=== PATIENT | female | born 1960 | race Caucasian/White ===

== ENCOUNTER → 2021-11-11 10:27 | Outpatient (CLI) | payer BC, SELFPAY ==
[2021-11-11 19:45] LABS: Hemoglobin A1C% w Est Avg Glu 5.5 % (4.0-6.0)
[2021-11-11 19:46] LABS: Add Manual Diff / Slide Review NO; Basophils Absolute Auto 0 /uL (0-100); Basophils Percent Auto 1.2 % (0-2); Eosinophils Absolute Auto 200 /uL (0-450); Hematocrit 39.5 % (36-46); Hemoglobin 13.2 g/dL (12.0-16.0); Lymphocytes Absolute Auto 1200 /uL (1100-4500); Lymphocytes Percent Auto 28.9 % (25-40); Mean Corpuscular HGB Conc 33.4 % (30-36); Mean Corpuscular Hemoglobin 28.6 PG (26-34); Mean Corpuscular Volume 85.5 fL (80-100); Monocytes Absolute Auto 400 /uL (0-900); Monocytes Percent Auto 8.9 % (3-14); Neutrophils Absolute Auto 2400 /uL (1500-7000); Platelet Count 175 X10^3/uL (150-400); Red Blood Cell Count 4.61 X10^6/uL (4.0-5.2); Red Cell Distribution Width 14.3 % (11.6-14.8); White Blood Cell Count 4.3 X10^3/uL (4.5-11.0)
[2021-11-11 19:51] LABS: Alanine Aminotransferase 13 IU/L (<35); Albumin 3.6 g/dL (3.5-5.0); Albumin Globulin Ratio 1.3 (1.0-2.8); Alkaline Phosphatase 84 U/L (38-126); Aspartate Aminotransferase 23 IU/L (14-36); BUN Creatinine Ratio 13.3 (6-22); Bilirubin Total 0.5 mg/dL (0.2-1.3); Blood Urea Nitrogen 10 mg/dL (7-17); Calcium 8.5 mg/dL (8.4-10.2); Carbon Dioxide 25 mmol/L (22-32); Chloride 107 mmol/L (98-107); Cholesterol 198 mg/dL (140-199); Estimated Glomerular Filt Rate > 60 mL/min (>60); Globulin 2.7 g/dL (1.7-4.1); Glucose 98 mg/dL (80-110); HDL Cholesterol 32 mg/dL (40-60); HEMOLYSIS < 15 (0-50); LDL Cholesterol Calculated 133 mg/dL (<100); Sodium 140 mmol/L (137-145); Total Protein 6.3 g/dL (6.3-8.2); Triglycerides 167 mg/dL (35-150)
[2021-11-11 20:02] LABS: Vitamin D 25 Hydroxy (D3) 45.7 ng/mL (30.0-100.0)
[2021-11-11 20:15] LABS: TSH w/ Reflex to FT4 2.43 uIU/mL (0.47-4.68)
[2021-11-11 20:36] LABS: Vitamin B12 955 pg/mL (239-931)
[2021-11-13 17:09] LABS: Hep C Virus Ab w/Reflex Quant NEGATIVE s/c (NEGATIVE)
== END ==
PROVIDERS: PCP Physician Assistant; Visit Provider Physician Assistant
DX: E55.9 Vitamin D deficiency, unspecified (principal); Z98.84 Bariatric surgery status
CPT/HCPCS: 80053; 80061; 82306; 82607; 83036; 84443; 85025; 86803

== ENCOUNTER → 2022-05-16 10:47 | Outpatient (CLI) | payer BC, SELFPAY ==
--- NOTE | 2022-05-16 10:50 | DI.RAD.S_ITS ---
PROCEDURE: XR FOOT RT MIN 3V INDICATIONS: Pain TECHNIQUE: 3 views of the foot were acquired. COMPARISON: None. FINDINGS: Bones: No fractures or dislocations. No suspicious bony lesions. Moderate calcaneal spur present. There is flattening the longitudinal arch Soft tissues: No tibiotalar joint effusion. Achilles tendon appears normal. IMPRESSION: Moderate calcaneal spur Pes planus Approved by: Ru Alvarenga M.D. on 05/16/2022 at 11:31
== END ==
PROVIDERS: PCP Physician Assistant; Referring Provider Podiatrist Foot & Ankle Surgery; Visit Provider Podiatrist Foot & Ankle Surgery
DX: M21.41 Flat foot [pes planus] (acquired), right foot (principal); M77.31 Calcaneal spur, right foot; M79.671 Pain in right foot
CPT/HCPCS: 73630

== ENCOUNTER → 2022-08-18 10:38 | Outpatient (CLI) | payer BC, SELFPAY ==
--- NOTE | 2022-08-18 10:40 | DI.RAD.S_ITS ---
Bone Density Report Name: JOSE ALEJANDRO TORREZ Age: 61 Sex: Female Ethnicity: White Date of : 1960 Indication: postmenopausal; screening for osteoporosis; Referring Provider: JANICE MARTINEZ Study: Bone densitometry was performed. Exam Date: August 18, 2022 Accession number: [id number] Bone Density: Region BMD T-score Z-score Classification AP Spine(L1, L2, L4) 1.118 0.8 2.2 Normal Femoral Neck (Left) 0.975 1.1 2.4 Normal Total Hip (Left) 0.999 0.5 1.5 Normal Femoral Neck (Right) 0.847 0.0 1.3 Normal Total Hip (Right) 0.980 0.3 1.3 Normal Total Hip Mean 0.989 0.4 1.4 Normal World Health Organization criteria for BMD impression classify patients as: Normal (T-score at or above -1.0), Osteopenia (T-score between -1.0 and -2.5), or Osteoporosis (T-score at or below -2.5). 10-year Fracture Risk: FRAX not reported because: All T-scores for Spine Total, Hip Total, Femoral Neck at or above -1.0 Impression: The patient has normal bone mass. Discussion: BONE DENSITY IS ABOVE THE MINIMUM DESIRABLE LEVEL AT ALL SKELETAL SITES TESTED. This patient's bone mineral density is above the minimum desirable level (T-score -1.0 or better) at all sites measured. The patient should follow a healthful lifestyle (good nutrition with adequate calcium and vitamin D, and appropriate weight-bearing exercise). Follow-Up: Consider repeating this study in 5 years or sooner if there is some new clinical indication. Reported by: NEHEMIAS WEINBERG M.D. on 08/18/2022 12:12:00 PM.
--- NOTE | 2022-08-18 10:40 | DI.MG.S_ITS ---
BILATERAL DIGITAL SCREENING MAMMOGRAM 3D/2D WITH CAD: 08/18/2022 CLINICAL: Routine screening. Baseline exam by default. No prior exams were available for comparison. There are scattered areas of fibroglandular density in both breasts (category b / 25%-50% glandular tissue). Current study was also evaluated with a Computer Aided Detection (CAD) system. No significant masses, calcifications, or other findings are seen in either breast. IMPRESSION: NEGATIVE There is no mammographic evidence of malignancy. A 1 year screening mammogram is recommended. Based on the Tyrer Cuzick model (a risk assessment model) the patient's lifetime risk is 7.0% and her 10 year risk is 2.8%. According to the ACR, ACS, and NCCN guidelines, an annual breast MRI exam along with mammogram is recommended if the patient's lifetime risk is 20% or greater. This exam was interpreted at Station ID: [id number]. NOTE: For mammograms, a report in lay terms will be sent to the patient. Approximately 15% of breast malignancies will not be visualized mammographically. In the management of a palpable breast mass, a negative mammogram must not discourage biopsy of a clinically suspicious lesion. Electronically Signed By: Matt lua/[email or web address]:08/18/2022 12:58:25 letter sent: Normal Exam ACR BI-RADS Category 1: Negative [id number]
== END ==
PROVIDERS: PCP Physician Assistant; Referring Provider Physician Assistant; Visit Provider Physician Assistant
DX: Z12.31 Encounter for screening mammogram for malignant neoplasm of breast (principal); Z13.820 Encounter for screening for osteoporosis; Z78.0 Asymptomatic menopausal state
CPT/HCPCS: 77063; 77067; 77080

== ENCOUNTER → 2023-01-13 09:02 | Outpatient (CLI) | payer OTHER, SELFPAY ==
[2023-01-13 19:56] LABS: Add Manual Diff / Slide Review NO; Basophils Absolute Auto 0 /uL (0-100); Eosinophils Absolute Auto 100 /uL (0-450); Eosinophils Percent Auto 2.6 % (2-4); Hematocrit 39.6 % (36-46); Hemoglobin 13.2 g/dL (12.0-16.0); Lymphocytes Absolute Auto 1800 /uL (1100-4500); Mean Corpuscular HGB Conc 33.3 % (30-36); Mean Corpuscular Hemoglobin 27.8 PG (26-34); Mean Corpuscular Volume 83.6 fL (80-100); Monocytes Absolute Auto 400 /uL (0-900); Neutrophils Absolute Auto 2800 /uL (1500-7000); Neutrophils Percent Auto 54.4 % (50-75); Platelet Count 222 X10^3/uL (150-400); Red Blood Cell Count 4.74 X10^6/uL (4.0-5.2); Red Cell Distribution Width 14.1 % (11.6-14.8); White Blood Cell Count 5.2 X10^3/uL (4.5-11.0)
[2023-01-13 20:10] LABS: Alanine Aminotransferase 19 IU/L (<35); Albumin 3.7 g/dL (3.5-5.0); Albumin Globulin Ratio 1.3 (1.0-2.8); Alkaline Phosphatase 107 U/L (38-126); Aspartate Aminotransferase 23 IU/L (14-36); BUN Creatinine Ratio 18.2 (6-22); Bilirubin Total 0.4 mg/dL (0.2-1.3); Blood Urea Nitrogen 14 mg/dL (7-17); Calcium 9.5 mg/dL (8.4-10.2); Carbon Dioxide 28 mmol/L (22-32); Chloride 104 mmol/L (98-107); Cholesterol 212 mg/dL (140-199); Estimated Glomerular Filt Rate > 60 mL/min (>60); Globulin 2.8 g/dL (1.7-4.1); Glucose 99 mg/dL (80-110); HDL Cholesterol 35 mg/dL (40-60); HEMOLYSIS 19 (0-50); LDL Cholesterol Calculated 123 mg/dL (<100); Sodium 138 mmol/L (137-145); Total Protein 6.5 g/dL (6.3-8.2); Triglycerides 272 mg/dL (35-150)
[2023-01-13 20:11] LABS: Potassium 4.1 mmol/L (3.4-5.1)
[2023-01-13 20:20] LABS: Vitamin D 25 Hydroxy (D3) 91.9 ng/mL (30.0-100.0)
[2023-01-13 21:21] LABS: Folate > 20.0 ng/mL (2.76-20.0); Vitamin B12 Reflex MMA if <400 826 pg/mL (239-931)
== END ==
PROVIDERS: PCP Family Medicine; Visit Provider Family Medicine
DX: R03.0 Elevated blood-pressure reading, without diagnosis of hypertension (principal); Z98.84 Bariatric surgery status; Z13.1 Encounter for screening for diabetes mellitus; Z13.6 Encounter for screening for cardiovascular disorders
CPT/HCPCS: 80053; 80061; 82306; 82607; 82746; 85025

== ENCOUNTER → 2023-04-28 10:34 | Outpatient (CLI) | payer OTHER, SELFPAY ==
--- NOTE | 2023-04-28 10:36 | DI.RAD.S_ITS ---
PROCEDURE: XR KNEE RT 3V INDICATIONS: BILTAERAL PAIN TECHNIQUE: 3 views of the knee were acquired. COMPARISON: None. FINDINGS: Bones: No fractures or dislocations. No suspicious bony lesions. Stippled calcification in the proximal fibular head Soft tissues: No joint effusion. No suspicious soft tissue calcifications. 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 Approved by: Ru Alvarenga M.D. on 04/28/2023 at 19:38
--- NOTE | 2023-04-28 10:36 | DI.RAD.S_ITS ---
PROCEDURE: XR KNEE LT 3V INDICATIONS: BILATERAL PAIN TECHNIQUE: 3 views of the knee were acquired. COMPARISON: None. FINDINGS: Bones: No fractures or dislocations. No suspicious bony lesions. Mild medial compartment joint space narrowing with small marginal osteophyte Soft tissues: No joint effusion. No suspicious soft tissue calcifications. IMPRESSION: Mild medial compartment osteoarthritis Approved by: Ru Alvarenga M.D. on 04/28/2023 at 19:40
--- NOTE | 2023-04-28 10:37 | DI.RAD.S_ITS ---
PROCEDURE: XR HIP W PEL IF DONE BILAT 2V INDICATIONS: BILATERAL PAIN TECHNIQUE: AP pelvis with lateral view(s) of the bilateral hip(s). COMPARISON: None. FINDINGS: Bones: Nonuniform joint space narrowing of the right hip, with osteophytic lipping of the right acetabulum. Nonuniform joint space narrowing of the left hip, with bulky osteophytes of the left femoral neck. Soft tissues: The visualized bowel gas pattern is normal. No suspicious soft tissue calcifications. IMPRESSION: Mild right and moderate left hip osteoarthritis. Dictated by: Aron Sutherland M.D. on 04/28/2023 at 15:07 Approved by: Aron Sutherland M.D. on 04/28/2023 at 15:10
== END ==
PROVIDERS: Family Provider Family Medicine; PCP Family Medicine; Referring Provider Family Medicine; Visit Provider Family Medicine
DX: M25.551 Pain in right hip (principal); M25.552 Pain in left hip; G89.29 Other chronic pain; M25.561 Pain in right knee; M25.562 Pain in left knee; M16.0 Bilateral primary osteoarthritis of hip; M17.12 Unilateral primary osteoarthritis, left knee
CPT/HCPCS: 73521; 73562

== ENCOUNTER 2023-08-03 09:51 | Day surgery (SDC) | payer OTHER, SELFPAY ==
[2023-08-03] MEDS: FLEETS ENEMA 1 EACH PR (10:19)
[2023-08-03 10:32] VITALS: BP 143/88; PULSE 70; RESP 16; TEMP 36.8; O2SAT 97
[2023-08-03] MEDS: LACTATED RINGERS 1,000 ML 42 ML IV (10:38)
--- NOTE | 2023-08-03 10:54 | PM.HP.1 ---
History of Present Illness History of Present Illness Date Patient Seen: 08/03/23 Time Patient Seen: 10:54 Chief complaint: Screening Colonoscopy Narrative: 62-year-old woman here for screening colonoscopy. Last colonoscopy 10 years ago normal. No history of colon cancer in first-degree relatives. Recent heartburn symptoms otherwise no abdominal concerns. FORMERLY [facility], [facility] Medical History Menopausal symptoms Recurrent HSV (herpes simplex virus) Pneumonia Asthma exacerbation Morbid (severe) obesity due to excess calories Surgical History History of bariatric surgery Social History Smoking Status: Never smoker alcohol intake: never additional social history: She climbed half dome at [place] 8 years ago 01/2023 mammogram a couple months ago colon cancer screening: colonoscopy at 51 yo x 10 yrs COLON CANCER in family. 12/2022 Meds Home Medications and Allergies Home Medications Medication Instructions Recorded Confirmed Type cetirizine 10 mg capsule (Zyrtec) 10 mg PO DAILY 10/21/21 08/03/23 History fluticasone furoate 27.5 2 spray intranasal DAILY 10/23/21 08/03/23 History mcg/actuation nasal spray,suspension (Flonase Sensimist) cholecalciferol (vitamin D3) 25 25 mcg PO DAILY #90 caps 02/10/22 08/03/23 Rx mcg (1,000 unit) capsule albuterol sulfate 2.5 mg/3 mL See Rx Instructions .Route 05/11/22 08/03/23 Rx (0.083 %) solution for nebulization .COMPLEX #180 mL albuterol sulfate 90 mcg/actuation 1 inh inhalation Q4-6H PRN asthma 09/24/22 08/03/23 Rx breath activated powder inhaler #1 ea estradiol 0.0375 mg/24 hr 1 patch transdermal 2XW #24 ea 01/29/23 08/03/23 Rx semiweekly transdermal patch (Vivelle-Dot) progesterone micronized 100 mg 100 mg PO BEDTIME 30 days #90 caps 01/29/23 08/03/23 Rx capsule (Prometrium) montelukast 10 mg tablet 10 mg PO DAILY #90 tabs 03/01/23 08/03/23 Rx Custom Pantyhose Style Compression #3 ea 05/03/23 Rx Garments acyclovir 400 mg tablet 400 mg PO BID #60 tabs 07/12/23 08/03/23 Rx esomeprazole magnesium 40 mg 40 mg PO BID 08/03/23 08/03/23 History capsule,delayed release (Nexium) Allergies Allergy/AdvReac Type Severity Reaction Status Date / Time No Known Drug Allergies Allergy Verified 08/03/23 10:25 Exam Vital Signs (past 8 hours): - 08/03/23 10:32 Temperature 98.2 F Pulse Rate 70 Respiratory Rate 16 Blood Pressure 143/88 H Pulse Oximetry 97 Oxygen Delivery Method Room Air Oxygen Delivery Method Room Air Narrative Exam Narrative: General adult woman oriented no acute distress Chest nonlabored respiration Extremities warm well perfused Assessment & Plan Assessment & Plan narrative: The patient requires colorectal screening and colonoscopy is recommended. Technical details were discussed. Risks, benefits, alternatives explained. Risks including but not limited to myocardial infarction, aspiration, bleeding, pain, missed lesion, incomplete examination, need for further radiographic studies, intestinal injury, and need for major abdominal surgery were discussed. All questions were answered to their satisfaction, and they are in agreement with this plan.
[2023-08-03 11:26] VITALS: BP 119/65; PULSE 62; RESP 15; TEMP 36; O2SAT 95
--- NOTE | 2023-08-03 11:27 | P.OP.COLON_ITS ---
Operative Date/Time/Diagnoses Date of procedure: 08/03/23 Time of procedure: 11:27 Pre-op diagnosis: Colorectal screening Procedure & Clinicians Study performed: Screening colonoscopy Same procedure as scheduled: Yes Indications: Colorectal screening Surgeon: Johnny Kim Procedure Notes Procedure in detail: The history and physical was performed/updated and the patient is ASA class is 2. The procedure was discussed in detail with the patient. Potential risks co mplications including infection, bleeding, missed diagnosis, perforation, need for surgery, and were explained. Their questions were answered and informed consent was obtained. Patient was brought to the procedure room and placed standard monitoring equipment. The patient's vital signs were monitored continuously throughout the entire procedure. Prior to starting time-out was performed. The patient was placed in the left lateral recumbent position. Procedural sedation was administered by anesthesia. Examination began with a thorough inspection of the perianal area there was no evidence of fissures, fistulae, external hemorrhoids or cutaneous malignancy. The colonoscopy scope was then placed into the anal canal and was advanced to the cecum, which was identified by the ileocecal valve, the appendiceal orifice and the confluence of the taenia. The scope was then slowly withdrawn examining colon thoroughly in all directions, irrigating it of any residual stool. The scope was retroflexed within the rectum The patient tolerated the procedure well. They will be discharged once criteria are met. The prep was of poor quality. The withdrawl time was 7 minutes. FINDINGS * Tortuous colon * No masses or polyps. The quality of the prep was such that lesions less than 1 cm would not be readily identifiable. * Internal hemorrhoids Specimen(s): none sent Impression: Normal colonoscopy Post-procedure Recommendations: Colonoscopy in 5 years (Five years given the quality of today's prep) Disposition: same day surgery
[2023-08-03 11:31] VITALS: BP 117/67; PULSE 70; RESP 17; O2SAT 96
[2023-08-03 11:36] VITALS: BP 122/62; PULSE 65; RESP 17; O2SAT 97
[2023-08-03 11:46] VITALS: BP 118/65; PULSE 68; RESP 14; TEMP 36.7; O2SAT 98
== END 2023-08-03 12:12 | disposition home or self-care (01) ==
PROVIDERS: Family Provider Family Medicine; PCP Family Medicine; Referring Provider Surgery; Visit Provider Surgery
PROC: 0DJD8ZZ Inspection of Lower Intestinal Tract, Via Natural or Artificial Opening Endoscopic (ICD-10-PCS; CPT 45378; principal; 2023-08-03 11:15)
DX: Z12.11 Encounter for screening for malignant neoplasm of colon (principal); K64.8 Other hemorrhoids
CPT/HCPCS: 45378; J2704

== ENCOUNTER → 2024-01-25 14:56 | Outpatient (CLI) | payer OTHER, SELFPAY ==
--- NOTE | 2024-01-25 14:57 | DI.MG.S_ITS ---
BILATERAL DIGITAL SCREENING MAMMOGRAM 3D/2D WITH CAD: 01/25/2024 CLINICAL: Routine screening. Family history of breast cancer. Comparison is made to exam dated: 08/18/2022 mammogram - [facility]. There are scattered areas of fibroglandular density (category b / 25%-50% glandular tissue). Current study was also evaluated with a Computer Aided Detection (CAD) system. No significant masses, calcifications, or other findings are seen in either breast. There has been no significant interval change. IMPRESSION: NEGATIVE There is no mammographic evidence of malignancy. A 1 year screening mammogram is recommended. Based on the Tyrer Cuzick model (a risk assessment model) the patient's lifetime risk is 6.6% and her 10 year risk is 2.8%. According to the ACR, ACS, and NCCN guidelines, an annual breast MRI exam along with mammogram is recommended if the patient's lifetime risk is 20% or greater. This exam was interpreted at Station ID: [id number]. NOTE: For mammograms, a report in lay terms will be sent to the patient. Approximately 15% of breast malignancies will not be visualized mammographically. In the management of a palpable breast mass, a negative mammogram must not discourage biopsy of a clinically suspicious lesion. Electronically Signed By: Matt lua/lucero:01/25/2024 17:09:37 letter sent: Normal Exam ACR BI-RADS Category 1: Negative
== END ==
LOC: MAMMO 14:56
PROVIDERS: Family Provider Family Medicine; PCP Family Medicine; Referring Provider Family Medicine; Visit Provider Family Medicine
DX: Z12.31 Encounter for screening mammogram for malignant neoplasm of breast (principal); Z80.3 Family history of malignant neoplasm of breast
CPT/HCPCS: 77063; 77067

== ENCOUNTER 2024-03-07 10:45 | Outpatient (RCR) | payer OTHER, SELFPAY ==
--- NOTE | 2023-03-24 16:55 | PT.OIE ---
Current Diagnoses Lymphedema, not elsewhere classified (03/24/23) Past Medical History (Last Updated 02/18/23 @ 16:00 by Elina Johnson MD) Asthma exacerbation Menopausal symptoms Morbid (severe) obesity due to excess calories Pneumonia Recurrent HSV (herpes simplex virus) Past Surgical History (Last Updated 01/03/23 @ 11:17 by Elina Johnson MD) History of bariatric surgery Visit Care Team Role Provider Type Elina Johnson MD Attending Provider Physician Family Provider Primary Care Provider Referring Provider Specialty: Family Practice Address: [address] [place] [address], [facility] Fax: Email: [email or web address] Physical Therapy Initial Evaluation PT-OP-A Visit Information Start: 03/23/23 14:26 Freq: Status: Active Protocol: Document 03/24/23 10:34 [facility] (Rec: 03/24/23 12:19 [facility]AK [id number]) Out-Patient Physical Therapy Visit Information Visit Information Visit Type Initial Evaluation Visit Start Time 10:34 Visit Stop Time 11:58 Total Visit Minutes 84 Visit Number 1 Evaluation Information Evaluation Date 03/24/23 Precautions Precautions neva knee pain, right hip pain PT-OP-B Current Condition Start: 03/23/23 14:26 Freq: Status: Active Protocol: Document 03/24/23 10:34 [facility] (Rec: 03/24/23 12:19 [facility]AK [id number]) Current Condition History of Current Condition Onset Date 19 y/o Current Complaints LE swelling, newly diagnosed lipedema History of Current Condition Reports her physician diagnosed lipedema 3 months ago. States she thinks she has had since 19 y/o, got worse with and with time. Reports pain and easy bruising palpable nodular areas neva LE's. Put on hormone replacement therapy 1 year ago which was wrong hormone combination and has contributed to fatigue and decreased activity level, and some weight gain which has made lipedema worse. Recently stumbled and injured knees resulting in even more swelling, can't bend knees very well. Massage therapist helped her decrease the knee swelling some, but returns after massage session. Patient also reports having some right hip pain with no known cause. Has done some online research about lipidema . Has started walking in the local pool and experiences some pain relief. Hasn't tried any compression garments as not sure what to try. No other treatment for her lipedema. Patient is 4'10, 293 lbs. Prior Treatments and Tests Gastric sleeve surgery 13 years ago, having horrible acid reflux, may be having another procedure. Treatment Goals Patient/Caregiver Goals Decrease and be able to self- manage her lipedema including use of compression garments. 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, no longer working Functional Limitations- Recreation/ unable to hike due to pain and Hobbies heaviness of legs PT-OP-C Subjective Start: 03/23/23 14:26 Freq: Status: Active Protocol: Document 03/24/23 10:34 [facility] (Rec: 03/24/23 12:19 [facility] [id number]) OP-PT Pain Assessment Pain Assessment Grid Paper Pain Assessment Grid Completed Yes Location neva LE's Pain Location Details neva knees and right hip Intensity 8 Scale Used Numeric (0 - 10) Description Aching,Pressure,Tightness Frequency Frequent Pain Aggravating Factors ADL's,Activity,Standing, Walking,Stair Climbing Pain Alleviating Factors Inactivity,Aqua Therapy PT-OP-F Manual Assessment Start: 03/23/23 14:26 Freq: Status: Active Protocol: Document 03/24/23 10:34 [facility] (Rec: 03/24/23 16:55 [facility] [id number]) Manual Assessments Soft Tissue Assessment Soft Tissue Mobility Assessment Palpation of neva LE's reveals tenderness, multiple nodules throughout LE's. No warmth or redness, no pitting PT-OP-G Mobility & Gait Start: 03/23/23 14:26 Freq: Status: Active Protocol: Document 03/24/23 10:34 [facility] (Rec: 03/24/23 16:55 [facility] [id number]) OP Gait Assessment Gait Gait Assistance Required: Independent Assistive Devices Assistive Device None Gait Deviations General Gait Pattern Decreased Stride Length, Decreased Feet Clearance Factors Limiting Gait Function Factors Limiting Gait Function Pain PT-OP-H Neuro Start: 03/23/23 14:26 Freq: Status: Active Protocol: Document 03/24/23 10:34 [facility] (Rec: 03/24/23 16:55 [facility] [id number]) Sensation Evaluation Gross Sensation Gross Sensation WNL PT-OP-K Range of Motion Start: 03/23/23 14:26 Freq: Status: Active Protocol: Document 03/24/23 10:34 [facility] (Rec: 03/24/23 16:55 [facility] [id number]) Hip Goniometric Range of Motion Hip neva Hip ROM WFL Yes Comments pain on right all motions Hip ROM Limitations Hip ROM Limitations Pain Knee Goniometric Range of Motion Knee Left Knee ROM WFL No Flexion Active (degrees) 100 Extension Active (degrees) 0 Right Knee ROM WFL No Flexion Active (degrees) 95 Extension Active (degrees) 0 Knee ROM Limitations Knee ROM Limitations Pain,Swelling Ankle and Foot Goniometric Range of Motion Ankle and Foot neva Ankle/Foot ROM WFL Yes PT-OP-M Strength Start: 03/23/23 14:26 Freq: Status: Active Protocol: Document 03/24/23 10:34 [facility] (Rec: 03/24/23 16:55 [facility] [id number]) Hip Strength Hip Manual Muscle Testing Right Flexion (L2) 4- Good- Extension (S1) 3+ Fair+ Abduction 3+ Fair+ Adduction 4- Good- External Rotation 3+ Fair+ Internal Rotation 4- Good- Comments pain all resisted motions Left Flexion (L2) 4+ Good+ Extension (S1) 4- Good- Abduction 4- Good- Adduction 4 Good External Rotation 4- Good- Internal Rotation 4 Good Knee Strength Knee Manual Muscle Testing Right Flexion (S2) 4- Good- Extension (L3) 4- Good- Comments pain right Left Flexion (S2) 4 Good Extension (L3) 4 Good PT-OP-N Lymphedema Start: 03/23/23 14:26 Freq: Status: Active Protocol: Document 03/24/23 10:34 [facility] (Rec: 03/24/23 12:19 [facility] [id number]) Lymphedema Measurements Lower Extremity Circumference Measurements Right Affected MT Heads 23.5 cm Mid-foot 24 cm Medial Malleolus 30.5 cm 10 cm From Medial Malleolus 36.8 cm 20 cm From Medial Malleolus 49.2 cm 30 cm From Medial Malleolus 56.5 cm 40 cm From Medial Malleolus 52.9 cm 50 cm From Medial Malleolus 64.3 cm 60 cm From Medial Malleolus 71 cm 70 cm From Medial Malleolus 81.9 cm 80 cm From Medial Malleolus 93.5 cm Knee Joint 56.9 cm Left Affected MT Heads 25 cm Mid-foot 26.2 cm Medial Malleolus 31.5 cm 10 cm From Medial Malleolus 38.2 cm 20 cm From Medial Malleolus 56.2 cm 30 cm From Medial Malleolus 53.6 cm 40 cm From Medial Malleolus 52.5 cm 50 cm From Medial Malleolus 65 cm 60 cm From Medial Malleolus 73.9 cm 70 cm From Medial Malleolus 84.4 cm 80 cm From Medial Malleolus 97 cm Knee Joint 56 cm - fom ant ankle crease widest hip 166.5 widest .5 waist 117.8 PT-OP-Q Treatments Start: 03/23/23 14:26 Freq: Status: Active Protocol: Document 03/24/23 10:34 [facility] (Rec: 03/24/23 12:19 [facility] [id number]) Lymphedema Treatment Manual Lymphatic Drainage Comments initial instruction, issued HO and given information regarding YouTube video Lymphedema Wrapping Other educated in what is involved in bandaging, come prepared for bandaging next session with clothing and footwear issued HO and given information regarding YouTube video Sequential Lymphedema Exercises Comments initial instruction, issued HO and given information regarding YouTube video Compression Garment Assessment Compression Garment Assessment Details initial discussion and shown some options online. Encouraged contact insurance co regarding coverage and Jacqueline'johnathan to schedule consult in about 1 month regardintg compression garments. Patient Education Lymphedema Pathology educated using posters Lymphedema Prevention educated Lymphedema Precautions educated Compression Garments educated as above Self Manual Lymphatic Drainage educated as above Sequential Lymphedema Exercises educated as above PT-OP-T Assessment and Plan Start: 03/23/23 14:26 Freq: Status: Active Protocol: Document 03/24/23 10:34 [facility] (Rec: 03/24/23 12:19 [facility] [id number]) Physical Therapy Assessment Rehab Potential Rehabilitation Potential Good Evaluation Complexity Number of Personal Factors/Comorbidities 1-2 Number of Body Systems Impaired 3 Clinical Presentation at Evaluation Evolving Impairments Impairments Activity Tolerance,Edema, Functional Activities,ROM Goals Three Impairment pain and limited ROM and strength neva knees Impairment limits ability to stand and walk in home and community Short Term Goal (STG) Patient to be instructed in lipedema management as well as land and aquatic-based ther ex for improvement of neva knee ROM and strength for improved function in the home and community. STG Duration 2 Skilled Nursing Goal (LTG) Patient to demonstrate neva knee ROM WFL and strength at least 4+/5 and be able to stand and walk at least 30 min . LTG Duration 06/23/23 Two Impairment activity tolerance Impairment Lymphedema Life Impact Scale 56% Short Term Goal (STG) Decrease Lymphedema Life Impact Scale to no greater than 40% as measure of improved activity tolerance and quality of life. STG Duration 2 Skilled Nursing Goal (LTG) Decrease Lymphedema Life Impact Scale to no greater than 20% as measure of improved activity tolerance and quality of life. LTG Duration 06/23/23 One Impairment lipedema bilateral LE's Short Term Goal (STG) Patient will be instructed in all aspects of lipedema self- care to include skin care, self-massage, self-bandaging/ compression options, and lymphedema exercises. STG Duration 04/24/23 Skilled Nursing Goal (LTG) Decrease patient?s lipedema to a stable level (no increase or decrease greater than 1 cm over the course of 1 week), patient to be independent with all aspects of self care as above for lipedema, and will obtain appropriate compression garment for lipedema management in the home. Consider home pneumatic compression pump for management of lipedema LTG Duration 06/23/23 Assessment Summary Assessment Patient presents to PT with recent diagnosis of lipedema though verbalizes having since she can remember. Has had gradual worsening of her edema and fatty deposits with typical foot sparing, symmetrical involvement neva LE 's, and tenderness and bruising neva LE's. She hasn't had significant treatment for her lipedema but after some online research has gone to a massage therapist and experienced temporary reduction of edema in knees. She also has started doing water walking. Patient lipedema affecting all aspects of patient's life and she has high potential for further progression without treatment. Feel patient would benefit highly from complete decongestive therapy to reduce her edema, educate her in all aspects of lipedema management, and help her obtain appropriate compression garments. Feel she may also benefit from use of a sequential pneumatic pump in the home. She may be a good candidate for lipedema surgery in the future as well. Physical Therapy Plan Frequency and Duration Frequency of Treatment 20 visits Duration of treatment (weeks) 12 Plan of Care Start Date 03/24/23 Plan of Care End Date 06/23/23 Therapeutic Interventions Therapeutic Interventions Home Exercise Program, Lymphedema Management,Manual Therapy,Patient/Caregiver Education,Self-Care/Home Management,Therapeutic Activities,Therapeutic Exercises Modalities Vasopneumatic Devices Next Visit Focus/Plan Next Note Type Treatment Note Next Visit Plan Perform MLD, provide skin care with low pH lotion application, apply compression bandaging, review lymphedema exercises, further discuss compression options.
--- NOTE | 2023-03-24 16:56 | PT.OPPOC ---
Physical, Occupational & Speech Therapy At [facility] Current Diagnoses Lymphedema, not elsewhere classified (03/24/23) Visit Care Team Role Provider Type Elina Johnson MD Attending Provider Physician Family Provider Primary Care Provider Referring Provider Specialty: Family Practice Address: [address] [place] [address], [id number] Fax: Email: [email or web address] Plan Of Care PT-OP-T Assessment and Plan Start: 03/23/23 14:26 Freq: Status: Active Protocol: Document 03/24/23 10:34 [facility] (Rec: 03/24/23 12:19 [facility] [id number]) Physical Therapy Assessment Rehab Potential Rehabilitation Potential Good Evaluation Complexity Number of Personal Factors/Comorbidities 1-2 Number of Body Systems Impaired 3 Clinical Presentation at Evaluation Evolving Impairments Impairments Activity Tolerance,Edema, Functional Activities,ROM Goals Three Impairment pain and limited ROM and strength neva knees Impairment limits ability to stand and walk in home and community Short Term Goal (STG) Patient to be instructed in lipedema management as well as land and aquatic-based ther ex for improvement of neva knee ROM and strength for improved function in the home and community. STG Duration 04/24/23 Fpc Goal (LTG) Patient to demonstrate neva knee ROM WFL and strength at least 4+/5 and be able to stand and walk at least 30 min . LTG Duration 06/23/23 Two Impairment activity tolerance Impairment Lymphedema Life Impact Scale 56% Short Term Goal (STG) Decrease Lymphedema Life Impact Scale to no greater than 40% as measure of improved activity tolerance and quality of life. STG Duration 04/24/23 Tentering Machine Feeder Goal (LTG) Decrease Lymphedema Life Impact Scale to no greater than 20% as measure of improved activity tolerance and quality of life. LTG Duration 06/23/23 One Impairment lipedema bilateral LE's Short Term Goal (STG) Patient will be instructed in all aspects of lipedema self- care to include skin care, self-massage, self-bandaging/ compression options, and lymphedema exercises. STG Duration 04/24/23 Fpc Goal (LTG) Decrease patient?s lipedema to a stable level (no increase or decrease greater than 1 cm over the course of 1 week), patient to be independent with all aspects of self care as above for lipedema, and will obtain appropriate compression garment for lipedema management in the home. Consider home pneumatic compression pump for management of lipedema LTG Duration 06/23/23 Assessment Summary Assessment Patient presents to PT with recent diagnosis of lipedema though verbalizes having since she can remember. Has had gradual worsening of her edema and fatty deposits with typical foot sparing, symmetrical involvement neva LE 's, and tenderness and bruising neva LE's. She hasn't had significant treatment for her lipedema but after some online research has gone to a massage therapist and experienced temporary reduction of edema in knees. She also has started doing water walking. Patient lipedema affecting all aspects of patient's life and she has high potential for further progression without treatment. Feel patient would benefit highly from complete decongestive therapy to reduce her edema, educate her in all aspects of lipedema management, and help her obtain appropriate compression garments. Feel she may also benefit from use of a sequential pneumatic pump in the home. She may be a good candidate for lipedema surgery in the future as well. Physical Therapy Plan Frequency and Duration Frequency of Treatment 20 visits Duration of treatment (weeks) 12 Plan of Care Start Date 03/24/23 Plan of Care End Date 06/23/23 Therapeutic Interventions Therapeutic Interventions Home Exercise Program, Lymphedema Management,Manual Therapy,Patient/Caregiver Education,Self-Care/Home Management,Therapeutic Activities,Therapeutic Exercises Modalities Vasopneumatic Devices Next Visit Focus/Plan Next Note Type Treatment Note Next Visit Plan Perform MLD, provide skin care with low pH lotion application, apply compression bandaging, review lymphedema exercises, further discuss compression options. Plan of Care Dates Plan of Care Start Date 03/24/23 Plan of Care End Date 06/23/23 Electronically Signed by: Christelle Martinez PT 03/24/23 [id number] If you are in agreement with this Plan of Care, please return a signed and dated copy. I have reviewed this Plan of Care and certify that the skilled therapy services above are required to meet the patient?s needs. Physician Signature Date Printed Name and Credentials Clinical Instructor Signature Printed Name and Credentials
--- NOTE | 2023-03-29 11:54 | PT.OTN ---
Current Diagnoses Lymphedema, not elsewhere classified (03/29/23) Physical Therapy Treatment Note PT-OP-A Visit Information Start: 03/23/23 14:26 Freq: Status: Active Protocol: Document 03/29/23 12:59 SAK (Rec: 03/29/23 13:46 [facility] [id number]) Out-Patient Physical Therapy Visit Information Visit Information Visit Type Treatment Note Visit Start Time 13:00 Visit Stop Time 14:25 Total Visit Minutes 85 Visit Number 2 Evaluation Information Evaluation Date 03/24/23 Precautions Precautions neva knee pain, right hip pain PT-OP-B Current Condition Start: 03/23/23 14:26 Freq: Status: Active Protocol: Document 03/29/23 12:59 SAK (Rec: 03/29/23 13:46 SAK [id number]) Current Condition History of Current Condition Onset Date 19 y/o Current Complaints LE swelling, newly diagnosed lipedema History of Current Condition Reports her physician diagnosed lipedema 3 months ago. States she thinks she has had since 19 y/o, got worse with and with time. Reports pain and easy bruising palpable nodular areas neva LE's. Put on hormone replacement therapy 1 year ago which was wrong hormone combination and has contributed to fatigue and decreased activity level, and some weight gain which has made lipedema worse. Recently stumbled and injured knees resulting in even more swelling, can't bend knees very well. Massage therapist helped her decrease the knee swelling some, but returns after massage session. Patient also reports having some right hip pain with no known cause. Has done some online research about lipidema . Has started walking in the local pool and experiences some pain relief. Hasn't tried any compression garments as not sure what to try. No other treatment for her lipedema. Patient is 4'10, 293 lbs. Prior Treatments and Tests Gastric sleeve surgery 13 years ago, having horrible acid reflux, may be having another procedure. Treatment Goals Patient/Caregiver Goals Decrease and be able to self- manage her lipedema including use of compression garments. 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 Did do full body self-massage video on You-tube, hasn't watched self-bandaging yet. Has made appt with Katja [facility] 04/28/23. Ready for bandaging today, requests no bandaging in feet PT-OP-F Manual Assessment Start: 03/23/23 14:26 Freq: Status: Active Protocol: Document 03/24/23 10:34 [facility] (Rec: 03/24/23 16:55 [facility] [id number]) Manual Assessments Soft Tissue Assessment Soft Tissue Mobility Assessment Palpation of neva LE's reveals tenderness, multiple nodules throughout LE's. No warmth or redness, no pitting PT-OP-G Mobility & Gait Start: 03/23/23 14:26 Freq: Status: Active Protocol: Document 03/24/23 10:34 SAK (Rec: 03/24/23 16:55 [facility] [id number]) OP Gait Assessment Gait Gait Assistance Required: Independent Assistive Devices Assistive Device None Gait Deviations General Gait Pattern Decreased Stride Length, Decreased Feet Clearance Factors Limiting Gait Function Factors Limiting Gait Function Pain PT-OP-H Neuro Start: 03/23/23 14:26 Freq: Status: Active Protocol: Document 03/24/23 10:34 [facility] (Rec: 03/24/23 16:55 [facility] [id number]) Sensation Evaluation Gross Sensation Gross Sensation WNL PT-OP-K Range of Motion Start: 03/23/23 14:26 Freq: Status: Active Protocol: Document 03/24/23 10:34 SAK (Rec: 03/24/23 16:55 [facility] [id number]) Hip Goniometric Range of Motion Hip neva Hip ROM WFL Yes Comments pain on right all motions Hip ROM Limitations Hip ROM Limitations Pain Knee Goniometric Range of Motion Knee Left Knee ROM WFL No Flexion Active (degrees) 100 Extension Active (degrees) 0 Right Knee ROM WFL No Flexion Active (degrees) 95 Extension Active (degrees) 0 Knee ROM Limitations Knee ROM Limitations Pain,Swelling Ankle and Foot Goniometric Range of Motion Ankle and Foot neva Ankle/Foot ROM WFL Yes PT-OP-M Strength Start: 03/23/23 14:26 Freq: Status: Active Protocol: Document 03/24/23 10:34 [facility] (Rec: 03/24/23 16:55 [facility] [id number]) Hip Strength Hip Manual Muscle Testing Right Flexion (L2) 4- Good- Extension (S1) 3+ Fair+ Abduction 3+ Fair+ Adduction 4- Good- External Rotation 3+ Fair+ Internal Rotation 4- Good- Comments pain all resisted motions Left Flexion (L2) 4+ Good+ Extension (S1) 4- Good- Abduction 4- Good- Adduction 4 Good External Rotation 4- Good- Internal Rotation 4 Good Knee Strength Knee Manual Muscle Testing Right Flexion (S2) 4- Good- Extension (L3) 4- Good- Comments pain right Left Flexion (S2) 4 Good Extension (L3) 4 Good PT-OP-N Lymphedema Start: 03/23/23 14:26 Freq: Status: Active Protocol: Document 03/24/23 10:34 [facility] (Rec: 03/24/23 12:19 [facility] [id number]) Lymphedema Measurements Lower Extremity Circumference Measurements Right Affected MT Heads 23.5 cm Mid-foot 24 cm Medial Malleolus 30.5 cm 10 cm From Medial Malleolus 36.8 cm 20 cm From Medial Malleolus 49.2 cm 30 cm From Medial Malleolus 56.5 cm 40 cm From Medial Malleolus 52.9 cm 50 cm From Medial Malleolus 64.3 cm 60 cm From Medial Malleolus 71 cm 70 cm From Medial Malleolus 81.9 cm 80 cm From Medial Malleolus 93.5 cm Knee Joint 56.9 cm Left Affected MT Heads 25 cm Mid-foot 26.2 cm Medial Malleolus 31.5 cm 10 cm From Medial Malleolus 38.2 cm 20 cm From Medial Malleolus 56.2 cm 30 cm From Medial Malleolus 53.6 cm 40 cm From Medial Malleolus 52.5 cm 50 cm From Medial Malleolus 65 cm 60 cm From Medial Malleolus 73.9 cm 70 cm From Medial Malleolus 84.4 cm 80 cm From Medial Malleolus 97 cm Knee Joint 56 cm - fom ant ankle crease widest hip 166.5 widest [id number] waist 117.8 PT-OP-Q Treatments Start: 03/23/23 14:26 Freq: Status: Active Protocol: Document 03/29/23 12:59 [facility] (Rec: 03/29/23 13:46 [facility] [id number]) Cardio Equipment Recumbent Stepper (Sci-Fit) Duration (Minutes) 5 Resistance 1 Seat Position 12 Other to facilitate lymphatic flow after MLD and bandaging neva LE 's Lymphedema Treatment Manual Lymphatic Drainage Location for neva LE lipedema Duration 35 Lymphedema Wrapping Body Location neva LE's Materials Tricofix size G, Artiflex (4 rolls), Comprilan 8, 10x2, 12x2. Patient long short compression over top for proximal compression upper thighs, hips and abdomen Other Advised to remove and try reapply if swelling occurs in feet, feels to tight or painful. Try to redo if slides down or loosens. Sequential Lymphedema Exercises Comments Reviewed, encouraged use of handout or youTube video Compression Garment Assessment Compression Garment Assessment Details pt brought 3 options proximal compression; mutual agreement best garment with wider waist band, no band distal, appeared good fit Patient Education Compression Garments as above Self Manual Lymphatic Drainage performed and reviewed for home Sequential Lymphedema Exercises reviewed, encouraged handout or video use PT-OP-T Assessment and Plan Start: 03/23/23 14:26 Freq: Status: Active Protocol: Document 03/29/23 12:59 [facility] (Rec: 03/29/23 13:46 [facility] [id number]) Physical Therapy Assessment Goals Three Impairment pain and limited ROM and strength neva knees Impairment limits ability to stand and walk in home and community Short Term Goal (STG) Patient to be instructed in lipedema management as well as land and aquatic-based ther ex for improvement of neva knee ROM and strength for improved function in the home and community. STG Duration 04/24/23 Senior Care Goal (LTG) Patient to demonstrate neva knee ROM WFL and strength at least 4+/5 and be able to stand and walk at least 30 min . LTG Duration 06/23/23 Two Impairment activity tolerance Impairment Lymphedema Life Impact Scale 56% Short Term Goal (STG) Decrease Lymphedema Life Impact Scale to no greater than 40% as measure of improved activity tolerance and quality of life. STG Duration 04/24/23 Transport Technician Goal (LTG) Decrease Lymphedema Life Impact Scale to no greater than 20% as measure of improved activity tolerance and quality of life. LTG Duration 06/23/23 One Impairment lipedema bilateral LE's Short Term Goal (STG) Patient will be instructed in all aspects of lipedema self- care to include skin care, self-massage, self-bandaging/ compression options, and lymphedema exercises. STG Duration 04/24/23 Senior Care Goal (LTG) Decrease patient?s lipedema to a stable level (no increase or decrease greater than 1 cm over the course of 1 week), patient to be independent with all aspects of self care as above for lipedema, and will obtain appropriate compression garment for lipedema management in the home. Consider home pneumatic compression pump for management of lipedema LTG Duration 06/23/23 Assessment Summary Assessment Patient asking appropriate questions, demonstrates good understanding physiology of lipedema, treatment components . Has started self MLD. Demonstrated good understanding of bandaging today but will need furthter review and self-practice. Initiated recumbant elliptical for LE ex after MLD and compression application. Will do further instruction and review of lymphedema exercises . Patient has made appointment with Katja Garsia. Physical Therapy Plan Frequency and Duration Frequency of Treatment 20 visits Duration of treatment (weeks) 12 Plan of Care Start Date 03/24/23 Plan of Care End Date 06/23/23 Therapeutic Interventions Therapeutic Interventions Home Exercise Program, Lymphedema Management,Manual Therapy,Patient/Caregiver Education,Self-Care/Home Management,Therapeutic Activities,Therapeutic Exercises Modalities Vasopneumatic Devices Next Visit Focus/Plan Next Note Type Treatment Note Next Visit Plan Continue CLT all componenets. Show sequential pneumatic pump for possible home use.
--- NOTE | 2023-03-31 11:53 | PT.OTN ---
Current Diagnoses Lymphedema, not elsewhere classified (03/29/23) Physical Therapy Treatment Note PT-OP-A Visit Information Start: 03/23/23 14:26 Freq: Status: Active Protocol: Document 03/29/23 12:59 SAK (Rec: 03/29/23 13:46 [facility] [id number]) Out-Patient Physical Therapy Visit Information Visit Information Visit Type Treatment Note Visit Start Time 13:00 Visit Stop Time 14:25 Total Visit Minutes 85 Visit Number 2 Evaluation Information Evaluation Date 03/24/23 Precautions Precautions neva knee pain, right hip pain PT-OP-B Current Condition Start: 03/23/23 14:26 Freq: Status: Active Protocol: Document 03/29/23 12:59 SAK (Rec: 03/29/23 13:46 SAK [id number]) Current Condition History of Current Condition Onset Date 19 y/o Current Complaints LE swelling, newly diagnosed lipedema History of Current Condition Reports her physician diagnosed lipedema 3 months ago. States she thinks she has had since 19 y/o, got worse with and with time. Reports pain and easy bruising palpable nodular areas neva LE's. Put on hormone replacement therapy 1 year ago which was wrong hormone combination and has contributed to fatigue and decreased activity level, and some weight gain which has made lipedema worse. Recently stumbled and injured knees resulting in even more swelling, can't bend knees very well. Massage therapist helped her decrease the knee swelling some, but returns after massage session. Patient also reports having some right hip pain with no known cause. Has done some online research about lipidema . Has started walking in the local pool and experiences some pain relief. Hasn't tried any compression garments as not sure what to try. No other treatment for her lipedema. Patient is 4'10, 293 lbs. Prior Treatments and Tests Gastric sleeve surgery 13 years ago, having horrible acid reflux, may be having another procedure. Treatment Goals Patient/Caregiver Goals Decrease and be able to self- manage her lipedema including use of compression garments. 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 Did do full body self-massage video on You-tube, hasn't watched self-bandaging yet. Has made appt with Katja [facility] 04/28/23. Ready for bandaging today, requests no bandaging in feet PT-OP-F Manual Assessment Start: 03/23/23 14:26 Freq: Status: Active Protocol: Document 03/24/23 10:34 [facility] (Rec: 03/24/23 16:55 [facility] [id number]) Manual Assessments Soft Tissue Assessment Soft Tissue Mobility Assessment Palpation of neva LE's reveals tenderness, multiple nodules throughout LE's. No warmth or redness, no pitting PT-OP-G Mobility & Gait Start: 03/23/23 14:26 Freq: Status: Active Protocol: Document 03/24/23 10:34 SAK (Rec: 03/24/23 16:55 [facility] [id number]) OP Gait Assessment Gait Gait Assistance Required: Independent Assistive Devices Assistive Device None Gait Deviations General Gait Pattern Decreased Stride Length, Decreased Feet Clearance Factors Limiting Gait Function Factors Limiting Gait Function Pain PT-OP-H Neuro Start: 03/23/23 14:26 Freq: Status: Active Protocol: Document 03/24/23 10:34 [facility] (Rec: 03/24/23 16:55 [facility] [id number]) Sensation Evaluation Gross Sensation Gross Sensation WNL PT-OP-K Range of Motion Start: 03/23/23 14:26 Freq: Status: Active Protocol: Document 03/24/23 10:34 SAK (Rec: 03/24/23 16:55 [facility] [id number]) Hip Goniometric Range of Motion Hip neva Hip ROM WFL Yes Comments pain on right all motions Hip ROM Limitations Hip ROM Limitations Pain Knee Goniometric Range of Motion Knee Left Knee ROM WFL No Flexion Active (degrees) 100 Extension Active (degrees) 0 Right Knee ROM WFL No Flexion Active (degrees) 95 Extension Active (degrees) 0 Knee ROM Limitations Knee ROM Limitations Pain,Swelling Ankle and Foot Goniometric Range of Motion Ankle and Foot neva Ankle/Foot ROM WFL Yes PT-OP-M Strength Start: 03/23/23 14:26 Freq: Status: Active Protocol: Document 03/24/23 10:34 [facility] (Rec: 03/24/23 16:55 [facility] [id number]) Hip Strength Hip Manual Muscle Testing Right Flexion (L2) 4- Good- Extension (S1) 3+ Fair+ Abduction 3+ Fair+ Adduction 4- Good- External Rotation 3+ Fair+ Internal Rotation 4- Good- Comments pain all resisted motions Left Flexion (L2) 4+ Good+ Extension (S1) 4- Good- Abduction 4- Good- Adduction 4 Good External Rotation 4- Good- Internal Rotation 4 Good Knee Strength Knee Manual Muscle Testing Right Flexion (S2) 4- Good- Extension (L3) 4- Good- Comments pain right Left Flexion (S2) 4 Good Extension (L3) 4 Good PT-OP-N Lymphedema Start: 03/23/23 14:26 Freq: Status: Active Protocol: Document 03/24/23 10:34 [facility] (Rec: 03/24/23 12:19 [facility] [id number]) Lymphedema Measurements Lower Extremity Circumference Measurements Right Affected MT Heads 23.5 cm Mid-foot 24 cm Medial Malleolus 30.5 cm 10 cm From Medial Malleolus 36.8 cm 20 cm From Medial Malleolus 49.2 cm 30 cm From Medial Malleolus 56.5 cm 40 cm From Medial Malleolus 52.9 cm 50 cm From Medial Malleolus 64.3 cm 60 cm From Medial Malleolus 71 cm 70 cm From Medial Malleolus 81.9 cm 80 cm From Medial Malleolus 93.5 cm Knee Joint 56.9 cm Left Affected MT Heads 25 cm Mid-foot 26.2 cm Medial Malleolus 31.5 cm 10 cm From Medial Malleolus 38.2 cm 20 cm From Medial Malleolus 56.2 cm 30 cm From Medial Malleolus 53.6 cm 40 cm From Medial Malleolus 52.5 cm 50 cm From Medial Malleolus 65 cm 60 cm From Medial Malleolus 73.9 cm 70 cm From Medial Malleolus 84.4 cm 80 cm From Medial Malleolus 97 cm Knee Joint 56 cm - fom ant ankle crease widest hip 166.5 widest [id number] waist 117.8 PT-OP-Q Treatments Start: 03/23/23 14:26 Freq: Status: Active Protocol: Document 03/29/23 12:59 [facility] (Rec: 03/29/23 13:46 [facility] [id number]) Cardio Equipment Recumbent Stepper (Sci-Fit) Duration (Minutes) 5 Resistance 1 Seat Position 12 Other to facilitate lymphatic flow after MLD and bandaging neva LE 's Lymphedema Treatment Manual Lymphatic Drainage Location for neva LE lipedema Duration 35 Lymphedema Wrapping Body Location neva LE's Materials Tricofix size G, Artiflex (4 rolls), Comprilan 8, 10x2, 12x2. Patient long short compression over top for proximal compression upper thighs, hips and abdomen Other Advised to remove and try reapply if swelling occurs in feet, feels to tight or painful. Try to redo if slides down or loosens. Sequential Lymphedema Exercises Comments Reviewed, encouraged use of handout or youTube video Compression Garment Assessment Compression Garment Assessment Details pt brought 3 options proximal compression; mutual agreement best garment with wider waist band, no band distal, appeared good fit Patient Education Compression Garments as above Self Manual Lymphatic Drainage performed and reviewed for home Sequential Lymphedema Exercises reviewed, encouraged handout or video use PT-OP-T Assessment and Plan Start: 03/23/23 14:26 Freq: Status: Active Protocol: Document 03/29/23 12:59 [facility] (Rec: 03/29/23 13:46 [facility] [id number]) Physical Therapy Assessment Goals Three Impairment pain and limited ROM and strength neva knees Impairment limits ability to stand and walk in home and community Short Term Goal (STG) Patient to be instructed in lipedema management as well as land and aquatic-based ther ex for improvement of neva knee ROM and strength for improved function in the home and community. STG Duration 04/24/23 Custodial Goal (LTG) Patient to demonstrate neva knee ROM WFL and strength at least 4+/5 and be able to stand and walk at least 30 min . LTG Duration 06/23/23 Two Impairment activity tolerance Impairment Lymphedema Life Impact Scale 56% Short Term Goal (STG) Decrease Lymphedema Life Impact Scale to no greater than 40% as measure of improved activity tolerance and quality of life. STG Duration 04/24/23 Deputy Director Goal (LTG) Decrease Lymphedema Life Impact Scale to no greater than 20% as measure of improved activity tolerance and quality of life. LTG Duration 06/23/23 One Impairment lipedema bilateral LE's Short Term Goal (STG) Patient will be instructed in all aspects of lipedema self- care to include skin care, self-massage, self-bandaging/ compression options, and lymphedema exercises. STG Duration 04/24/23 Custodial Goal (LTG) Decrease patient?s lipedema to a stable level (no increase or decrease greater than 1 cm over the course of 1 week), patient to be independent with all aspects of self care as above for lipedema, and will obtain appropriate compression garment for lipedema management in the home. Consider home pneumatic compression pump for management of lipedema LTG Duration 06/23/23 Assessment Summary Assessment Patient asking appropriate questions, demonstrates good understanding physiology of lipedema, treatment components . Has started self MLD. Demonstrated good understanding of bandaging today but will need furthter review and self-practice. Initiated recumbant elliptical for LE ex after MLD and compression application. Will do further instruction and review of lymphedema exercises . Patient has made appointment with Katja Garsia. Physical Therapy Plan Frequency and Duration Frequency of Treatment 20 visits Duration of treatment (weeks) 12 Plan of Care Start Date 03/24/23 Plan of Care End Date 06/23/23 Therapeutic Interventions Therapeutic Interventions Home Exercise Program, Lymphedema Management,Manual Therapy,Patient/Caregiver Education,Self-Care/Home Management,Therapeutic Activities,Therapeutic Exercises Modalities Vasopneumatic Devices Next Visit Focus/Plan Next Note Type Treatment Note Next Visit Plan Continue CLT all componenets. Show sequential pneumatic pump for possible home use.
--- NOTE | 2023-04-01 15:12 | PT.OTN ---
Current Diagnoses Lymphedema, not elsewhere classified (04/01/23) Physical Therapy Treatment Note PT-OP-A Visit Information Start: 03/23/23 14:26 Freq: Status: Active Protocol: Document 04/01/23 10:36 SAK (Rec: 04/01/23 10:47 SAK [id number]) Out-Patient Physical Therapy Visit Information Visit Information Visit Type Treatment Note Visit Start Time 10:36 Visit Stop Time 12:02 Total Visit Minutes 86 Visit Number 3 Evaluation Information Evaluation Date 03/24/23 Precautions Precautions neva knee pain, right hip pain PT-OP-B Current Condition Start: 03/23/23 14:26 Freq: Status: Active Protocol: Document 04/01/23 10:36 SAK (Rec: 04/01/23 10:47 SAK [id number]) Current Condition History of Current Condition Onset Date 19 y/o Current Complaints LE swelling, newly diagnosed lipedema History of Current Condition Reports her physician diagnosed lipedema 3 months ago. States she thinks she has had since 19 y/o, got worse with and with time. Reports pain and easy bruising palpable nodular areas neva LE's. Put on hormone replacement therapy 1 year ago which was wrong hormone combination and has contributed to fatigue and decreased activity level, and some weight gain which has made lipedema worse. Recently stumbled and injured knees resulting in even more swelling, can't bend knees very well. Massage therapist helped her decrease the knee swelling some, but returns after massage session. Patient also reports having some right hip pain with no known cause. Has done some online research about lipidema . Has started walking in the local pool and experiences some pain relief. Hasn't tried any compression garments as not sure what to try. No other treatment for her lipedema. Patient is 4'10, 293 lbs. Prior Treatments and Tests Gastric sleeve surgery 13 years ago, having horrible acid reflux, may be having another procedure. Treatment Goals Patient/Caregiver Goals Decrease and be able to self- manage her lipedema including use of compression garments. 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 Thinks bandaging helpful. Reports after having compression on without support during pool exercises hips were more painful felt need for support. Expressed she is trying to be open to the possibility of lipedema surgery as well as option due to her peristent pain in hips and decreased mobility. PT-OP-F Manual Assessment Start: 03/23/23 14:26 Freq: Status: Active Protocol: Document 03/24/23 10:34 SAK (Rec: 03/24/23 16:55 [facility] [id number]) Manual Assessments Soft Tissue Assessment Soft Tissue Mobility Assessment Palpation of neva LE's reveals tenderness, multiple nodules throughout LE's. No warmth or redness, no pitting PT-OP-G Mobility & Gait Start: 03/23/23 14:26 Freq: Status: Active Protocol: Document 03/24/23 10:34 SAK (Rec: 03/24/23 16:55 [facility] [id number]) OP Gait Assessment Gait Gait Assistance Required: Independent Assistive Devices Assistive Device None Gait Deviations General Gait Pattern Decreased Stride Length, Decreased Feet Clearance Factors Limiting Gait Function Factors Limiting Gait Function Pain PT-OP-H Neuro Start: 03/23/23 14:26 Freq: Status: Active Protocol: Document 03/24/23 10:34 SAK (Rec: 03/24/23 16:55 [facility] [id number]) Sensation Evaluation Gross Sensation Gross Sensation WNL PT-OP-K Range of Motion Start: 03/23/23 14:26 Freq: Status: Active Protocol: Document 03/24/23 10:34 SAK (Rec: 03/24/23 16:55 [facility] [id number]) Hip Goniometric Range of Motion Hip neva Hip ROM WFL Yes Comments pain on right all motions Hip ROM Limitations Hip ROM Limitations Pain Knee Goniometric Range of Motion Knee Left Knee ROM WFL No Flexion Active (degrees) 100 Extension Active (degrees) 0 Right Knee ROM WFL No Flexion Active (degrees) 95 Extension Active (degrees) 0 Knee ROM Limitations Knee ROM Limitations Pain,Swelling Ankle and Foot Goniometric Range of Motion Ankle and Foot neva Ankle/Foot ROM WFL Yes PT-OP-M Strength Start: 03/23/23 14:26 Freq: Status: Active Protocol: Document 03/24/23 10:34 [facility] (Rec: 03/24/23 16:55 [facility] [id number]) Hip Strength Hip Manual Muscle Testing Right Flexion (L2) 4- Good- Extension (S1) 3+ Fair+ Abduction 3+ Fair+ Adduction 4- Good- External Rotation 3+ Fair+ Internal Rotation 4- Good- Comments pain all resisted motions Left Flexion (L2) 4+ Good+ Extension (S1) 4- Good- Abduction 4- Good- Adduction 4 Good External Rotation 4- Good- Internal Rotation 4 Good Knee Strength Knee Manual Muscle Testing Right Flexion (S2) 4- Good- Extension (L3) 4- Good- Comments pain right Left Flexion (S2) 4 Good Extension (L3) 4 Good PT-OP-N Lymphedema Start: 03/23/23 14:26 Freq: Status: Active Protocol: Document 04/01/23 10:36 [facility] (Rec: 04/01/23 11:38 [facility] [id number]) Lymphedema Measurements Lower Extremity Circumference Measurements Right Affected MT Heads 24.3 cm Mid-foot 23.9 cm Medial Malleolus 31.2 cm 10 cm From Medial Malleolus 37.1 cm 20 cm From Medial Malleolus 48.2 cm 30 cm From Medial Malleolus 54.3 cm 40 cm From Medial Malleolus 51.3 cm 50 cm From Medial Malleolus 58.8 cm 60 cm From Medial Malleolus 70.4 cm 70 cm From Medial Malleolus 80 cm 80 cm From Medial Malleolus 95 cm Knee Joint 54.5 cm Left Affected MT Heads 25 cm Mid-foot 26.6 cm Medial Malleolus 31 cm 10 cm From Medial Malleolus 36.6 cm 20 cm From Medial Malleolus 47.8 cm 30 cm From Medial Malleolus 55.8 cm 40 cm From Medial Malleolus 53.5 cm 50 cm From Medial Malleolus 64.8 cm 60 cm From Medial Malleolus 72.7 cm 70 cm From Medial Malleolus 80.2 cm 80 cm From Medial Malleolus 93.9 cm Knee Joint 55.9 cm PT-OP-Q Treatments Start: 03/23/23 14:26 Freq: Status: Active Protocol: Document 04/01/23 10:36 [facility] (Rec: 04/01/23 15:12 [facility] [id number]) Therapeutic Exercises Standing Exercises hip and knee ROM Standing Exercise Name march, hamstring curl Comments to facilitate lymphatic flow after MLD and bandaging. Lymphedema Treatment Manual Lymphatic Drainage Location for neva LE lipedema Duration 35 Lymphedema Wrapping Body Location neva LE's Materials Tricofix size G, Artiflex (4 rolls), Comprilan 8, 10x2, 12x2. Patient long short compression over top for proximal compression upper thighs, hips and abdomen Other Advised to remove and try reapply if swelling occurs in feet, feels to tight or painful. Try to redo if slides down or loosens. Sequential Lymphedema Exercises Location as above, standing today Patient Education Other reviewed self-bandaging technique, problem solving PT-OP-T Assessment and Plan Start: 03/23/23 14:26 Freq: Status: Active Protocol: Document 04/01/23 10:36 [facility] (Rec: 04/01/23 15:12 [facility] [id number]) Physical Therapy Assessment Goals Three Impairment pain and limited ROM and strength neva knees Impairment limits ability to stand and walk in home and community Short Term Goal (STG) Patient to be instructed in lipedema management as well as land and aquatic-based ther ex for improvement of neva knee ROM and strength for improved function in the home and community. STG Duration 04/24/23 Jail Goal (LTG) Patient to demonstrate neva knee ROM WFL and strength at least 4+/5 and be able to stand and walk at least 30 min . LTG Duration 06/23/23 Two Impairment activity tolerance Impairment Lymphedema Life Impact Scale 56% Short Term Goal (STG) Decrease Lymphedema Life Impact Scale to no greater than 40% as measure of improved activity tolerance and quality of life. STG Duration 04/24/23 Table Cut Off Saw Operator Goal (LTG) Decrease Lymphedema Life Impact Scale to no greater than 20% as measure of improved activity tolerance and quality of life. LTG Duration 06/23/23 One Impairment lipedema bilateral LE's Short Term Goal (STG) Patient will be instructed in all aspects of lipedema self- care to include skin care, self-massage, self-bandaging/ compression options, and lymphedema exercises. STG Duration 04/24/23 Table Cut Off Saw Operator Goal (LTG) Decrease patient?s lipedema to a stable level (no increase or decrease greater than 1 cm over the course of 1 week), patient to be independent with all aspects of self care as above for lipedema, and will obtain appropriate compression garment for lipedema management in the home. Consider home pneumatic compression pump for management of lipedema LTG Duration 06/23/23 Assessment Summary Assessment Patient has been highly compliant to all aspects of lymphedema care. Decreased circumferential measurements whole right leg, distal and proximal left LE (needs inc pressure at knee; technique reviewed). Showed sequential pneumatic pump as possible addition to self-care in the home. Physical Therapy Plan Frequency and Duration Frequency of Treatment 20 visits Duration of treatment (weeks) 12 Plan of Care Start Date 03/24/23 Plan of Care End Date 06/23/23 Therapeutic Interventions Therapeutic Interventions Home Exercise Program, Lymphedema Management,Manual Therapy,Patient/Caregiver Education,Self-Care/Home Management,Therapeutic Activities,Therapeutic Exercises Modalities Vasopneumatic Devices Next Visit Focus/Plan Next Note Type Treatment Note Next Visit Plan Continue CLT all componenets.
--- NOTE | 2023-04-05 12:07 | PT.OTN ---
Current Diagnoses Lymphedema, not elsewhere classified (04/05/23) Physical Therapy Treatment Note PT-OP-A Visit Information Start: 03/23/23 14:26 Freq: Status: Active Protocol: Document 04/05/23 10:26 SAK (Rec: 04/05/23 12:07 [facility] [id number]) Out-Patient Physical Therapy Visit Information Visit Information Visit Type Treatment Note Visit Start Time 10:26 Visit Stop Time 12:00 Total Visit Minutes 90 Visit Number 4 Evaluation Information Evaluation Date 03/24/23 Precautions Precautions neva knee pain, right hip pain PT-OP-B Current Condition Start: 03/23/23 14:26 Freq: Status: Active Protocol: Document 04/05/23 10:26 SAK (Rec: 04/05/23 12:07 SAK [id number]) Current Condition History of Current Condition Onset Date 19 y/o Current Complaints LE swelling, newly diagnosed lipedema History of Current Condition Reports her physician diagnosed lipedema 3 months ago. States she thinks she has had since 19 y/o, got worse with and with time. Reports pain and easy bruising palpable nodular areas neva LE's. Put on hormone replacement therapy 1 year ago which was wrong hormone combination and has contributed to fatigue and decreased activity level, and some weight gain which has made lipedema worse. Recently stumbled and injured knees resulting in even more swelling, can't bend knees very well. Massage therapist helped her decrease the knee swelling some, but returns after massage session. Patient also reports having some right hip pain with no known cause. Has done some online research about lipidema . Has started walking in the local pool and experiences some pain relief. Hasn't tried any compression garments as not sure what to try. No other treatment for her lipedema. Patient is 4'10, 293 lbs. Prior Treatments and Tests Gastric sleeve surgery 13 years ago, having horrible acid reflux, may be having another procedure. Treatment Goals Patient/Caregiver Goals Decrease and be able to self- manage her lipedema including use of compression garments. 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 Wrapping gets a litle simpler each time. Had bandages off for about 6 hrs yesterday, could really tell the difference with inc edema and pain hips and right knee over the course of that 6 hrs. Hadn't had off for more than 1 hr since starting PT, can really see difference compression makes. Challenging to fit [place] and bandaging daily. PT-OP-F Manual Assessment Start: 03/23/23 14:26 Freq: Status: Active Protocol: Document 03/24/23 10:34 [facility] (Rec: 03/24/23 16:55 [facility] [id number]) Manual Assessments Soft Tissue Assessment Soft Tissue Mobility Assessment Palpation of neva LE's reveals tenderness, multiple nodules throughout LE's. No warmth or redness, no pitting PT-OP-G Mobility & Gait Start: 03/23/23 14:26 Freq: Status: Active Protocol: Document 03/24/23 10:34 SAK (Rec: 03/24/23 16:55 [facility] [id number]) OP Gait Assessment Gait Gait Assistance Required: Independent Assistive Devices Assistive Device None Gait Deviations General Gait Pattern Decreased Stride Length, Decreased Feet Clearance Factors Limiting Gait Function Factors Limiting Gait Function Pain PT-OP-H Neuro Start: 03/23/23 14:26 Freq: Status: Active Protocol: Document 03/24/23 10:34 SAK (Rec: 03/24/23 16:55 [facility] [id number]) Sensation Evaluation Gross Sensation Gross Sensation WNL PT-OP-K Range of Motion Start: 03/23/23 14:26 Freq: Status: Active Protocol: Document 03/24/23 10:34 SAK (Rec: 03/24/23 16:55 [facility] [id number]) Hip Goniometric Range of Motion Hip neva Hip ROM WFL Yes Comments pain on right all motions Hip ROM Limitations Hip ROM Limitations Pain Knee Goniometric Range of Motion Knee Left Knee ROM WFL No Flexion Active (degrees) 100 Extension Active (degrees) 0 Right Knee ROM WFL No Flexion Active (degrees) 95 Extension Active (degrees) 0 Knee ROM Limitations Knee ROM Limitations Pain,Swelling Ankle and Foot Goniometric Range of Motion Ankle and Foot neva Ankle/Foot ROM WFL Yes PT-OP-M Strength Start: 03/23/23 14:26 Freq: Status: Active Protocol: Document 03/24/23 10:34 [facility] (Rec: 03/24/23 16:55 [facility] [id number]) Hip Strength Hip Manual Muscle Testing Right Flexion (L2) 4- Good- Extension (S1) 3+ Fair+ Abduction 3+ Fair+ Adduction 4- Good- External Rotation 3+ Fair+ Internal Rotation 4- Good- Comments pain all resisted motions Left Flexion (L2) 4+ Good+ Extension (S1) 4- Good- Abduction 4- Good- Adduction 4 Good External Rotation 4- Good- Internal Rotation 4 Good Knee Strength Knee Manual Muscle Testing Right Flexion (S2) 4- Good- Extension (L3) 4- Good- Comments pain right Left Flexion (S2) 4 Good Extension (L3) 4 Good PT-OP-N Lymphedema Start: 03/23/23 14:26 Freq: Status: Active Protocol: Document 04/05/23 10:26 [facility] (Rec: 04/05/23 12:07 [facility] [id number]) Lymphedema Measurements Lower Extremity Circumference Measurements Right Affected - measure next sessionmeasure onext session PT-OP-Q Treatments Start: 03/23/23 14:26 Freq: Status: Active Protocol: Document 04/05/23 10:26 [facility] (Rec: 04/05/23 12:07 [facility] [id number]) Cardio Equipment Recumbent Stepper (Sci-Fit) Duration (Minutes) 5 Resistance 1 Seat Position 12 Other to facilitate lymphatic flow after MLD and bandaging neva LE 's Self-Care/Home Management Treatment Education Other Education can do supine bicycle exercise . Stressed low impact ex; use ex bike at fitness center if able to go, plan schedule for aquatic exercise when can bandage right after. Lymphedema Treatment Manual Lymphatic Drainage Location for neva LE lipedema Duration 55 Lymphedema Wrapping Body Location neva LE's Materials Tricofix size G, Artiflex (4 rolls), Comprilan 8, 10x2, 12x2. Patient long short compression over top for proximal compression upper thighs, hips and abdomen. Herringbone pattern just below knee and above knee to . Will do further proximal bandaging next session. PT-OP-T Assessment and Plan Start: 03/23/23 14:26 Freq: Status: Active Protocol: Document 04/05/23 10:26 [facility] (Rec: 04/05/23 12:07 [facility] [id number]) Physical Therapy Assessment Goals Three Impairment pain and limited ROM and strength neva knees Impairment limits ability to stand and walk in home and community Short Term Goal (STG) Patient to be instructed in lipedema management as well as land and aquatic-based ther ex for improvement of neva knee ROM and strength for improved function in the home and community. STG Duration 04/24/23 Jail Goal (LTG) Patient to demonstrate neva knee ROM WFL and strength at least 4+/5 and be able to stand and walk at least 30 min . LTG Duration 06/23/23 Two Impairment activity tolerance Impairment Lymphedema Life Impact Scale 56% Short Term Goal (STG) Decrease Lymphedema Life Impact Scale to no greater than 40% as measure of improved activity tolerance and quality of life. STG Duration 04/24/23 Jail Goal (LTG) Decrease Lymphedema Life Impact Scale to no greater than 20% as measure of improved activity tolerance and quality of life. LTG Duration 06/23/23 One Impairment lipedema bilateral LE's Short Term Goal (STG) Patient will be instructed in all aspects of lipedema self- care to include skin care, self-massage, self-bandaging/ compression options, and lymphedema exercises. STG Duration 04/24/23 Jail Goal (LTG) Decrease patient?s lipedema to a stable level (no increase or decrease greater than 1 cm over the course of 1 week), patient to be independent with all aspects of self care as above for lipedema, and will obtain appropriate compression garment for lipedema management in the home. Consider home pneumatic compression pump for management of lipedema LTG Duration 06/23/23 Assessment Summary Assessment No measurements today, patient with dec compliance with compression yesterday but acknowledging how quickly symptoms of pain and increased swelling occurred with break in compression, was away from home. Reports committed to compliance as sees and feels the benefit of compression. Physical Therapy Plan Frequency and Duration Frequency of Treatment 20 visits Duration of treatment (weeks) 12 Plan of Care Start Date 03/24/23 Plan of Care End Date 06/23/23 Therapeutic Interventions Therapeutic Interventions Home Exercise Program, Lymphedema Management,Manual Therapy,Patient/Caregiver Education,Self-Care/Home Management,Therapeutic Activities,Therapeutic Exercises Modalities Vasopneumatic Devices Next Visit Focus/Plan Next Note Type Treatment Note Next Visit Plan circumferential measurements, MLD, skin care, compression bandaging, ther ex.
--- NOTE | 2023-04-07 12:13 | PT.OTN ---
Current Diagnoses Lymphedema, not elsewhere classified (04/07/23) Physical Therapy Treatment Note PT-OP-A Visit Information Start: 03/23/23 14:26 Freq: Status: Active Protocol: Document 04/07/23 10:20 SAK (Rec: 04/07/23 10:54 [facility] [id number]) Out-Patient Physical Therapy Visit Information Visit Information Visit Type Treatment Note Visit Start Time 10:20 Visit Stop Time 11:55 Total Visit Minutes 95 Visit Number 5 Evaluation Information Evaluation Date 03/24/23 Precautions Precautions neva knee pain, right hip pain PT-OP-B Current Condition Start: 03/23/23 14:26 Freq: Status: Active Protocol: Document 04/07/23 10:20 SAK (Rec: 04/07/23 10:54 [facility] [id number]) Current Condition History of Current Condition Onset Date 19 y/o Current Complaints LE swelling, newly diagnosed lipedema History of Current Condition Reports her physician diagnosed lipedema 3 months ago. States she thinks she has had since 19 y/o, got worse with and with time. Reports pain and easy bruising palpable nodular areas neva LE's. Put on hormone replacement therapy 1 year ago which was wrong hormone combination and has contributed to fatigue and decreased activity level, and some weight gain which has made lipedema worse. Recently stumbled and injured knees resulting in even more swelling, can't bend knees very well. Massage therapist helped her decrease the knee swelling some, but returns after massage session. Patient also reports having some right hip pain with no known cause. Has done some online research about lipidema . Has started walking in the local pool and experiences some pain relief. Hasn't tried any compression garments as not sure what to try. No other treatment for her lipedema. Patient is 4'10, 293 lbs. Prior Treatments and Tests Gastric sleeve surgery 13 years ago, having horrible acid reflux, may be having another procedure. Treatment Goals Patient/Caregiver Goals Decrease and be able to self- manage her lipedema including use of compression garments. PT-OP-C Subjective Start: 03/23/23 14:26 Freq: Status: Active Protocol: Document 04/07/23 10:20 SAK (Rec: 04/07/23 10:54 [facility] [id number]) OP-PT Subjective Patient Comments Patient Comments Reports hardest day so far, hasn't received new compression bandages she ordered and current ones don't have stretch left, need to be washed. Has been uncomfortable and some pain due to bandages cutting in. PT-OP-F Manual Assessment Start: 03/23/23 14:26 Freq: Status: Active Protocol: Document 03/24/23 10:34 SAK (Rec: 03/24/23 16:55 [facility] [id number]) Manual Assessments Soft Tissue Assessment Soft Tissue Mobility Assessment Palpation of neva LE's reveals tenderness, multiple nodules throughout LE's. No warmth or redness, no pitting PT-OP-G Mobility & Gait Start: 03/23/23 14:26 Freq: Status: Active Protocol: Document 03/24/23 10:34 SAK (Rec: 03/24/23 16:55 [facility] [id number]) OP Gait Assessment Gait Gait Assistance Required: Independent Assistive Devices Assistive Device None Gait Deviations General Gait Pattern Decreased Stride Length, Decreased Feet Clearance Factors Limiting Gait Function Factors Limiting Gait Function Pain PT-OP-H Neuro Start: 03/23/23 14:26 Freq: Status: Active Protocol: Document 03/24/23 10:34 SAK (Rec: 03/24/23 16:55 [facility] [id number]) Sensation Evaluation Gross Sensation Gross Sensation WNL PT-OP-K Range of Motion Start: 03/23/23 14:26 Freq: Status: Active Protocol: Document 03/24/23 10:34 SAK (Rec: 03/24/23 16:55 [facility] [id number]) Hip Goniometric Range of Motion Hip neva Hip ROM WFL Yes Comments pain on right all motions Hip ROM Limitations Hip ROM Limitations Pain Knee Goniometric Range of Motion Knee Left Knee ROM WFL No Flexion Active (degrees) 100 Extension Active (degrees) 0 Right Knee ROM WFL No Flexion Active (degrees) 95 Extension Active (degrees) 0 Knee ROM Limitations Knee ROM Limitations Pain,Swelling Ankle and Foot Goniometric Range of Motion Ankle and Foot neva Ankle/Foot ROM WFL Yes PT-OP-M Strength Start: 03/23/23 14:26 Freq: Status: Active Protocol: Document 03/24/23 10:34 SAK (Rec: 03/24/23 16:55 [facility] [id number]) Hip Strength Hip Manual Muscle Testing Right Flexion (L2) 4- Good- Extension (S1) 3+ Fair+ Abduction 3+ Fair+ Adduction 4- Good- External Rotation 3+ Fair+ Internal Rotation 4- Good- Comments pain all resisted motions Left Flexion (L2) 4+ Good+ Extension (S1) 4- Good- Abduction 4- Good- Adduction 4 Good External Rotation 4- Good- Internal Rotation 4 Good Knee Strength Knee Manual Muscle Testing Right Flexion (S2) 4- Good- Extension (L3) 4- Good- Comments pain right Left Flexion (S2) 4 Good Extension (L3) 4 Good PT-OP-N Lymphedema Start: 03/23/23 14:26 Freq: Status: Active Protocol: Document 04/07/23 10:20 [facility] (Rec: 04/07/23 10:54 [facility] [id number]) Lymphedema Measurements Lower Extremity Circumference Measurements Right Affected MT Heads 25 cm Mid-foot 24.5 cm Medial Malleolus 31.1 cm 10 cm From Medial Malleolus 35.5 cm 20 cm From Medial Malleolus 47.6 cm 30 cm From Medial Malleolus 53.8 cm 40 cm From Medial Malleolus 51.5 cm 50 cm From Medial Malleolus 62.9 cm 60 cm From Medial Malleolus 71.7 cm 70 cm From Medial Malleolus 80.4 cm 80 cm From Medial Malleolus 95.4 cm Knee Joint 55 cm Left Affected MT Heads 25 cm Mid-foot 26.7 cm Medial Malleolus 30.8 cm 10 cm From Medial Malleolus 35.3 cm 20 cm From Medial Malleolus 47.9 cm 30 cm From Medial Malleolus 55.8 cm 40 cm From Medial Malleolus 53.4 cm 50 cm From Medial Malleolus 64.2 cm 60 cm From Medial Malleolus 73.4 cm 70 cm From Medial Malleolus 81.2 cm 80 cm From Medial Malleolus 97.4 cm Knee Joint 55.2 cm - fom ant ankle crease widest hip 165,5 widest .5 waist 119.0 PT-OP-Q Treatments Start: 03/23/23 14:26 Freq: Status: Active Protocol: Document 04/07/23 10:20 [facility] (Rec: 04/07/23 10:54 [facility] [id number]) Cardio Equipment Recumbent Stepper (Sci-Fit) Duration (Minutes) 10 Resistance 1 Seat Position 12 Other to facilitate lymphatic flow after MLD and bandaging neva LE 's Lymphedema Treatment Manual Lymphatic Drainage Location for neva LE lipedema Duration 55 Lymphedema Wrapping Body Location neva LE's Materials Tricofix size G, Artiflex (4 rolls), Comprilan 8, 10x2, 12x2. Patient long short compression over top for proximal compression upper thighs, hips and abdomen. Isoband thighs and abdomen. Herringbone pattern just below knee and above knee to . Will do further proximal bandaging next session. Sequential Lymphedema Exercises Comments isometric glut sets, abdominals, crunches PT-OP-T Assessment and Plan Start: 03/23/23 14:26 Freq: Status: Active Protocol: Document 04/07/23 10:20 [facility] (Rec: 04/07/23 10:54 [facility] [id number]) Physical Therapy Assessment Goals Three Impairment pain and limited ROM and strength neva knees Impairment limits ability to stand and walk in home and community Short Term Goal (STG) Patient to be instructed in lipedema management as well as land and aquatic-based ther ex for improvement of neva knee ROM and strength for improved function in the home and community. STG Duration 04/24/23 Retirement Goal (LTG) Patient to demonstrate neva knee ROM WFL and strength at least 4+/5 and be able to stand and walk at least 30 min . LTG Duration 06/23/23 Two Impairment activity tolerance Impairment Lymphedema Life Impact Scale 56% Short Term Goal (STG) Decrease Lymphedema Life Impact Scale to no greater than 40% as measure of improved activity tolerance and quality of life. STG Duration 04/24/23 Retirement Goal (LTG) Decrease Lymphedema Life Impact Scale to no greater than 20% as measure of improved activity tolerance and quality of life. LTG Duration 06/23/23 One Impairment lipedema bilateral LE's Short Term Goal (STG) Patient will be instructed in all aspects of lipedema self- care to include skin care, self-massage, self-bandaging/ compression options, and lymphedema exercises. STG Duration 04/24/23 [employer] Mechan[employer] Goal (LTG) Decrease patient?s lipedema to a stable level (no increase or decrease greater than 1 cm over the course of 1 week), patient to be independent with all aspects of self care as above for lipedema, and will obtain appropriate compression garment for lipedema management in the home. Consider home pneumatic compression pump for management of lipedema LTG Duration 06/23/23 Assessment Summary Assessment Decreased circumferential measurements neva lower legs, increased neva upper legs. Isoband trial proximal hips and around waist for increased proximal compression. Training of patient for self bandaging with Isoband. Increased Si-Fit time to 10 min to facil lymphatic flow. Trial use pneumatic sequential pump neva LE's with PT doing MLD proximal with good tolerance. Feel patient would benefit from use of pump for home use. Physical Therapy Plan Frequency and Duration Frequency of Treatment 20 visits Duration of treatment (weeks) 12 Plan of Care Start Date 03/24/23 Plan of Care End Date 06/23/23 Therapeutic Interventions Therapeutic Interventions Home Exercise Program, Lymphedema Management,Manual Therapy,Patient/Caregiver Education,Self-Care/Home Management,Therapeutic Activities,Therapeutic Exercises Modalities Vasopneumatic Devices Next Visit Focus/Plan Next Note Type Treatment Note Next Visit Plan Continue CLT.
--- NOTE | 2023-04-12 14:22 | PT.OTN ---
Current Diagnoses Lymphedema, not elsewhere classified (04/12/23) Physical Therapy Treatment Note PT-OP-A Visit Information Start: 03/23/23 14:26 Freq: Status: Active Protocol: Document 04/12/23 10:13 SAK (Rec: 04/12/23 11:21 [facility] [id number]) Out-Patient Physical Therapy Visit Information Visit Information Visit Type Treatment Note Visit Start Time 10:20 Visit Stop Time 11:55 Total Visit Minutes 95 Visit Number 6 Evaluation Information Evaluation Date 03/24/23 Precautions Precautions neva knee pain, right hip pain PT-OP-B Current Condition Start: 03/23/23 14:26 Freq: Status: Active Protocol: Document 04/12/23 10:13 SAK (Rec: 04/12/23 11:21 SAK [id number]) Current Condition History of Current Condition Onset Date 19 y/o Current Complaints LE swelling, newly diagnosed lipedema History of Current Condition Reports her physician diagnosed lipedema 3 months ago. States she thinks she has had since 19 y/o, got worse with and with time. Reports pain and easy bruising palpable nodular areas neva LE's. Put on hormone replacement therapy 1 year ago which was wrong hormone combination and has contributed to fatigue and decreased activity level, and some weight gain which has made lipedema worse. Recently stumbled and injured knees resulting in even more swelling, can't bend knees very well. Massage therapist helped her decrease the knee swelling some, but returns after massage session. Patient also reports having some right hip pain with no known cause. Has done some online research about lipidema . Has started walking in the local pool and experiences some pain relief. Hasn't tried any compression garments as not sure what to try. No other treatment for her lipedema. Patient is 4'10, 293 lbs. Prior Treatments and Tests Gastric sleeve surgery 13 years ago, having horrible acid reflux, may be having another procedure. Treatment Goals Patient/Caregiver Goals Decrease and be able to self- manage her lipedema including use of compression garments. Wsn't able to get to gym because closed due to weather. Realized her estrogen patch fell off and she had been feeling like she was in a lipedema flare, not sure how long it was off. Having pain in legs from walking on Wednesday, even with the support of bandages PT-OP-C Subjective Start: 03/23/23 14:26 Freq: Status: Active Protocol: Document 04/12/23 10:13 SAK (Rec: 04/12/23 11:21 SAK [id number]) OP-PT Subjective Patient Comments Patient Comments Isoband slid down off slick undergarment, didn't work. Called about garment fitting, scheduled for this Wednesday after PT. Continues with skin care, lymphedema massage, exercise including in the pool as able (was closed due to weather last week), and bandaging. Challenging to continue bandaging but she still is doing daily, adjusting as needed. Patient Reported Progress Improving PT-OP-F Manual Assessment Start: 03/23/23 14:26 Freq: Status: Active Protocol: Document 03/24/23 10:34 SAK (Rec: 03/24/23 16:55 [facility] [id number]) Manual Assessments Soft Tissue Assessment Soft Tissue Mobility Assessment Palpation of neva LE's reveals tenderness, multiple nodules throughout LE's. No warmth or redness, no pitting PT-OP-G Mobility & Gait Start: 03/23/23 14:26 Freq: Status: Active Protocol: Document 03/24/23 10:34 SAK (Rec: 03/24/23 16:55 [facility] [id number]) OP Gait Assessment Gait Gait Assistance Required: Independent Assistive Devices Assistive Device None Gait Deviations General Gait Pattern Decreased Stride Length, Decreased Feet Clearance Factors Limiting Gait Function Factors Limiting Gait Function Pain PT-OP-H Neuro Start: 03/23/23 14:26 Freq: Status: Active Protocol: Document 03/24/23 10:34 SAK (Rec: 03/24/23 16:55 [facility] [id number]) Sensation Evaluation Gross Sensation Gross Sensation WNL PT-OP-K Range of Motion Start: 03/23/23 14:26 Freq: Status: Active Protocol: Document 03/24/23 10:34 SAK (Rec: 03/24/23 16:55 [facility] [id number]) Hip Goniometric Range of Motion Hip neva Hip ROM WFL Yes Comments pain on right all motions Hip ROM Limitations Hip ROM Limitations Pain Knee Goniometric Range of Motion Knee Left Knee ROM WFL No Flexion Active (degrees) 100 Extension Active (degrees) 0 Right Knee ROM WFL No Flexion Active (degrees) 95 Extension Active (degrees) 0 Knee ROM Limitations Knee ROM Limitations Pain,Swelling Ankle and Foot Goniometric Range of Motion Ankle and Foot neva Ankle/Foot ROM WFL Yes PT-OP-M Strength Start: 03/23/23 14:26 Freq: Status: Active Protocol: Document 03/24/23 10:34 [facility] (Rec: 03/24/23 16:55 [facility] [id number]) Hip Strength Hip Manual Muscle Testing Right Flexion (L2) 4- Good- Extension (S1) 3+ Fair+ Abduction 3+ Fair+ Adduction 4- Good- External Rotation 3+ Fair+ Internal Rotation 4- Good- Comments pain all resisted motions Left Flexion (L2) 4+ Good+ Extension (S1) 4- Good- Abduction 4- Good- Adduction 4 Good External Rotation 4- Good- Internal Rotation 4 Good Knee Strength Knee Manual Muscle Testing Right Flexion (S2) 4- Good- Extension (L3) 4- Good- Comments pain right Left Flexion (S2) 4 Good Extension (L3) 4 Good PT-OP-N Lymphedema Start: 03/23/23 14:26 Freq: Status: Active Protocol: Document 04/12/23 10:13 [facility] (Rec: 04/12/23 11:21 [facility] [id number]) Lymphedema Measurements Lower Extremity Circumference Measurements Right Affected MT Heads 24.5 cm Mid-foot 24.3 cm Medial Malleolus 31.2 cm 10 cm From Medial Malleolus 33.8 cm 20 cm From Medial Malleolus 48 cm 30 cm From Medial Malleolus 53.8 cm 40 cm From Medial Malleolus 52.4 cm 50 cm From Medial Malleolus 60.9 cm 60 cm From Medial Malleolus 69.4 cm 70 cm From Medial Malleolus 78.9 cm 80 cm From Medial Malleolus 93.9 cm Knee Joint 54.5 cm Left Affected MT Heads 24.7 cm Mid-foot 27 cm Medial Malleolus 30.7 cm 10 cm From Medial Malleolus 35.9 cm 20 cm From Medial Malleolus 47.3 cm 30 cm From Medial Malleolus 55.5 cm 40 cm From Medial Malleolus 52.4 cm 50 cm From Medial Malleolus 63.8 cm 60 cm From Medial Malleolus 73.1 cm 70 cm From Medial Malleolus 81.2 cm 80 cm From Medial Malleolus 97.1 cm Knee Joint 55.1 cm - from ant ankle crease: widest hip 165.5 cm widest buttock: 124.5 cm PT-OP-Q Treatments Start: 03/23/23 14:26 Freq: Status: Active Protocol: Document 04/12/23 10:13 [facility] (Rec: 04/12/23 11:21 [facility] [id number]) Lymphedema Treatment Manual Lymphatic Drainage Location for neva LE lipedema Duration 55 Lymphedema Wrapping Body Location neva LE's Materials Tricofix size G, Artiflex (4 rolls), Comprilan 8, 10x2, 12x2. Patient long short compression over top for proximal compression upper thighs, hips and abdomen. Isoband thighs and abdomen. Herringbone pattern just below knee and above knee to . Will do further proximal bandaging next session. Sequential Lymphedema Exercises Comments isometric glut sets, abdominals, crunches PT-OP-T Assessment and Plan Start: 03/23/23 14:26 Freq: Status: Active Protocol: Document 04/12/23 10:13 [facility]ODY (Rec: 04/12/23 11:21 [facility] [id number]) Physical Therapy Assessment Goals Three Impairment pain and limited ROM and strength neva knees Impairment limits ability to stand and walk in home and community Short Term Goal (STG) Patient to be instructed in lipedema management as well as land and aquatic-based ther ex for improvement of neva knee ROM and strength for improved function in the home and community. STG Duration 04/24/23 Longterm Goal (LTG) Patient to demonstrate neva knee ROM WFL and strength at least 4+/5 and be able to stand and walk at least 30 min . LTG Duration 06/23/23 Two Impairment activity tolerance Impairment Lymphedema Life Impact Scale 56% Short Term Goal (STG) Decrease Lymphedema Life Impact Scale to no greater than 40% as measure of improved activity tolerance and quality of life. STG Duration 04/24/23 Steward/Stewardess Night Goal (LTG) Decrease Lymphedema Life Impact Scale to no greater than 20% as measure of improved activity tolerance and quality of life. LTG Duration 06/23/23 One Impairment lipedema bilateral LE's Short Term Goal (STG) Patient will be instructed in all aspects of lipedema self- care to include skin care, self-massage, self-bandaging/ compression options, and lymphedema exercises. STG Duration 04/24/23 Longterm Goal (LTG) Decrease patient?s lipedema to a stable level (no increase or decrease greater than 1 cm over the course of 1 week), patient to be independent with all aspects of self care as above for lipedema, and will obtain appropriate compression garment for lipedema management in the home. Consider home pneumatic compression pump for management of lipedema LTG Duration 06/23/23 Assessment Summary Assessment Patient continues to be highly compliant with self care despite challenges of self- bandaging. Mild decrease in circumferential measurements noted today but measurements appear to be stabilizing. Patient has appointment with Kadie English for consult regarding compression garments on Wednesday after PT. She is hopeful to get daytime and potentially nighttime garments as well Physical Therapy Plan Frequency and Duration Frequency of Treatment 20 visits Duration of treatment (weeks) 12 Plan of Care Start Date 03/24/23 Plan of Care End Date 06/23/23 Therapeutic Interventions Therapeutic Interventions Home Exercise Program, Lymphedema Management,Manual Therapy,Patient/Caregiver Education,Self-Care/Home Management,Therapeutic Activities,Therapeutic Exercises Modalities Vasopneumatic Devices Next Visit Focus/Plan Next Note Type Treatment Note Next Visit Plan Continue Complete Decongestive Therapy until patient fit with compression garments. Transition to self-care.
--- NOTE | 2023-04-14 12:20 | PT.OTN ---
Current Diagnoses Lymphedema, not elsewhere classified (04/14/23) Physical Therapy Treatment Note PT-OP-A Visit Information Start: 03/23/23 14:26 Freq: Status: Active Protocol: Document 04/14/23 10:38 SAK (Rec: 04/14/23 12:20 SAK [id number]) Out-Patient Physical Therapy Visit Information Visit Information Visit Type Treatment Note Visit Start Time 10:20 Visit Stop Time 11:55 Visit Number 6 Evaluation Information Evaluation Date 03/24/23 Precautions Precautions neva knee pain, right hip pain PT-OP-B Current Condition Start: 03/23/23 14:26 Freq: Status: Active Protocol: Document 04/14/23 10:38 SAK (Rec: 04/14/23 12:20 SAK [id number]) Current Condition History of Current Condition Onset Date 19 y/o Current Complaints LE swelling, newly diagnosed lipedema History of Current Condition Reports her physician diagnosed lipedema 3 months ago. States she thinks she has had since 19 y/o, got worse with and with time. Reports pain and easy bruising palpable nodular areas neva LE's. Put on hormone replacement therapy 1 year ago which was wrong hormone combination and has contributed to fatigue and decreased activity level, and some weight gain which has made lipedema worse. Recently stumbled and injured knees resulting in even more swelling, can't bend knees very well. Massage therapist helped her decrease the knee swelling some, but returns after massage session. Patient also reports having some right hip pain with no known cause. Has done some online research about lipidema . Has started walking in the local pool and experiences some pain relief. Hasn't tried any compression garments as not sure what to try. No other treatment for her lipedema. Patient is 4'10, 293 lbs. Prior Treatments and Tests Gastric sleeve surgery 13 years ago, having horrible acid reflux, may be having another procedure. Treatment Goals Patient/Caregiver Goals Decrease and be able to self- manage her lipedema including use of compression garments. Wsn't able to get to gym because closed due to weather. Realized her estrogen patch fell off and she had been feeling like she was in a lipedema flare, not sure how long it was off. Having pain in legs from walking on Wednesday, even with the support of bandages PT-OP-C Subjective Start: 03/23/23 14:26 Freq: Status: Active Protocol: Document 04/14/23 10:38 SAK (Rec: 04/14/23 12:20 [facility] [id number]) OP-PT Subjective Patient Comments Patient Comments No new c/o, going to [facility] today for garment consult. Reports noting decrease in pain since PT started, better ability to bandage, though hopeful for being fit with garments for daytime and possibly Patient Reported Progress Improving PT-OP-F Manual Assessment Start: 03/23/23 14:26 Freq: Status: Active Protocol: Document 03/24/23 10:34 SAK (Rec: 03/24/23 16:55 [facility] [id number]) Manual Assessments Soft Tissue Assessment Soft Tissue Mobility Assessment Palpation of neva LE's reveals tenderness, multiple nodules throughout LE's. No warmth or redness, no pitting PT-OP-G Mobility & Gait Start: 03/23/23 14:26 Freq: Status: Active Protocol: Document 03/24/23 10:34 SAK (Rec: 03/24/23 16:55 [facility] [id number]) OP Gait Assessment Gait Gait Assistance Required: Independent Assistive Devices Assistive Device None Gait Deviations General Gait Pattern Decreased Stride Length, Decreased Feet Clearance Factors Limiting Gait Function Factors Limiting Gait Function Pain PT-OP-H Neuro Start: 03/23/23 14:26 Freq: Status: Active Protocol: Document 03/24/23 10:34 SAK (Rec: 03/24/23 16:55 [facility] [id number]) Sensation Evaluation Gross Sensation Gross Sensation WNL PT-OP-K Range of Motion Start: 03/23/23 14:26 Freq: Status: Active Protocol: Document 03/24/23 10:34 SAK (Rec: 03/24/23 16:55 [facility] [id number]) Hip Goniometric Range of Motion Hip neva Hip ROM WFL Yes Comments pain on right all motions Hip ROM Limitations Hip ROM Limitations Pain Knee Goniometric Range of Motion Knee Left Knee ROM WFL No Flexion Active (degrees) 100 Extension Active (degrees) 0 Right Knee ROM WFL No Flexion Active (degrees) 95 Extension Active (degrees) 0 Knee ROM Limitations Knee ROM Limitations Pain,Swelling Ankle and Foot Goniometric Range of Motion Ankle and Foot neva Ankle/Foot ROM WFL Yes PT-OP-M Strength Start: 03/23/23 14:26 Freq: Status: Active Protocol: Document 03/24/23 10:34 SAK (Rec: 03/24/23 16:55 [facility] [id number]) Hip Strength Hip Manual Muscle Testing Right Flexion (L2) 4- Good- Extension (S1) 3+ Fair+ Abduction 3+ Fair+ Adduction 4- Good- External Rotation 3+ Fair+ Internal Rotation 4- Good- Comments pain all resisted motions Left Flexion (L2) 4+ Good+ Extension (S1) 4- Good- Abduction 4- Good- Adduction 4 Good External Rotation 4- Good- Internal Rotation 4 Good Knee Strength Knee Manual Muscle Testing Right Flexion (S2) 4- Good- Extension (L3) 4- Good- Comments pain right Left Flexion (S2) 4 Good Extension (L3) 4 Good PT-OP-N Lymphedema Start: 03/23/23 14:26 Freq: Status: Active Protocol: Document 04/14/23 10:38 SAK (Rec: 04/14/23 12:20 [facility] [id number]) Lymphedema Measurements Lower Extremity Circumference Measurements Right Affected MT Heads 24.8 cm Mid-foot 23.8 cm Medial Malleolus 30.3 cm 10 cm From Medial Malleolus 34.1 cm 20 cm From Medial Malleolus 47.8 cm 30 cm From Medial Malleolus 54.3 cm 40 cm From Medial Malleolus 51.8 cm 50 cm From Medial Malleolus 58.4 cm 60 cm From Medial Malleolus 68.7 cm 70 cm From Medial Malleolus 77.8 cm 80 cm From Medial Malleolus 93 cm Knee Joint 53.4 cm Left Affected MT Heads 24.9 cm Mid-foot 26.4 cm Medial Malleolus 30.8 cm 10 cm From Medial Malleolus 35.1 cm 20 cm From Medial Malleolus 46.3 cm 30 cm From Medial Malleolus 56.1 cm 40 cm From Medial Malleolus 53.7 cm 50 cm From Medial Malleolus 60.9 cm 60 cm From Medial Malleolus 68.7 cm 70 cm From Medial Malleolus 75.4 cm 80 cm From Medial Malleolus 93.2 cm Knee Joint 56.7 cm PT-OP-Q Treatments Start: 03/23/23 14:26 Freq: Status: Active Protocol: Document 04/14/23 10:38 SAK (Rec: 04/14/23 12:20 [facility] [id number]) Cardio Equipment Recumbent Stepper (Sci-Fit) Duration (Minutes) 10 Resistance 1 Seat Position 12 Other to facilitate lymphatic flow after MLD and bandaging neva LE 's Lymphedema Treatment Manual Lymphatic Drainage Location for neva LE lipedema Duration 55 Lymphedema Wrapping Body Location neva LE's Materials Tricofix size G, Artiflex (4 rolls), Comprilan 8, 10x2, 12x2. Patient long short compression over top for proximal compression upper thighs, hips and abdomen. Isoband thighs and abdomen. Herringbone pattern just below knee and above knee to . Will do further proximal bandaging next session. Sequential Lymphedema Exercises Comments Sci-Fit x 10 min Patient Education Other reviewed self-bandaging technique, problem solving PT-OP-T Assessment and Plan Start: 03/23/23 14:26 Freq: Status: Active Protocol: Document 04/14/23 10:38 [facility] (Rec: 04/14/23 12:20 [facility] [id number]) Physical Therapy Assessment Goals Three Impairment pain and limited ROM and strength neva knees Impairment limits ability to stand and walk in home and community Short Term Goal (STG) Patient to be instructed in lipedema management as well as land and aquatic-based ther ex for improvement of neva knee ROM and strength for improved function in the home and community. STG Duration 04/24/23 Video Game Developer Goal (LTG) Patient to demonstrate neva knee ROM WFL and strength at least 4+/5 and be able to stand and walk at least 30 min . LTG Duration 06/23/23 Two Impairment activity tolerance Impairment Lymphedema Life Impact Scale 56% Short Term Goal (STG) Decrease Lymphedema Life Impact Scale to no greater than 40% as measure of improved activity tolerance and quality of life. STG Duration 04/24/23 Video Game Developer Goal (LTG) Decrease Lymphedema Life Impact Scale to no greater than 20% as measure of improved activity tolerance and quality of life. LTG Duration 06/23/23 One Impairment lipedema bilateral LE's Short Term Goal (STG) Patient will be instructed in all aspects of lipedema self- care to include skin care, self-massage, self-bandaging/ compression options, and lymphedema exercises. STG Duration 04/24/23 Senior Living Goal (LTG) Decrease patient?s lipedema to a stable level (no increase or decrease greater than 1 cm over the course of 1 week), patient to be independent with all aspects of self care as above for lipedema, and will obtain appropriate compression garment for lipedema management in the home. Consider home pneumatic compression pump for management of lipedema LTG Duration 06/23/23 Assessment Summary Assessment Still some decrease in measurements, patient remains highly compliant. Has appointment with Katja [facility]ars[facility] today for consult regarding garments for daytime and possibly nighttime. Physical Therapy Plan Frequency and Duration Frequency of Treatment 20 visits Duration of treatment (weeks) 12 Plan of Care Start Date 03/24/23 Plan of Care End Date 06/23/23 Therapeutic Interventions Therapeutic Interventions Home Exercise Program, Lymphedema Management,Manual Therapy,Patient/Caregiver Education,Self-Care/Home Management,Therapeutic Activities,Therapeutic Exercises Modalities Vasopneumatic Devices Next Visit Focus/Plan Next Note Type Treatment Note Next Visit Plan Continue Complete Decongestive Therapy until patient fit with compression garments. Transition to self-care once appropriate garments obained.
--- NOTE | 2023-04-19 12:02 | PT.OTN ---
Current Diagnoses Lymphedema, not elsewhere classified (04/19/23) Physical Therapy Treatment Note PT-OP-A Visit Information Start: 03/23/23 14:26 Freq: Status: Active Protocol: Document 04/19/23 10:34 SAK (Rec: 04/19/23 11:06 [facility] [id number]) Out-Patient Physical Therapy Visit Information Visit Information Visit Type Treatment Note Visit Start Time 10:20 Visit Stop Time 11:55 Visit Number 7 Evaluation Information Evaluation Date 03/24/23 Precautions Precautions neva knee pain, right hip pain PT-OP-B Current Condition Start: 03/23/23 14:26 Freq: Status: Active Protocol: Document 04/19/23 10:34 SAK (Rec: 04/19/23 11:06 [facility] [id number]) Current Condition History of Current Condition Onset Date 19 y/o Current Complaints LE swelling, newly diagnosed lipedema History of Current Condition Reports her physician diagnosed lipedema 3 months ago. States she thinks she has had since 19 y/o, got worse with and with time. Reports pain and easy bruising palpable nodular areas neva LE's. Put on hormone replacement therapy 1 year ago which was wrong hormone combination and has contributed to fatigue and decreased activity level, and some weight gain which has made lipedema worse. Recently stumbled and injured knees resulting in even more swelling, can't bend knees very well. Massage therapist helped her decrease the knee swelling some, but returns after massage session. Patient also reports having some right hip pain with no known cause. Has done some online research about lipidema . Has started walking in the local pool and experiences some pain relief. Hasn't tried any compression garments as not sure what to try. No other treatment for her lipedema. Patient is 4'10, 293 lbs. Prior Treatments and Tests Gastric sleeve surgery 13 years ago, having horrible acid reflux, may be having another procedure. Treatment Goals Patient/Caregiver Goals Decrease and be able to self- manage her lipedema including use of compression garments. Wsn't able to get to gym because closed due to weather. Realized her estrogen patch fell off and she had been feeling like she was in a lipedema flare, not sure how long it was off. Having pain in legs from walking on Wednesday, even with the support of bandages PT-OP-C Subjective Start: 03/23/23 14:26 Freq: Status: Active Protocol: Document 04/19/23 10:34 SAK (Rec: 04/19/23 11:06 [facility] [id number]) OP-PT Subjective Patient Comments Patient Comments Went to [facility] last week, mid foot to braline 20- 30 mm Hg, should come in 2-3 weeks. PT-OP-F Manual Assessment Start: 03/23/23 14:26 Freq: Status: Active Protocol: Document 03/24/23 10:34 SAK (Rec: 03/24/23 16:55 [facility] [id number]) Manual Assessments Soft Tissue Assessment Soft Tissue Mobility Assessment Palpation of neva LE's reveals tenderness, multiple nodules throughout LE's. No warmth or redness, no pitting PT-OP-G Mobility & Gait Start: 03/23/23 14:26 Freq: Status: Active Protocol: Document 03/24/23 10:34 SAK (Rec: 03/24/23 16:55 [facility] [id number]) OP Gait Assessment Gait Gait Assistance Required: Independent Assistive Devices Assistive Device None Gait Deviations General Gait Pattern Decreased Stride Length, Decreased Feet Clearance Factors Limiting Gait Function Factors Limiting Gait Function Pain PT-OP-H Neuro Start: 03/23/23 14:26 Freq: Status: Active Protocol: Document 03/24/23 10:34 SAK (Rec: 03/24/23 16:55 [facility] [id number]) Sensation Evaluation Gross Sensation Gross Sensation WNL PT-OP-K Range of Motion Start: 03/23/23 14:26 Freq: Status: Active Protocol: Document 03/24/23 10:34 SAK (Rec: 03/24/23 16:55 [facility] [id number]) Hip Goniometric Range of Motion Hip neva Hip ROM WFL Yes Comments pain on right all motions Hip ROM Limitations Hip ROM Limitations Pain Knee Goniometric Range of Motion Knee Left Knee ROM WFL No Flexion Active (degrees) 100 Extension Active (degrees) 0 Right Knee ROM WFL No Flexion Active (degrees) 95 Extension Active (degrees) 0 Knee ROM Limitations Knee ROM Limitations Pain,Swelling Ankle and Foot Goniometric Range of Motion Ankle and Foot neva Ankle/Foot ROM WFL Yes PT-OP-M Strength Start: 03/23/23 14:26 Freq: Status: Active Protocol: Document 03/24/23 10:34 SAK (Rec: 03/24/23 16:55 [facility] [id number]) Hip Strength Hip Manual Muscle Testing Right Flexion (L2) 4- Good- Extension (S1) 3+ Fair+ Abduction 3+ Fair+ Adduction 4- Good- External Rotation 3+ Fair+ Internal Rotation 4- Good- Comments pain all resisted motions Left Flexion (L2) 4+ Good+ Extension (S1) 4- Good- Abduction 4- Good- Adduction 4 Good External Rotation 4- Good- Internal Rotation 4 Good Knee Strength Knee Manual Muscle Testing Right Flexion (S2) 4- Good- Extension (L3) 4- Good- Comments pain right Left Flexion (S2) 4 Good Extension (L3) 4 Good PT-OP-N Lymphedema Start: 03/23/23 14:26 Freq: Status: Active Protocol: Document 04/14/23 10:38 [facility] (Rec: 04/14/23 12:20 [facility] [id number]) Lymphedema Measurements Lower Extremity Circumference Measurements Right Affected MT Heads 24.8 cm Mid-foot 23.8 cm Medial Malleolus 30.3 cm 10 cm From Medial Malleolus 34.1 cm 20 cm From Medial Malleolus 47.8 cm 30 cm From Medial Malleolus 54.3 cm 40 cm From Medial Malleolus 51.8 cm 50 cm From Medial Malleolus 58.4 cm 60 cm From Medial Malleolus 68.7 cm 70 cm From Medial Malleolus 77.8 cm 80 cm From Medial Malleolus 93 cm Knee Joint 53.4 cm Left Affected MT Heads 24.9 cm Mid-foot 26.4 cm Medial Malleolus 30.8 cm 10 cm From Medial Malleolus 35.1 cm 20 cm From Medial Malleolus 46.3 cm 30 cm From Medial Malleolus 56.1 cm 40 cm From Medial Malleolus 53.7 cm 50 cm From Medial Malleolus 60.9 cm 60 cm From Medial Malleolus 68.7 cm 70 cm From Medial Malleolus 75.4 cm 80 cm From Medial Malleolus 93.2 cm Knee Joint 56.7 cm PT-OP-Q Treatments Start: 03/23/23 14:26 Freq: Status: Active Protocol: Document 04/19/23 10:34 [facility] (Rec: 04/19/23 11:06 [facility] [id number]) Cardio Equipment Recumbent Stepper (Sci-Fit) Duration (Minutes) 10 Resistance 1 Seat Position 12 Other to facilitate lymphatic flow after MLD and bandaging neva LE 's Lymphedema Treatment Manual Lymphatic Drainage Location for neva LE lipedema Duration 55 Lymphedema Wrapping Body Location neva LE's Materials Tricofix size G, Artiflex (4 rolls), Comprilan 8, 10x2, 12x2. Patient long short compression over top for proximal compression upper thighs, hips and abdomen. Isoband thighs and abdomen. Herringbone pattern just below knee and above knee to . Will do further proximal bandaging next session. Sequential Lymphedema Exercises Comments Sci-Fit x 10 min PT-OP-T Assessment and Plan Start: 03/23/23 14:26 Freq: Status: Active Protocol: Document 04/19/23 10:34 [facility] (Rec: 04/19/23 11:06 [facility] [id number]) Physical Therapy Assessment Goals Three Impairment pain and limited ROM and strength neva knees Impairment limits ability to stand and walk in home and community Short Term Goal (STG) Patient to be instructed in lipedema management as well as land and aquatic-based ther ex for improvement of neva knee ROM and strength for improved function in the home and community. STG Duration 2 Grader Green Meat Goal (LTG) Patient to demonstrate neva knee ROM WFL and strength at least 4+/5 and be able to stand and walk at least 30 min . LTG Duration 06/23/23 Two Impairment activity tolerance Impairment Lymphedema Life Impact Scale 56% Short Term Goal (STG) Decrease Lymphedema Life Impact Scale to no greater than 40% as measure of improved activity tolerance and quality of life. STG Duration 04/24/23 Grader [employer] Meat Goal (LTG) Decrease Lymphedema Life Impact Scale to no greater than 20% as measure of improved activity tolerance and quality of life. LTG Duration 06/23/23 One Impairment lipedema bilateral LE's Short Term Goal (STG) Patient will be instructed in all aspects of lipedema self- care to include skin care, self-massage, self-bandaging/ compression options, and lymphedema exercises. STG Duration 2 Usp Goal (LTG) Decrease patient?s lipedema to a stable level (no increase or decrease greater than 1 cm over the course of 1 week), patient to be independent with all aspects of self care as above for lipedema, and will obtain appropriate compression garment for lipedema management in the home. Consider home pneumatic compression pump for management of lipedema LTG Duration 06/23/23 Assessment Summary Assessment Patient continues to be compliant with self-care, improving home bandaging. Has ordered compression garments through [employer]. Is considering surgery as an option, may have consultations . Feel she will benefit from the use of pneumatic compression pump for home use due to good response to MLD but extensive time and physical demands of self MLD on a daily basis. Physical Therapy Plan Frequency and Duration Frequency of Treatment 20 visits Duration of treatment (weeks) 12 Plan of Care Start Date 03/24/23 Plan of Care End Date 06/23/23 Therapeutic Interventions Therapeutic Interventions Home Exercise Program, Lymphedema Management,Manual Therapy,Patient/Caregiver Education,Self-Care/Home Management,Therapeutic Activities,Therapeutic Exercises Modalities Vasopneumatic Devices Next Visit Focus/Plan Next Note Type Treatment Note Next Visit Plan Continue Complete Decongestive Therapy until patient fit with compression garments. Transition to self-care once appropriate garments obained. PT to request physician prescription for compression pump next week after 30 days of conservative therapy.
--- NOTE | 2023-04-26 10:15 | PT.OPPN ---
Current Diagnoses Lymphedema, not elsewhere classified (04/21/23) Physical Therapy Progress Note PT-OP-A Visit Information Start: 03/23/23 14:26 Freq: Status: Active Protocol: Document 04/26/23 10:07 SAK (Rec: 04/26/23 10:15 SAK [id number]) Out-Patient Physical Therapy Visit Information Visit Information Visit Type Progress Note Evaluation Information Evaluation Date 03/24/23 Precautions Precautions neva knee pain, right hip pain PT-OP-B Current Condition Start: 03/23/23 14:26 Freq: Status: Active Protocol: Document 04/21/23 10:30 SAK (Rec: 04/21/23 10:48 SAK [id number]) Current Condition History of Current Condition Onset Date 19 y/o Current Complaints LE swelling, newly diagnosed lipedema History of Current Condition Reports her physician diagnosed lipedema 3 months ago. States she thinks she has had since 19 y/o, got worse with and with time. Reports pain and easy bruising palpable nodular areas neva LE's. Put on hormone replacement therapy 1 year ago which was wrong hormone combination and has contributed to fatigue and decreased activity level, and some weight gain which has made lipedema worse. Recently stumbled and injured knees resulting in even more swelling, can't bend knees very well. Massage therapist helped her decrease the knee swelling some, but returns after massage session. Patient also reports having some right hip pain with no known cause. Has done some online research about lipidema . Has started walking in the local pool and experiences some pain relief. Hasn't tried any compression garments as not sure what to try. No other treatment for her lipedema. Patient is 4'10, 293 lbs. Prior Treatments and Tests Gastric sleeve surgery 13 years ago, having horrible acid reflux, may be having another procedure. Treatment Goals Patient/Caregiver Goals Decrease and be able to self- manage her lipedema including use of compression garments. Wsn't able to get to gym because closed due to weather. Realized her estrogen patch fell off and she had been feeling like she was in a lipedema flare, not sure how long it was off. Having pain in legs from walking on Wednesday, even with the support of bandages PT-OP-C Subjective Start: 03/23/23 14:26 Freq: Status: Active Protocol: Document 04/21/23 10:30 SAK (Rec: 04/21/23 10:48 [facility] [id number]) OP-PT Subjective Patient Comments Patient Comments No new c/o. Hasn't yet made appointment for consultation with with surgeon. Continues bandaging bilateral LE's, didn 't make it to the pool yesterday. Is going to have allergy testing because is trying to eat an anti- inflammatory diet as part of addressing her lipedema, has history of allergies to multiple foods so struggling with her diet PT-OP-F Manual Assessment Start: 03/23/23 14:26 Freq: Status: Active Protocol: Document 03/24/23 10:34 [facility] (Rec: 03/24/23 16:55 [facility] [id number]) Manual Assessments Soft Tissue Assessment Soft Tissue Mobility Assessment Palpation of neva LE's reveals tenderness, multiple nodules throughout LE's. No warmth or redness, no pitting PT-OP-G Mobility & Gait Start: 03/23/23 14:26 Freq: Status: Active Protocol: Document 03/24/23 10:34 [facility] (Rec: 03/24/23 16:55 [facility] [id number]) OP Gait Assessment Gait Gait Assistance Required: Independent Assistive Devices Assistive Device None Gait Deviations General Gait Pattern Decreased Stride Length, Decreased Feet Clearance Factors Limiting Gait Function Factors Limiting Gait Function Pain PT-OP-H Neuro Start: 03/23/23 14:26 Freq: Status: Active Protocol: Document 03/24/23 10:34 [facility] (Rec: 03/24/23 16:55 [facility] [id number]) Sensation Evaluation Gross Sensation Gross Sensation WNL PT-OP-K Range of Motion Start: 03/23/23 14:26 Freq: Status: Active Protocol: Document 03/24/23 10:34 [facility] (Rec: 03/24/23 16:55 [facility] [id number]) Hip Goniometric Range of Motion Hip Measured in Degrees neva Hip ROM WFL Yes Comments pain on right all motions Hip ROM Limitations Hip ROM Limitations Pain Knee Goniometric Range of Motion Knee Measured in Degrees Left Knee ROM WFL No Flexion Active (degrees) 100 Extension Active (degrees) 0 Right Knee ROM WFL No Flexion Active (degrees) 95 Extension Active (degrees) 0 Knee ROM Limitations Knee ROM Limitations Pain,Swelling Ankle and Foot Goniometric Range of Motion Ankle and Foot Measured in Degrees neva Ankle/Foot ROM WFL Yes PT-OP-M Strength Start: 03/23/23 14:26 Freq: Status: Active Protocol: Document 03/24/23 10:34 SAK (Rec: 03/24/23 16:55 [facility] [id number]) Hip Strength Hip Manual Muscle Testing Right Flexion (L2) 4- Good- Extension (S1) 3+ Fair+ Abduction 3+ Fair+ Adduction 4- Good- External Rotation 3+ Fair+ Internal Rotation 4- Good- Comments pain all resisted motions Left Flexion (L2) 4+ Good+ Extension (S1) 4- Good- Abduction 4- Good- Adduction 4 Good External Rotation 4- Good- Internal Rotation 4 Good Knee Strength Knee Manual Muscle Testing Right Flexion (S2) 4- Good- Extension (L3) 4- Good- Comments pain right Left Flexion (S2) 4 Good Extension (L3) 4 Good PT-OP-N Lymphedema Start: 03/23/23 14:26 Freq: Status: Active Protocol: Document 04/21/23 10:30 SAK (Rec: 04/21/23 11:21 [facility] [id number]) Lymphedema Measurements Lower Extremity Circumference Measurements Right Affected MT Heads 24.5 cm Mid-foot 24 cm Medial Malleolus 30.5 cm 10 cm From Medial Malleolus 34.5 cm 20 cm From Medial Malleolus 47.8 cm 30 cm From Medial Malleolus 53.8 cm 40 cm From Medial Malleolus 51.6 cm 50 cm From Medial Malleolus 58.9 cm 60 cm From Medial Malleolus 69.2 cm 70 cm From Medial Malleolus 77.9 cm 80 cm From Medial Malleolus 93.2 cm Knee Joint 53.4 cm Left Affected MT Heads 24.9 cm Mid-foot 26.5 cm Medial Malleolus 32 cm 10 cm From Medial Malleolus 35.1 cm 20 cm From Medial Malleolus 47 cm 30 cm From Medial Malleolus 55 cm 40 cm From Medial Malleolus 52.6 cm 50 cm From Medial Malleolus 61 cm 60 cm From Medial Malleolus 71 cm 70 cm From Medial Malleolus 75.9 cm 80 cm From Medial Malleolus 93.2 cm Knee Joint 56 cm PT-OP-T Assessment and Plan Start: 03/23/23 14:26 Freq: Status: Active Protocol: Document 04/26/23 10:07 SAK (Rec: 04/26/23 10:15 SAK [id number]) Physical Therapy Assessment Goals Three Impairment pain and limited ROM and strength neva knees Impairment limits ability to stand and walk in home and community Short Term Goal (STG) Patient to be instructed in lipedema management as well as land and aquatic-based ther ex for improvement of neva knee ROM and strength for improved function in the home and community. 04/26/23: goal met STG Duration goal met Group Home Goal (LTG) Patient to demonstrate neva knee ROM WFL and strength at least 4+/5 and be able to stand and walk at least 30 min . LTG Duration 06/23/23 Two Impairment activity tolerance Impairment Lymphedema Life Impact Scale 56% Short Term Goal (STG) Decrease Lymphedema Life Impact Scale to no greater than 40% as measure of improved activity tolerance and quality of life. 04/26/23: goal met STG Duration goal met Body Painter Goal (LTG) Decrease Lymphedema Life Impact Scale to no greater than 20% as measure of improved activity tolerance and quality of life. LTG Duration 06/23/23 One Impairment lipedema bilateral LE's Short Term Goal (STG) Patient will be instructed in all aspects of lipedema self- care to include skin care, self-massage, self-bandaging/ compression options, and lymphedema exercises. 04/26/23: goal met STG Duration goal met Group Home Goal (LTG) Decrease patient?s lipedema to a stable level (no increase or decrease greater than 1 cm over the course of 1 week), patient to be independent with all aspects of self care as above for lipedema, and will obtain appropriate compression garment for lipedema management in the home. Consider home pneumatic compression pump for management of lipedema LTG Duration 06/23/23 Assessment Summary Assessment Elena has completed over 30 days of conservative therapy for her function-limiting bilateral LE lipedema including elevation, exercise, skin care, manual lymphatic drainage, and compression bandaging and wearing of compression shorts. She has been exceptionally compliant with all aspects of her self care and is very motivated, seeking out educational sources to learn more about lipedema in addition to education provided by PT. Patient measurements stable at this time. Is waiting for her compression garments. Due to the challenges and time required for her self care and the positive response to trial sequential pneumatic pump I highly recommend patient obtain a pump with pants sleeve to assist her in her self management of her bilateral lower extremity lipedema. The pants sleeve is required for this patient due to the disproportionate distribution of her lipedema in her upper hips which would not get cleared with regular leg sleeves. Patient is excited about this possibility . [ End ] Physical Therapy Plan Frequency and Duration Frequency of Treatment 20 visits Duration of treatment (weeks) 12 Plan of Care Start Date 03/24/23 Plan of Care End Date 06/23/23 Therapeutic Interventions Therapeutic Interventions Home Exercise Program, Lymphedema Management,Manual Therapy,Patient/Caregiver Education,Self-Care/Home Management,Therapeutic Activities,Therapeutic Exercises Modalities Vasopneumatic Devices Next Visit Focus/Plan Next Note Type Treatment Note Next Visit Plan Continue CLT until patient receives compression garments. Assist patient with obtaining sequential pneumatic pump for home use.
--- NOTE | 2023-05-12 11:59 | PT.OTN ---
Current Diagnoses Lymphedema, not elsewhere classified (05/12/23) Physical Therapy Treatment Note PT-OP-A Visit Information Start: 03/23/23 14:26 Freq: Status: Active Protocol: Document 05/12/23 10:25 SAK (Rec: 05/12/23 11:07 [facility] [id number]) Out-Patient Physical Therapy Visit Information Visit Information Visit Type Treatment Note Visit Start Time 10:30 Visit Stop Time 12:00 Visit Number 9 Evaluation Information Evaluation Date 03/24/23 Precautions Precautions neva knee pain, right hip pain PT-OP-B Current Condition Start: 03/23/23 14:26 Freq: Status: Active Protocol: Document 05/12/23 10:25 SAK (Rec: 05/12/23 11:07 [facility] [id number]) Current Condition History of Current Condition Onset Date 19 y/o Current Complaints LE swelling, newly diagnosed lipedema History of Current Condition Reports her physician diagnosed lipedema 3 months ago. States she thinks she has had since 19 y/o, got worse with and with time. Reports pain and easy bruising palpable nodular areas neav LE's. Put on hormone replacement therapy 1 year ago which was wrong hormone combination and has contributed to fatigue and decreased activity level, and some weight gain which has made lipedema worse. Recently stumbled and injured knees resulting in even more swelling, can't bend knees very well. Massage therapist helped her decrease the knee swelling some, but returns after massage session. Patient also reports having some right hip pain with no known cause. Has done some online research about lipidema . Has started walking in the local pool and experiences some pain relief. Hasn't tried any compression garments as not sure what to try. No other treatment for her lipedema. Patient is 4'10, 293 lbs. Prior Treatments and Tests Gastric sleeve surgery 13 years ago, having horrible acid reflux, may be having another procedure. Treatment Goals Patient/Caregiver Goals Decrease and be able to self- manage her lipedema including use of compression garments. Wsn't able to get to gym because closed due to weather. Realized her estrogen patch fell off and she had been feeling like she was in a lipedema flare, not sure how long it was off. Having pain in legs from walking on Wednesday, even with the support of bandages PT-OP-C Subjective Start: 03/23/23 14:26 Freq: Status: Active Protocol: Document 05/12/23 10:25 SAK (Rec: 05/12/23 11:07 [facility] [id number]) OP-PT Subjective Patient Comments Patient Comments Working with insurance company and regarding compression garments. Next appt is with [facility] in [place] for measurement appt 05/18/23. Ordered [employer] and loves them. Seeing surgeon in [place] online appt 05/25/23. Had neva knee and hip xrays; mild arthritis neva knees, mild arthritis right hip, mod left . PT-OP-F Manual Assessment Start: 03/23/23 14:26 Freq: Status: Active Protocol: Document 03/24/23 10:34 SAK (Rec: 03/24/23 16:55 [facility] [id number]) Manual Assessments Soft Tissue Assessment Soft Tissue Mobility Assessment Palpation of neva LE's reveals tenderness, multiple nodules throughout LE's. No warmth or redness, no pitting PT-OP-G Mobility & Gait Start: 03/23/23 14:26 Freq: Status: Active Protocol: Document 03/24/23 10:34 SAK (Rec: 03/24/23 16:55 [facility] [id number]) OP Gait Assessment Gait Gait Assistance Required: Independent Assistive Devices Assistive Device None Gait Deviations General Gait Pattern Decreased Stride Length, Decreased Feet Clearance Factors Limiting Gait Function Factors Limiting Gait Function Pain PT-OP-H Neuro Start: 03/23/23 14:26 Freq: Status: Active Protocol: Document 03/24/23 10:34 SAK (Rec: 03/24/23 16:55 [facility] [id number]) Sensation Evaluation Gross Sensation Gross Sensation WNL PT-OP-K Range of Motion Start: 03/23/23 14:26 Freq: Status: Active Protocol: Document 03/24/23 10:34 SAK (Rec: 03/24/23 16:55 [facility] [id number]) Hip Goniometric Range of Motion Hip neva Hip ROM WFL Yes Comments pain on right all motions Hip ROM Limitations Hip ROM Limitations Pain Knee Goniometric Range of Motion Knee Left Knee ROM WFL No Flexion Active (degrees) 100 Extension Active (degrees) 0 Right Knee ROM WFL No Flexion Active (degrees) 95 Extension Active (degrees) 0 Knee ROM Limitations Knee ROM Limitations Pain,Swelling Ankle and Foot Goniometric Range of Motion Ankle and Foot neva Ankle/Foot ROM WFL Yes PT-OP-M Strength Start: 03/23/23 14:26 Freq: Status: Active Protocol: Document 03/24/23 10:34 SAK (Rec: 03/24/23 16:55 [facility] [id number]) Hip Strength Hip Manual Muscle Testing Right Flexion (L2) 4- Good- Extension (S1) 3+ Fair+ Abduction 3+ Fair+ Adduction 4- Good- External Rotation 3+ Fair+ Internal Rotation 4- Good- Comments pain all resisted motions Left Flexion (L2) 4+ Good+ Extension (S1) 4- Good- Abduction 4- Good- Adduction 4 Good External Rotation 4- Good- Internal Rotation 4 Good Knee Strength Knee Manual Muscle Testing Right Flexion (S2) 4- Good- Extension (L3) 4- Good- Comments pain right Left Flexion (S2) 4 Good Extension (L3) 4 Good PT-OP-N Lymphedema Start: 03/23/23 14:26 Freq: Status: Active Protocol: Document 05/12/23 10:25 JODY (Rec: 05/12/23 11:07 [facility] [id number]) Lymphedema Measurements Lower Extremity Circumference Measurements Right Affected MT Heads 24.5 cm Mid-foot 23.8 cm Medial Malleolus 1.2 cm 10 cm From Medial Malleolus 37 cm 20 cm From Medial Malleolus 47.6 cm 30 cm From Medial Malleolus 53.5 cm 40 cm From Medial Malleolus 50.5 cm 50 cm From Medial Malleolus 54.9 cm 60 cm From Medial Malleolus 67.3 cm 70 cm From Medial Malleolus 77.9 cm 80 cm From Medial Malleolus 93.8 cm Knee Joint 50.9 cm - old pump Left Affected MT Heads 25.3 cm Mid-foot 26.3 cm Medial Malleolus 31.4 cm 10 cm From Medial Malleolus 36.1 cm 20 cm From Medial Malleolus 47.4 cm 30 cm From Medial Malleolus 54.7 cm 40 cm From Medial Malleolus 51.2 cm 50 cm From Medial Malleolus 59.9 cm 60 cm From Medial Malleolus 71 cm 70 cm From Medial Malleolus 77.9 cm 80 cm From Medial Malleolus 95 cm Knee Joint 53.1 cm - from ant ankle crease: widest hip 153.5 cm widest buttock: 146 cm PT-OP-Q Treatments Start: 03/23/23 14:26 Freq: Status: Active Protocol: Document 05/12/23 10:25 SAK (Rec: 05/12/23 11:07 SAK [id number]) Cardio Equipment Recumbent Stepper (Sci-Fit) Duration (Minutes) 15 Resistance 2.5-3.1 Seat Position 12 Other to facilitate lymphatic flow after MLD and bandaging neva LE 's PT-OP-T Assessment and Plan Start: 03/23/23 14:26 Freq: Status: Active Protocol: Document 05/12/23 10:25 SAK (Rec: 05/12/23 11:07 [facility] [id number]) Physical Therapy Assessment Goals Three Impairment pain and limited ROM and strength neva knees Impairment limits ability to stand and walk in home and community Short Term Goal (STG) Patient to be instructed in lipedema management as well as land and aquatic-based ther ex for improvement of neva knee ROM and strength for improved function in the home and community. 04/26/23: goal met STG Duration goal met Intermediate Goal (LTG) Patient to demonstrate neva knee ROM WFL and strength at least 4+/5 and be able to stand and walk at least 30 min . LTG Duration 06/23/23 Two Impairment activity tolerance Impairment Lymphedema Life Impact Scale 56% Short Term Goal (STG) Decrease Lymphedema Life Impact Scale to no greater than 40% as measure of improved activity tolerance and quality of life. 04/26/23: goal met STG Duration goal met Ssn/Ssbn Weapons Equipment Operator Goal (LTG) Decrease Lymphedema Life Impact Scale to no greater than 20% as measure of improved activity tolerance and quality of life. LTG Duration 06/23/23 One Impairment lipedema bilateral LE's Short Term Goal (STG) Patient will be instructed in all aspects of lipedema self- care to include skin care, self-massage, self-bandaging/ compression options, and lymphedema exercises. 04/26/23: goal met STG Duration goal met Intermediate Goal (LTG) Decrease patient?s lipedema to a stable level (no increase or decrease greater than 1 cm over the course of 1 week), patient to be independent with all aspects of self care as above for lipedema, and will obtain appropriate compression garment for lipedema management in the home. Consider home pneumatic compression pump for management of lipedema LTG Duration 06/23/23 Assessment Summary Assessment Reporting improved pain and mobility, remins highly consistent with her self-care. Awaiting appointment for measurement for custom compression garments. PT to pursue other company for compression pumps due to [employer] pants not able to made large enough for patient. Elena has completed over 30 days of conservative therapy for her function-limiting bilateral LE lipedema including elevation, exercise, skin care , manual lymphatic drainage, and compression bandaging and wearing of compression shorts. She has been exceptionally compliant with all aspects of her self care and is very motivated, seeking out educational sources to learn more about lipedema in addition to education provided by PT. Patient measurements stable at this time. Is waiting for her compression garments. Due to the challenges and time required for her self care and the positive response to trial sequential pneumatic pump I highly recommend patient obtain a pump with pants sleeve to assist her in her self management of her bilateral lower extremity lipedema. The pants sleeve is required for this patient due to the disproportionate distribution of her lipedema in her upper hips which would not get cleared with regular leg sleeves. Patient is excited about this possibility . Physical Therapy Plan Frequency and Duration Frequency of Treatment 20 visits Duration of treatment (weeks) 12 Plan of Care Start Date 03/24/23 Plan of Care End Date 06/23/23 Therapeutic Interventions Therapeutic Interventions Home Exercise Program, Lymphedema Management,Manual Therapy,Patient/Caregiver Education,Self-Care/Home Management,Therapeutic Activities,Therapeutic Exercises Modalities Vasopneumatic Devices Next Visit Focus/Plan Next Note Type Treatment Note Next Visit Plan Continue CLT until patient receives compression garments. Assist patient with obtaining sequential pneumatic pump for home use.
--- NOTE | 2023-06-10 16:16 | PT.OTN ---
Current Diagnoses Lymphedema, not elsewhere classified (06/10/23) Physical Therapy Treatment Note PT-OP-A Visit Information Start: 03/23/23 14:26 Freq: Status: Active Protocol: Document 06/10/23 14:15 SAK (Rec: 06/10/23 16:14 [facility] [id number]) Out-Patient Physical Therapy Visit Information Visit Information Visit Type Treatment Note Visit Start Time 14:30 Visit Stop Time 16:00 Visit Number 10 Evaluation Information Evaluation Date 03/24/23 Precautions Precautions neva knee pain, right hip pain PT-OP-B Current Condition Start: 03/23/23 14:26 Freq: Status: Active Protocol: Document 06/10/23 14:15 SAK (Rec: 06/10/23 16:14 SAK [id number]) Current Condition History of Current Condition Onset Date 19 y/o Current Complaints LE swelling, newly diagnosed lipedema History of Current Condition Reports her physician diagnosed lipedema 3 months ago. States she thinks she has had since 19 y/o, got worse with and with time. Reports pain and easy bruising palpable nodular areas neva LE's. Put on hormone replacement therapy 1 year ago which was wrong hormone combination and has contributed to fatigue and decreased activity level, and some weight gain which has made lipedema worse. Recently stumbled and injured knees resulting in even more swelling, can't bend knees very well. Massage therapist helped her decrease the knee swelling some, but returns after massage session. Patient also reports having some right hip pain with no known cause. Has done some online research about lipidema . Has started walking in the local pool and experiences some pain relief. Hasn't tried any compression garments as not sure what to try. No other treatment for her lipedema. Patient is 4'10, 293 lbs. Prior Treatments and Tests Gastric sleeve surgery 13 years ago, having horrible acid reflux, may be having another procedure. Treatment Goals Patient/Caregiver Goals Decrease and be able to self- manage her lipedema including use of compression garments. Wsn't able to get to gym because closed due to weather. Realized her estrogen patch fell off and she had been feeling like she was in a lipedema flare, not sure how long it was off. Having pain in legs from walking on Wednesday, even with the support of bandages PT-OP-C Subjective Start: 03/23/23 14:26 Freq: Status: Active Protocol: Document 06/10/23 14:15 SAK (Rec: 06/10/23 16:14 [facility] [id number]) OP-PT Subjective Patient Comments Patient Comments Insurance wouldn't cover Kadie Quintanas, went the [facility] in [place] instead to be measured for custom fit compression garment. Had consultation with Dr. Gertrudis glynn, now going to schedule in person visit for consultation regarding lipedema surgery. Wearing Bioflect, also using CzSalus micromassage 18-23 likes better due to higher level of compression feels more effective. Bandaging when not wearing compression garment until receives custom garment next Wednesday. Hopeful still to get pneumatic compression pump, doing trial with Flexitouch in PT today. PT-OP-F Manual Assessment Start: 03/23/23 14:26 Freq: Status: Active Protocol: Document 03/24/23 10:34 [facility] (Rec: 03/24/23 16:55 [facility] [id number]) Manual Assessments Soft Tissue Assessment Soft Tissue Mobility Assessment Palpation of neva LE's reveals tenderness, multiple nodules throughout LE's. No warmth or redness, no pitting PT-OP-G Mobility & Gait Start: 03/23/23 14:26 Freq: Status: Active Protocol: Document 03/24/23 10:34 SAK (Rec: 03/24/23 16:55 [facility] [id number]) OP Gait Assessment Gait Gait Assistance Required: Independent Assistive Devices Assistive Device None Gait Deviations General Gait Pattern Decreased Stride Length, Decreased Feet Clearance Factors Limiting Gait Function Factors Limiting Gait Function Pain PT-OP-H Neuro Start: 03/23/23 14:26 Freq: Status: Active Protocol: Document 03/24/23 10:34 SAK (Rec: 03/24/23 16:55 [facility] [id number]) Sensation Evaluation Gross Sensation Gross Sensation WNL PT-OP-K Range of Motion Start: 03/23/23 14:26 Freq: Status: Active Protocol: Document 03/24/23 10:34 SAK (Rec: 03/24/23 16:55 [facility] [id number]) Hip Goniometric Range of Motion Hip neva Hip ROM WFL Yes Comments pain on right all motions Hip ROM Limitations Hip ROM Limitations Pain Knee Goniometric Range of Motion Knee Left Knee ROM WFL No Flexion Active (degrees) 100 Extension Active (degrees) 0 Right Knee ROM WFL No Flexion Active (degrees) 95 Extension Active (degrees) 0 Knee ROM Limitations Knee ROM Limitations Pain,Swelling Ankle and Foot Goniometric Range of Motion Ankle and Foot neva Ankle/Foot ROM WFL Yes PT-OP-M Strength Start: 03/23/23 14:26 Freq: Status: Active Protocol: Document 03/24/23 10:34 [facility] (Rec: 03/24/23 16:55 [facility] [id number]) Hip Strength Hip Manual Muscle Testing Right Flexion (L2) 4- Good- Extension (S1) 3+ Fair+ Abduction 3+ Fair+ Adduction 4- Good- External Rotation 3+ Fair+ Internal Rotation 4- Good- Comments pain all resisted motions Left Flexion (L2) 4+ Good+ Extension (S1) 4- Good- Abduction 4- Good- Adduction 4 Good External Rotation 4- Good- Internal Rotation 4 Good Knee Strength Knee Manual Muscle Testing Right Flexion (S2) 4- Good- Extension (L3) 4- Good- Comments pain right Left Flexion (S2) 4 Good Extension (L3) 4 Good PT-OP-N Lymphedema Start: 03/23/23 14:26 Freq: Status: Active Protocol: Document 05/12/23 10:25 [facility] (Rec: 05/12/23 11:07 [facility] [id number]) Lymphedema Measurements Lower Extremity Circumference Measurements Right Affected MT Heads 24.5 cm Mid-foot 23.8 cm Medial Malleolus 1.2 cm 10 cm From Medial Malleolus 37 cm 20 cm From Medial Malleolus 47.6 cm 30 cm From Medial Malleolus 53.5 cm 40 cm From Medial Malleolus 50.5 cm 50 cm From Medial Malleolus 54.9 cm 60 cm From Medial Malleolus 67.3 cm 70 cm From Medial Malleolus 77.9 cm 80 cm From Medial Malleolus 93.8 cm Knee Joint 50.9 cm - old pump Left Affected MT Heads 25.3 cm Mid-foot 26.3 cm Medial Malleolus 31.4 cm 10 cm From Medial Malleolus 36.1 cm 20 cm From Medial Malleolus 47.4 cm 30 cm From Medial Malleolus 54.7 cm 40 cm From Medial Malleolus 51.2 cm 50 cm From Medial Malleolus 59.9 cm 60 cm From Medial Malleolus 71 cm 70 cm From Medial Malleolus 77.9 cm 80 cm From Medial Malleolus 95 cm Knee Joint 53.1 cm - from ant ankle crease: widest hip 153.5 cm widest buttock: 146 cm PT-OP-Q Treatments Start: 03/23/23 14:26 Freq: Status: Active Protocol: Document 06/10/23 14:15 [facility] (Rec: 06/10/23 16:14 [facility] [id number]) Cardio Equipment Recumbent Stepper (Sci-Fit) Duration (Minutes) 15 Resistance 2.5-3.1 Seat Position 12 Other to facilitate lymphatic flow after MLD and bandaging neva LE 's Lymphedema Treatment Manual Lymphatic Drainage Comments Trial Flexitouch basic and Advanced pumps. Assessment of new off the shelf compression garment Lymphedema Wrapping Materials assisted patient in donning and providing instruction in self donning for compression pantyhose. Pt. demonstrated good understanding Sequential Lymphedema Exercises Comments patient continues independently including aquatic exercise Patient Education Compression Garments as above Self Manual Lymphatic Drainage Flexitouch trial PT-OP-T Assessment and Plan Start: 03/23/23 14:26 Freq: Status: Active Protocol: Document 06/10/23 14:15 [facility] (Rec: 06/10/23 16:14 [facility] [id number]) Physical Therapy Assessment Goals Three Impairment pain and limited ROM and strength neva knees Impairment limits ability to stand and walk in home and community Short Term Goal (STG) Patient to be instructed in lipedema management as well as land and aquatic-based ther ex for improvement of neva knee ROM and strength for improved function in the home and community. 04/26/23: goal met STG Duration goal met Fpc Goal (LTG) Patient to demonstrate neva knee ROM WFL and strength at least 4+/5 and be able to stand and walk at least 30 min . LTG Duration 06/23/23 Two Impairment activity tolerance Impairment Lymphedema Life Impact Scale 56% Short Term Goal (STG) Decrease Lymphedema Life Impact Scale to no greater than 40% as measure of improved activity tolerance and quality of life. 04/26/23: goal met STG Duration goal met Fpc Goal (LTG) Decrease Lymphedema Life Impact Scale to no greater than 20% as measure of improved activity tolerance and quality of life. LTG Duration 06/23/23 One Impairment lipedema bilateral LE's Short Term Goal (STG) Patient will be instructed in all aspects of lipedema self- care to include skin care, self-massage, self-bandaging/ compression options, and lymphedema exercises. 04/26/23: goal met STG Duration goal met Transmission Operator Goal (LTG) Decrease patient?s lipedema to a stable level (no increase or decrease greater than 1 cm over the course of 1 week), patient to be independent with all aspects of self care as above for lipedema, and will obtain appropriate compression garment for lipedema management in the home. Consider home pneumatic compression pump for management of lipedema LTG Duration 06/23/23 Assessment Summary Assessment Patient started PT for her lymphedema 03/24/23. Despite over 30 days of conserative complete decongestive therapy patient has difficulty with self-management of her lymphedema resulting from lipedema. Patient remains highly compliant to all aspects of self lymphedema care including elevation, skin care, manual lymphatic drainage, lymphedema exercises , and compression. Feel she would benefit highly from the use of a pneumatic compression pump in the home for lymphedema management. Pt. trialed the Entre basic pump in the clinic at low pressure for 15 min, measured at the hips pre treatment at 149 cm, after 15 min treatment, after treatment with basic pump measurement increased to 150 cm. Patient has significant pain associated with lipedema and the high static pressure from the basic pump could cause significant pain for her . Recommend patient receive the Flexitouch Advanced Pump which will better manage her symptoms of her lipolymphedema in a more comfortable sequential way. Physical Therapy Plan Frequency and Duration Frequency of Treatment 1 visit Duration of treatment (weeks) 12 Plan of Care Start Date 06/10/23 Plan of Care End Date 09/10/23 Therapeutic Interventions Therapeutic Interventions Home Exercise Program, Lymphedema Management,Manual Therapy,Patient/Caregiver Education,Self-Care/Home Management,Therapeutic Activities,Therapeutic Exercises Modalities Vasopneumatic Devices Next Visit Focus/Plan Next Note Type Treatment Note Next Visit Plan Follow-up appt to assess new compression garments, assure appropriate use of compression pump, take circumferential measurements, and do final review of HEP.
--- NOTE | 2023-06-10 16:20 | PT.OTRE ---
Current Diagnoses Lymphedema, not elsewhere classified (06/10/23) Past Medical History (Last Updated 02/18/23 @ 16:00 by Elina Johnson MD) Asthma exacerbation Menopausal symptoms Morbid (severe) obesity due to excess calories Pneumonia Recurrent HSV (herpes simplex virus) Surgical History (Last Updated 01/03/23 @ 11:17 by Elina Johnson MD) History of bariatric surgery Visit Care Team Role Provider Type Elina Johnson MD Attending Provider Physician Family Provider Primary Care Provider Referring Provider Specialty: Family Practice Address: [address] [place] [address], [facility] Fax: Email: [email or web address] Physical Therapy Re-Evaluation PT-OP-A Visit Information Start: 03/23/23 14:26 Freq: Status: Active Protocol: Document 06/10/23 14:15 SAK (Rec: 06/10/23 16:14 SAK [id number]) Out-Patient Physical Therapy Visit Information Visit Information Visit Type Treatment Note Visit Start Time 14:30 Visit Stop Time 16:00 Visit Number 10 Evaluation Information Evaluation Date 03/24/23 Precautions Precautions neva knee pain, right hip pain PT-OP-B Current Condition Start: 03/23/23 14:26 Freq: Status: Active Protocol: Document 06/10/23 14:15 SAK (Rec: 06/10/23 16:14 [facility]AK [id number]) Current Condition History of Current Condition Onset Date 19 y/o Current Complaints LE swelling, newly diagnosed lipedema History of Current Condition Reports her physician diagnosed lipedema 3 months ago. States she thinks she has had since 19 y/o, got worse with and with time. Reports pain and easy bruising palpable nodular areas neva LE's. Put on hormone replacement therapy 1 year ago which was wrong hormone combination and has contributed to fatigue and decreased activity level, and some weight gain which has made lipedema worse. Recently stumbled and injured knees resulting in even more swelling, can't bend knees very well. Massage therapist helped her decrease the knee swelling some, but returns after massage session. Patient also reports having some right hip pain with no known cause. Has done some online research about lipidema . Has started walking in the local pool and experiences some pain relief. Hasn't tried any compression garments as not sure what to try. No other treatment for her lipedema. Patient is 4'10, 293 lbs. Prior Treatments and Tests Gastric sleeve surgery 13 years ago, having horrible acid reflux, may be having another procedure. Treatment Goals Patient/Caregiver Goals Decrease and be able to self- manage her lipedema including use of compression garments. Wsn't able to get to gym because closed due to weather. Realized her estrogen patch fell off and she had been feeling like she was in a lipedema flare, not sure how long it was off. Having pain in legs from walking on Wednesday, even with the support of bandages PT-OP-C Subjective Start: 03/23/23 14:26 Freq: Status: Active Protocol: Document 06/10/23 14:15 SAK (Rec: 06/10/23 16:14 [facility] [id number]) OP-PT Subjective Patient Comments Patient Comments Insurance wouldn't cover Kadie Heredia's, went the [facility] in [place] instead to be measured for custom fit compression garment. Had consultation with Dr. Gertrudis glynn, now going to schedule in person visit for consultation regarding lipedema surgery. Wearing Bioflect, also using CzSalus micromassage 18-23 likes better due to higher level of compression feels more effective. Bandaging when not wearing compression garment until receives custom garment next Wednesday. Hopeful still to get pneumatic compression pump, doing trial with Flexitouch in PT today. PT-OP-F Manual Assessment Start: 03/23/23 14:26 Freq: Status: Active Protocol: Document 03/24/23 10:34 SAK (Rec: 03/24/23 16:55 [facility] [id number]) Manual Assessments Soft Tissue Assessment Soft Tissue Mobility Assessment Palpation of neva LE's reveals tenderness, multiple nodules throughout LE's. No warmth or redness, no pitting PT-OP-G Mobility & Gait Start: 03/23/23 14:26 Freq: Status: Active Protocol: Document 03/24/23 10:34 SAK (Rec: 03/24/23 16:55 [facility] [id number]) OP Gait Assessment Gait Gait Assistance Required: Independent Assistive Devices Assistive Device None Gait Deviations General Gait Pattern Decreased Stride Length, Decreased Feet Clearance Factors Limiting Gait Function Factors Limiting Gait Function Pain PT-OP-H Neuro Start: 03/23/23 14:26 Freq: Status: Active Protocol: Document 03/24/23 10:34 [facility] (Rec: 03/24/23 16:55 [facility] [id number]) Sensation Evaluation Gross Sensation Gross Sensation WNL PT-OP-K Range of Motion Start: 03/23/23 14:26 Freq: Status: Active Protocol: Document 03/24/23 10:34 [facility] (Rec: 03/24/23 16:55 [facility] [id number]) Hip Goniometric Range of Motion Hip Measured in Degrees neva Hip ROM WFL Yes Comments pain on right all motions Hip ROM Limitations Hip ROM Limitations Pain Knee Goniometric Range of Motion Knee Measured in Degrees Left Knee ROM WFL No Flexion Active (degrees) 100 Extension Active (degrees) 0 Right Knee ROM WFL No Flexion Active (degrees) 95 Extension Active (degrees) 0 Knee ROM Limitations Knee ROM Limitations Pain,Swelling Ankle and Foot Goniometric Range of Motion Ankle and Foot Measured in Degrees neva Ankle/Foot ROM WFL Yes PT-OP-M Strength Start: 03/23/23 14:26 Freq: Status: Active Protocol: Document 03/24/23 10:34 [facility] (Rec: 03/24/23 16:55 [facility] [id number]) Hip Strength Hip Manual Muscle Testing Right Flexion (L2) 4- Good- Extension (S1) 3+ Fair+ Abduction 3+ Fair+ Adduction 4- Good- External Rotation 3+ Fair+ Internal Rotation 4- Good- Comments pain all resisted motions Left Flexion (L2) 4+ Good+ Extension (S1) 4- Good- Abduction 4- Good- Adduction 4 Good External Rotation 4- Good- Internal Rotation 4 Good Knee Strength Knee Manual Muscle Testing Right Flexion (S2) 4- Good- Extension (L3) 4- Good- Comments pain right Left Flexion (S2) 4 Good Extension (L3) 4 Good PT-OP-N Lymphedema Start: 03/23/23 14:26 Freq: Status: Active Protocol: Document 05/12/23 10:25 [facility] (Rec: 05/12/23 11:07 [facility] [id number]) Lymphedema Measurements Lower Extremity Circumference Measurements Right Affected MT Heads 24.5 cm Mid-foot 23.8 cm Medial Malleolus 1.2 cm 10 cm From Medial Malleolus 37 cm 20 cm From Medial Malleolus 47.6 cm 30 cm From Medial Malleolus 53.5 cm 40 cm From Medial Malleolus 50.5 cm 50 cm From Medial Malleolus 54.9 cm 60 cm From Medial Malleolus 67.3 cm 70 cm From Medial Malleolus 77.9 cm 80 cm From Medial Malleolus 93.8 cm Knee Joint 50.9 cm - old pump Left Affected MT Heads 25.3 cm Mid-foot 26.3 cm Medial Malleolus 31.4 cm 10 cm From Medial Malleolus 36.1 cm 20 cm From Medial Malleolus 47.4 cm 30 cm From Medial Malleolus 54.7 cm 40 cm From Medial Malleolus 51.2 cm 50 cm From Medial Malleolus 59.9 cm 60 cm From Medial Malleolus 71 cm 70 cm From Medial Malleolus 77.9 cm 80 cm From Medial Malleolus 95 cm Knee Joint 53.1 cm - from ant ankle crease: widest hip 153.5 cm widest buttock: 146 cm PT-OP-Q Treatments Start: 03/23/23 14:26 Freq: Status: Active Protocol: Document 06/10/23 14:15 [facility] (Rec: 06/10/23 16:14 [facility] [id number]) Cardio Equipment Recumbent Stepper (Sci-Fit) Duration (Minutes) 15 Resistance 2.5-3.1 Seat Position 12 Other to facilitate lymphatic flow after MLD and bandaging neva LE 's Lymphedema Treatment Manual Lymphatic Drainage Comments Trial Flexitouch basic and Advanced pumps. Assessment of new off the shelf compression garment Lymphedema Wrapping Materials assisted patient in donning and providing instruction in self donning for compression pantyhose. Pt. demonstrated good understanding Sequential Lymphedema Exercises Comments patient continues independently including aquatic exercise Patient Education Compression Garments as above Self Manual Lymphatic Drainage Flexitouch trial PT-OP-T Assessment and Plan Start: 03/23/23 14:26 Freq: Status: Active Protocol: Document 06/10/23 14:15 [facility] (Rec: 06/10/23 16:14 [facility] [id number]) Physical Therapy Assessment Goals Three Impairment pain and limited ROM and strength neva knees Impairment limits ability to stand and walk in home and community Short Term Goal (STG) Patient to be instructed in lipedema management as well as land and aquatic-based ther ex for improvement of neva knee ROM and strength for improved function in the home and community. 04/26/23: goal met STG Duration goal met Legal Mediator Goal (LTG) Patient to demonstrate neva knee ROM WFL and strength at least 4+/5 and be able to stand and walk at least 30 min . LTG Duration 09/10/23 Two Impairment activity tolerance Impairment Lymphedema Life Impact Scale 56% Short Term Goal (STG) Decrease Lymphedema Life Impact Scale to no greater than 40% as measure of improved activity tolerance and quality of life. 04/26/23: goal met STG Duration goal met Legal Mediator Goal (LTG) Decrease Lymphedema Life Impact Scale to no greater than 20% as measure of improved activity tolerance and quality of life. 06/10/23: no further progress, feel will achieve once obtains custom compression and receives Flexitouch pump LTG Duration 09/10/23 One Impairment lipedema bilateral LE's Short Term Goal (STG) Patient will be instructed in all aspects of lipedema self- care to include skin care, self-massage, self-bandaging/ compression options, and lymphedema exercises. 04/26/23: goal met STG Duration goal met Mcfp Goal (LTG) Decrease patient?s lipedema to a stable level (no increase or decrease greater than 1 cm over the course of 1 week), patient to be independent with all aspects of self care as above for lipedema, and will obtain appropriate compression garment for lipedema management in the home. Consider home pneumatic compression pump for management of lipedema 06/10/23: good goal progress. Receiving custom garments next Wednesday, PT assisting patient in obtaining pneumatic compression pump LTG Duration 09/10/23 Assessment Summary Assessment Patient started PT for her lymphedema 03/24/23. Despite over 30 days of conserative complete decongestive therapy patient has difficulty with self-management of her lymphedema resulting from lipedema. Patient remains highly compliant to all aspects of self lymphedema care including elevation, skin care, manual lymphatic drainage, lymphedema exercises , and compression. Feel she would benefit highly from the use of a pneumatic compression pump in the home for lymphedema management. Pt. trialed the Entre basic pump in the clinic at low pressure for 15 min, measured at the hips pre treatment at 149 cm, after 15 min treatment, after treatment with basic pump measurement increased to 150 cm. Patient has significant pain associated with lipedema and the high static pressure from the basic pump could cause significant pain for her . Recommend patient receive the Flexitouch Advanced Pump which will better manage her symptoms of her lipolymphedema in a more comfortable sequential way. Physical Therapy Plan Frequency and Duration Frequency of Treatment 1 visit Duration of treatment (weeks) 12 Plan of Care Start Date 06/10/23 Plan of Care End Date 09/10/23 Therapeutic Interventions Therapeutic Interventions Home Exercise Program, Lymphedema Management,Manual Therapy,Patient/Caregiver Education,Self-Care/Home Management,Therapeutic Activities,Therapeutic Exercises Modalities Vasopneumatic Devices Next Visit Focus/Plan Next Note Type Treatment Note Next Visit Plan Follow-up appt to assess new compression garments, assure appropriate use of compression pump, take circumferential measurements, and do final review of HEP and self managment
--- NOTE | 2023-06-10 16:20 | PT.OPPOC ---
Physical, Occupational & Speech Therapy At [facility] Current Diagnoses Lymphedema, not elsewhere classified (06/10/23) Visit Care Team Role Provider Type Elina Johnson MD Attending Provider Physician Family Provider Primary Care Provider Referring Provider Specialty: Family Practice Address: [address] [place] [address], [id number] Fax: Email: [email or web address] Plan Of Care PT-OP-T Assessment and Plan Start: 03/23/23 14:26 Freq: Status: Active Protocol: Document 06/10/23 14:15 SAK (Rec: 06/10/23 16:14 SAK [id number]) Physical Therapy Assessment Goals Three Impairment pain and limited ROM and strength neva knees Impairment limits ability to stand and walk in home and community Short Term Goal (STG) Patient to be instructed in lipedema management as well as land and aquatic-based ther ex for improvement of neva knee ROM and strength for improved function in the home and community. 04/26/23: goal met STG Duration goal met It Compliance Manager Goal (LTG) Patient to demonstrate neva knee ROM WFL and strength at least 4+/5 and be able to stand and walk at least 30 min . LTG Duration 09/10/23 Two Impairment activity tolerance Impairment Lymphedema Life Impact Scale 56% Short Term Goal (STG) Decrease Lymphedema Life Impact Scale to no greater than 40% as measure of improved activity tolerance and quality of life. 04/26/23: goal met STG Duration goal met Custodial Goal (LTG) Decrease Lymphedema Life Impact Scale to no greater than 20% as measure of improved activity tolerance and quality of life. 06/10/23: no further progress, feel will achieve once obtains custom compression and receives Flexitouch pump LTG Duration 09/10/23 One Impairment lipedema bilateral LE's Short Term Goal (STG) Patient will be instructed in all aspects of lipedema self- care to include skin care, self-massage, self-bandaging/ compression options, and lymphedema exercises. 04/26/23: goal met STG Duration goal met It Compliance Manager Goal (LTG) Decrease patient?s lipedema to a stable level (no increase or decrease greater than 1 cm over the course of 1 week), patient to be independent with all aspects of self care as above for lipedema, and will obtain appropriate compression garment for lipedema management in the home. Consider home pneumatic compression pump for management of lipedema 06/10/23: good goal progress. Receiving custom garments next Wednesday, PT assisting patient in obtaining pneumatic compression pump LTG Duration 09/10/23 Assessment Summary Assessment Patient started PT for her lymphedema 03/24/23. Despite over 30 days of conserative complete decongestive therapy patient has difficulty with self-management of her lymphedema resulting from lipedema. Patient remains highly compliant to all aspects of self lymphedema care including elevation, skin care, manual lymphatic drainage, lymphedema exercises , and compression. Feel she would benefit highly from the use of a pneumatic compression pump in the home for lymphedema management. Pt. trialed the Entre basic pump in the clinic at low pressure for 15 min, measured at the hips pre treatment at 149 cm, after 15 min treatment, after treatment with basic pump measurement increased to 150 cm. Patient has significant pain associated with lipedema and the high static pressure from the basic pump could cause significant pain for her . Recommend patient receive the Flexitouch Advanced Pump which will better manage her symptoms of her lipolymphedema in a more comfortable sequential way. Physical Therapy Plan Frequency and Duration Frequency of Treatment 1 visit Duration of treatment (weeks) 12 Plan of Care Start Date 06/10/23 Plan of Care End Date 09/10/23 Therapeutic Interventions Therapeutic Interventions Home Exercise Program, Lymphedema Management,Manual Therapy,Patient/Caregiver Education,Self-Care/Home Management,Therapeutic Activities,Therapeutic Exercises Modalities Vasopneumatic Devices Next Visit Focus/Plan Next Note Type Treatment Note Next Visit Plan Follow-up appt to assess new compression garments, assure appropriate use of compression pump, take circumferential measurements, and do final review of HEP and self managment Plan of Care Dates Plan of Care Start Date 06/10/23 Plan of Care End Date 09/10/23 Electronically Signed by: Christelle Martinez, PT 06/10/23 1609 If you are in agreement with this Plan of Care, please return a signed and dated copy. I have reviewed this Plan of Care and certify that the skilled therapy services above are required to meet the patient?s needs. Physician Signature Date Printed Name and Credentials Clinical Instructor Signature Printed Name and Credentials
--- NOTE | 2023-07-15 16:50 | PT.OTN ---
Current Diagnoses Lymphedema, not elsewhere classified (07/15/23) Physical Therapy Treatment Note PT-OP-A Visit Information Start: 03/23/23 14:26 Freq: Status: Active Protocol: Document 07/15/23 09:05 [facility] (Rec: 07/15/23 09:16 [facility] [id number]) Out-Patient Physical Therapy Visit Information Visit Information Visit Type Treatment Note Visit Start Time 09:05 Visit Stop Time 10:30 Visit Number 11 Evaluation Information Evaluation Date 03/24/23 Precautions Precautions neva knee pain, right hip pain PT-OP-B Current Condition Start: 03/23/23 14:26 Freq: Status: Active Protocol: Document 06/10/23 14:15 SAK (Rec: 06/10/23 16:14 SAK [id number]) Current Condition History of Current Condition Onset Date 19 y/o Current Complaints LE swelling, newly diagnosed lipedema History of Current Condition Reports her physician diagnosed lipedema 3 months ago. States she thinks she has had since 19 y/o, got worse with and with time. Reports pain and easy bruising palpable nodular areas neva LE's. Put on hormone replacement therapy 1 year ago which was wrong hormone combination and has contributed to fatigue and decreased activity level, and some weight gain which has made lipedema worse. Recently stumbled and injured knees resulting in even more swelling, can't bend knees very well. Massage therapist helped her decrease the knee swelling some, but returns after massage session. Patient also reports having some right hip pain with no known cause. Has done some online research about lipidema . Has started walking in the local pool and experiences some pain relief. Hasn't tried any compression garments as not sure what to try. No other treatment for her lipedema. Patient is 4'10, 293 lbs. Prior Treatments and Tests Gastric sleeve surgery 13 years ago, having horrible acid reflux, may be having another procedure. Treatment Goals Patient/Caregiver Goals Decrease and be able to self- manage her lipedema including use of compression garments. Wsn't able to get to gym because closed due to weather. Realized her estrogen patch fell off and she had been feeling like she was in a lipedema flare, not sure how long it was off. Having pain in legs from walking on Wednesday, even with the support of bandages PT-OP-C Subjective Start: 03/23/23 14:26 Freq: Status: Active Protocol: Document 07/15/23 09:05 [facility] (Rec: 07/15/23 09:16 [facility] [id number]) OP-PT Subjective Patient Comments Patient Comments Has Flexitouch pump, didn't fit well, got expanders for waist and legs and is as good as it's going to get. Reports decreased pain with use of pump. Did virtual fitting. Uses every night x 1 hr, occasionally 2x/day. Relieves pain. Got compression garments last Wednesday, tend to slide down ( [employer] [facility]), consulted with the company. Has ordered glue to help hold the up. l5- 20 mm Hg compression level garments. Still not sure about surgery. PT-OP-F Manual Assessment Start: 03/23/23 14:26 Freq: Status: Active Protocol: Document 03/24/23 10:34 [facility] (Rec: 03/24/23 16:55 [facility] [id number]) Manual Assessments Soft Tissue Assessment Soft Tissue Mobility Assessment Palpation of neva LE's reveals tenderness, multiple nodules throughout LE's. No warmth or redness, no pitting PT-OP-G Mobility & Gait Start: 03/23/23 14:26 Freq: Status: Active Protocol: Document 03/24/23 10:34 [facility] (Rec: 03/24/23 16:55 [facility] [id number]) OP Gait Assessment Gait Gait Assistance Required: Independent Assistive Devices Assistive Device None Gait Deviations General Gait Pattern Decreased Stride Length, Decreased Feet Clearance Factors Limiting Gait Function Factors Limiting Gait Function Pain PT-OP-H Neuro Start: 03/23/23 14:26 Freq: Status: Active Protocol: Document 03/24/23 10:34 [facility] (Rec: 03/24/23 16:55 [facility] [id number]) Sensation Evaluation Gross Sensation Gross Sensation WNL PT-OP-K Range of Motion Start: 03/23/23 14:26 Freq: Status: Active Protocol: Document 03/24/23 10:34 [facility] (Rec: 03/24/23 16:55 [facility] [id number]) Hip Goniometric Range of Motion Hip neva Hip ROM WFL Yes Comments pain on right all motions Hip ROM Limitations Hip ROM Limitations Pain Knee Goniometric Range of Motion Knee Left Knee ROM WFL No Flexion Active (degrees) 100 Extension Active (degrees) 0 Right Knee ROM WFL No Flexion Active (degrees) 95 Extension Active (degrees) 0 Knee ROM Limitations Knee ROM Limitations Pain,Swelling Ankle and Foot Goniometric Range of Motion Ankle and Foot neva Ankle/Foot ROM WFL Yes PT-OP-M Strength Start: 03/23/23 14:26 Freq: Status: Active Protocol: Document 03/24/23 10:34 [facility] (Rec: 03/24/23 16:55 [facility] [id number]) Hip Strength Hip Manual Muscle Testing Right Flexion (L2) 4- Good- Extension (S1) 3+ Fair+ Abduction 3+ Fair+ Adduction 4- Good- External Rotation 3+ Fair+ Internal Rotation 4- Good- Comments pain all resisted motions Left Flexion (L2) 4+ Good+ Extension (S1) 4- Good- Abduction 4- Good- Adduction 4 Good External Rotation 4- Good- Internal Rotation 4 Good Knee Strength Knee Manual Muscle Testing Right Flexion (S2) 4- Good- Extension (L3) 4- Good- Comments pain right Left Flexion (S2) 4 Good Extension (L3) 4 Good PT-OP-N Lymphedema Start: 03/23/23 14:26 Freq: Status: Active Protocol: Document 07/15/23 09:05 [facility] (Rec: 07/15/23 09:38 [facility] [id number]) Lymphedema Measurements Lower Extremity Circumference Measurements Right Affected MT Heads 24.3 cm Mid-foot 24.6 cm Medial Malleolus 31 cm 10 cm From Medial Malleolus 37.3 cm 20 cm From Medial Malleolus 48.9 cm 30 cm From Medial Malleolus 53.7 cm 40 cm From Medial Malleolus 50.3 cm 50 cm From Medial Malleolus 55.7 cm 60 cm From Medial Malleolus 66.5 cm 70 cm From Medial Malleolus 74.8 cm 80 cm From Medial Malleolus 93.5 cm Knee Joint 53.3 cm Left Affected MT Heads 25.3 cm Mid-foot 26.7 cm Medial Malleolus 33 cm 10 cm From Medial Malleolus 39 cm 20 cm From Medial Malleolus 49 cm 30 cm From Medial Malleolus 54.8 cm 40 cm From Medial Malleolus 50.2 cm 50 cm From Medial Malleolus 60.9 cm 60 cm From Medial Malleolus 71 cm 70 cm From Medial Malleolus 76.9 cm 80 cm From Medial Malleolus 71.3 cm Knee Joint 53 cm PT-OP-Q Treatments Start: 03/23/23 14:26 Freq: Status: Active Protocol: Document 07/15/23 09:05 [facility] (Rec: 07/15/23 09:16 SAK [id number]) Cardio Equipment Recumbent Stepper (Sci-Fit) Duration (Minutes) 15 Resistance 2.5-3.1 Seat Position 12 Other to facilitate lymphatic flow after MLD and bandaging neva LE 's Lymphedema Treatment Manual Lymphatic Drainage Location bilateral LE's and abdomen Duration 45 Lymphedema Wrapping Body Location for neva LE's Materials Artiflex and Comprilan ankles to thighs as previously. Patient forgot shorts so wore Bioflect tights over bandaging to keep them up, will change at home. Sequential Lymphedema Exercises Comments patient continues independently including aquatic exercise as able. Patient Education Compression Garments patient problem solving sliding down PT-OP-T Assessment and Plan Start: 03/23/23 14:26 Freq: Status: Active Protocol: Document 07/15/23 09:05 [facility] (Rec: 07/15/23 09:16 [facility] [id number]) Physical Therapy Assessment Goals Three Impairment pain and limited ROM and strength neva knees Impairment limits ability to stand and walk in home and community Short Term Goal (STG) Patient to be instructed in lipedema management as well as land and aquatic-based ther ex for improvement of neva knee ROM and strength for improved function in the home and community. 04/26/23: goal met STG Duration goal met Nursing Home Goal (LTG) Patient to demonstrate neva knee ROM WFL and strength at least 4+/5 and be able to stand and walk at least 30 min . LTG Duration 09/10/23 Two Impairment activity tolerance Impairment Lymphedema Life Impact Scale 56% Short Term Goal (STG) Decrease Lymphedema Life Impact Scale to no greater than 40% as measure of improved activity tolerance and quality of life. 04/26/23: goal met STG Duration goal met Brokerage Purchase And Sale Clerk Goal (LTG) Decrease Lymphedema Life Impact Scale to no greater than 20% as measure of improved activity tolerance and quality of life. 06/10/23: no further progress, feel will achieve once obtains custom compression and receives Flexitouch pump LTG Duration 09/10/23 One Impairment lipedema bilateral LE's Short Term Goal (STG) Patient will be instructed in all aspects of lipedema self- care to include skin care, self-massage, self-bandaging/ compression options, and lymphedema exercises. 04/26/23: goal met STG Duration goal met Nursing Home Goal (LTG) Decrease patient?s lipedema to a stable level (no increase or decrease greater than 1 cm over the course of 1 week), patient to be independent with all aspects of self care as above for lipedema, and will obtain appropriate compression garment for lipedema management in the home. Consider home pneumatic compression pump for management of lipedema 06/10/23: good goal progress. Receiving custom garments next Wednesday, PT assisting patient in obtaining pneumatic compression pump LTG Duration 09/10/23 Assessment Summary Assessment Patient reporting benefit of decreased pain with use of Flexitouch pump. Circumferential measurements decreased proximally but increased lower legs. Patient reports not wearing compression at night, often too time and energy intensive to bandage at night. Feel she would benefit from night garments for pain relief and edema and fibrosis control at night. Has walked up to 2-2 1 /2 miles but reports even wearing compression the swelling and pain increases horribly, takes 2 days for it to go down. Difficulty getting new compression garment ([employer] Evarex CCL1) to not slide down and become uncomfortable, has ordered skin glue to assist. Physical Therapy Plan Frequency and Duration Frequency of Treatment 1 visit Duration of treatment (weeks) 12 Plan of Care Start Date 06/10/23 Plan of Care End Date 09/10/23 Therapeutic Interventions Therapeutic Interventions Home Exercise Program, Lymphedema Management,Manual Therapy,Patient/Caregiver Education,Self-Care/Home Management,Therapeutic Activities,Therapeutic Exercises Modalities Vasopneumatic Devices Next Visit Focus/Plan Next Note Type Treatment Note Next Visit Plan Follow-up appointment to continue problem solve compression garments as needed , continue monitor circumferential measurements due to inc lower legs today. Continue CDT as needed.
--- NOTE | 2023-12-20 08:11 | PT.OPPOC ---
Physical, Occupational & Speech Therapy At [facility] Current Diagnoses Lymphedema, not elsewhere classified (12/20/23) Visit Care Team Role Provider Type Elina Johnson MD Attending Provider Physician Family Provider Primary Care Provider Referring Provider Specialty: Family Practice Address: [address] [place] [address], [phone] Fax: Email: [email or web address] Plan Of Care PT-OP-B Current Condition Start: 03/23/23 14:26 Freq: Status: Active Protocol: Document 12/20/23 10:33 SAK (Rec: 12/20/23 10:49 [facility] [id number]) Current Condition History of Current Condition Onset Date 19 y/o Current Complaints LE swelling, newly diagnosed lipedema History of Current Condition Reports her physician diagnosed lipedema 3 months ago. States she thinks she has had since 19 y/o, got worse with and with time. Reports pain and easy bruising palpable nodular areas neva LE's. Put on hormone replacement therapy 1 year ago which was wrong hormone combination and has contributed to fatigue and decreased activity level, and some weight gain which has made lipedema worse. Recently stumbled and injured knees resulting in even more swelling, can't bend knees very well. Massage therapist helped her decrease the knee swelling some, but returns after massage session. Patient also reports having some right hip pain with no known cause. Has done some online research about lipidema . Has started walking in the local pool and experiences some pain relief. Hasn't tried any compression garments as not sure what to try. No other treatment for her lipedema. Patient is 4'10, 293 lbs. Prior Treatments and Tests Gastric sleeve surgery 13 years ago, having horrible acid reflux, may be having another procedure. PT-OP-T Assessment and Plan Start: 03/23/23 14:26 Freq: Status: Active Protocol: Document 12/20/23 10:33 SAK (Rec: 12/20/23 10:49 SAK [id number]) Physical Therapy Assessment Goals Three Impairment pain and limited ROM and strength neva knees Impairment limits ability to stand and walk in home and community Short Term Goal (STG) Patient to be instructed in lipedema management as well as land and aquatic-based ther ex for improvement of neva knee ROM and strength for improved function in the home and community. 04/26/23: goal met STG Duration goal met Worm Sorter Goal (LTG) Patient to demonstrate neva knee ROM WFL and strength at least 4+/5 and be able to stand and walk at least 30 min . 12/20/23: goal progress, knee ROM 0-105. Pain worst in right knee and in multiple painful nodules throughout her legs. LTG Duration 02/19/24 Two Impairment activity tolerance Impairment Lymphedema Life Impact Scale 56% Short Term Goal (STG) Decrease Lymphedema Life Impact Scale to no greater than 40% as measure of improved activity tolerance and quality of life. 04/26/23: goal met STG Duration goal met Detention Goal (LTG) Decrease Lymphedema Life Impact Scale to no greater than 20% as measure of improved activity tolerance and quality of life. 06/10/23: no further progress, feel will achieve once obtains custom compression and receives Flexitouch pump 12/20/23: good goal progress to 26%. LTG Duration 02/19/24 One Impairment lipedema bilateral LE's Short Term Goal (STG) Patient will be instructed in all aspects of lipedema self- care to include skin care, self-massage, self-bandaging/ compression options, and lymphedema exercises. 04/26/23: goal met STG Duration goal met Detention Goal (LTG) Decrease patient?s lipedema to a stable level (no increase or decrease greater than 1 cm over the course of 1 week), patient to be independent with all aspects of self care as above for lipedema, and will obtain appropriate compression garment for lipedema management in the home. Consider home pneumatic compression pump for management of lipedema 06/10/23: good goal progress. Receiving custom garments next Wednesday, PT assisting patient in obtaining pneumatic compression pump 12/20/23: has struggled with obtaining well fitting garments but now has. Had anticipated surgery by now but due to insurance challenges hasn't yet. Has some reduction in circumferential measurements most places neva LE's (not right knee), has potential for some further reduction. Struggles with pain right knee greater than left. LTG Duration 09/10/23 Assessment Summary Assessment Patient now has Flexitouch pump and uses consistently, and after much struggle with fitter has been fit with well fitting pantyhose style compression garment. Has not fully met pain, ROM, and strength goals. Recommend further emphasis on this as part of lipedema management. She has potential for further improvement toward fully reaching her goals with physical therapy Physical Therapy Plan Frequency and Duration Frequency of Treatment Every Other Week Duration of treatment (weeks) 8 Plan of Care Start Date 12/20/23 Plan of Care End Date 09/10/23 Therapeutic Interventions Therapeutic Interventions Home Exercise Program, Lymphedema Management,Manual Therapy,Patient/Caregiver Education,Self-Care/Home Management,Therapeutic Activities,Therapeutic Exercises Modalities Vasopneumatic Devices Next Visit Focus/Plan Next Note Type Treatment Note Next Visit Plan Continue complete decongestive therapy, ROM and strengthening to help patient fully achieve her PT goals. Plan of Care Dates Plan of Care Start Date 12/20/23 Plan of Care End Date 09/10/23 Electronically Signed by: Christelle Martinez, PT 12/22/23 0811 If you are in agreement with this Plan of Care, please return a signed and dated copy. I have reviewed this Plan of Care and certify that the skilled therapy services above are required to meet the patient?s needs. Physician Signature Date Printed Name and Credentials Clinical Instructor Signature Printed Name and Credentials
--- NOTE | 2023-12-20 10:53 | PT.OTRE ---
Current Diagnoses Lymphedema, not elsewhere classified (12/20/23) Past Medical History (Last Reviewed 08/03/23 @ 10:54 by Johnny Kim MD) Asthma exacerbation Menopausal symptoms Morbid (severe) obesity due to excess calories Pneumonia Recurrent HSV (herpes simplex virus) Surgical History (Last Reviewed 08/03/23 @ 10:54 by Johnny Kim MD) History of bariatric surgery Visit Care Team Role Provider Type Elina Johnson MD Attending Provider Physician Family Provider Primary Care Provider Referring Provider Specialty: Family Practice Address: [address] [place] [address], [facility] Email: [email or web address] Physical Therapy Re-Evaluation PT-OP-A Visit Information Start: 03/23/23 14:26 Freq: Status: Active Protocol: Document 12/20/23 10:33 SAK (Rec: 12/20/23 10:49 SAK [id number]) Out-Patient Physical Therapy Visit Information Visit Information Visit Type Re-Evaluation Visit Start Time 10:33 Visit Stop Time 12:00 Visit Number 12 Evaluation Information Evaluation Date 03/24/23 Precautions Precautions neva knee pain, right hip pain PT-OP-B Current Condition Start: 03/23/23 14:26 Freq: Status: Active Protocol: Document 12/20/23 10:33 SAK (Rec: 12/20/23 10:49 SAK [id number]) Current Condition History of Current Condition Onset Date 19 y/o Current Complaints LE swelling, newly diagnosed lipedema History of Current Condition Reports her physician diagnosed lipedema 3 months ago. States she thinks she has had since 19 y/o, got worse with and with time. Reports pain and easy bruising palpable nodular areas neva LE's. Put on hormone replacement therapy 1 year ago which was wrong hormone combination and has contributed to fatigue and decreased activity level, and some weight gain which has made lipedema worse. Recently stumbled and injured knees resulting in even more swelling, can't bend knees very well. Massage therapist helped her decrease the knee swelling some, but returns after massage session. Patient also reports having some right hip pain with no known cause. Has done some online research about lipidema . Has started walking in the local pool and experiences some pain relief. Hasn't tried any compression garments as not sure what to try. No other treatment for her lipedema. Patient is 4'10, 293 lbs. Prior Treatments and Tests Gastric sleeve surgery 13 years ago, having horrible acid reflux, may be having another procedure. PT-OP-C Subjective Start: 03/23/23 14:26 Freq: Status: Active Protocol: Document 12/20/23 10:33 SAK (Rec: 12/20/23 10:49 [facility] [id number]) OP-PT Subjective Patient Comments Patient Comments Has compression tights (custom [employer] CC1); tried flat knit first, kept falling down, couldn't get them to work. [facility] in [place] initially but not able to get them right fit. 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 Using Flexitouch pump most every day. Did swell more during the heat of summer . Hasn't been able to go to a pool due to working 5 days per week. Now not working as many hours and is going to try to get into the pool. [facility] but then offered less than full fee and Dr. Caba wouldn't accept offer from [facility] (this happened on Wednesday). He is booking out 6 months. Now has put in a request for consult with Dr. Alvarez in [place] but is also going to call Dr. Caba' s office tomorrow when they are open to discuss. PT-OP-F Manual Assessment Start: 03/23/23 14:26 Freq: Status: Active Protocol: Document 03/24/23 10:34 SAK (Rec: 03/24/23 16:55 [facility] [id number]) Manual Assessments Soft Tissue Assessment Soft Tissue Mobility Assessment Palpation of neva LE's reveals tenderness, multiple nodules throughout LE's. No warmth or redness, no pitting PT-OP-G Mobility & Gait Start: 03/23/23 14:26 Freq: Status: Active Protocol: Document 03/24/23 10:34 SAK (Rec: 03/24/23 16:55 [facility] [id number]) OP Gait Assessment Gait Gait Assistance Required: Independent Assistive Devices Assistive Device None Gait Deviations General Gait Pattern Decreased Stride Length, Decreased Feet Clearance Factors Limiting Gait Function Factors Limiting Gait Function Pain PT-OP-H Neuro Start: 03/23/23 14:26 Freq: Status: Active Protocol: Document 03/24/23 10:34 SAK (Rec: 03/24/23 16:55 [facility] [id number]) Sensation Evaluation Gross Sensation Gross Sensation WNL PT-OP-K Range of Motion Start: 03/23/23 14:26 Freq: Status: Active Protocol: Document 03/24/23 10:34 SAK (Rec: 03/24/23 16:55 [facility] [id number]) Hip Goniometric Range of Motion Hip Measured in Degrees neva Hip ROM WFL Yes Comments pain on right all motions Hip ROM Limitations Hip ROM Limitations Pain Knee Goniometric Range of Motion Knee Measured in Degrees Left Knee ROM WFL No Flexion Active (degrees) 100 Extension Active (degrees) 0 Right Knee ROM WFL No Flexion Active (degrees) 95 Extension Active (degrees) 0 Knee ROM Limitations Knee ROM Limitations Pain,Swelling Ankle and Foot Goniometric Range of Motion Ankle and Foot Measured in Degrees neva Ankle/Foot ROM WFL Yes PT-OP-M Strength Start: 03/23/23 14:26 Freq: Status: Active Protocol: Document 03/24/23 10:34 [facility] (Rec: 03/24/23 16:55 [facility] [id number]) Hip Strength Hip Manual Muscle Testing Right Flexion (L2) 4- Good- Extension (S1) 3+ Fair+ Abduction 3+ Fair+ Adduction 4- Good- External Rotation 3+ Fair+ Internal Rotation 4- Good- Comments pain all resisted motions Left Flexion (L2) 4+ Good+ Extension (S1) 4- Good- Abduction 4- Good- Adduction 4 Good External Rotation 4- Good- Internal Rotation 4 Good Knee Strength Knee Manual Muscle Testing Right Flexion (S2) 4- Good- Extension (L3) 4- Good- Comments pain right Left Flexion (S2) 4 Good Extension (L3) 4 Good PT-OP-N Lymphedema Start: 03/23/23 14:26 Freq: Status: Active Protocol: Document 12/20/23 10:33 SAK (Rec: 12/20/23 11:10 [facility] [id number]) Lymphedema Measurements Lower Extremity Circumference Measurements Right Affected MT Heads 23.9 cm Mid-foot 24.3 cm Medial Malleolus 30.7 cm 10 cm From Medial Malleolus 36.7 cm 20 cm From Medial Malleolus 48.9 cm 30 cm From Medial Malleolus 53.3 cm 40 cm From Medial Malleolus 49.8 cm 50 cm From Medial Malleolus 56.6 cm 60 cm From Medial Malleolus 66 cm 70 cm From Medial Malleolus 76 cm 80 cm From Medial Malleolus 91.5 cm Knee Joint 52 cm Left Affected MT Heads 24.8 cm Mid-foot 25.5 cm Medial Malleolus 31.3 cm 10 cm From Medial Malleolus 36.8 cm 20 cm From Medial Malleolus 48.6 cm 30 cm From Medial Malleolus 54.5 cm 40 cm From Medial Malleolus 51 cm 50 cm From Medial Malleolus 60 cm 60 cm From Medial Malleolus 67.4 cm 70 cm From Medial Malleolus 75 cm 80 cm From Medial Malleolus 92 cm Knee Joint 55 cm PT-OP-Q Treatments Start: 03/23/23 14:26 Freq: Status: Active Protocol: Document 12/20/23 10:33 [facility] (Rec: 12/20/23 11:10 [facility] [id number]) Lymphedema Treatment Manual Lymphatic Drainage Location bilateral LE's and abdomen Duration 45 Comments review technique during session Lymphedema Wrapping Body Location for neva LE's Materials Patient wearing [employer] garment, good fit observed Sequential Lymphedema Exercises Comments patient continues independently, will start aquatic exercise this week. Compression Garment Assessment Compression Garment Assessment Details good fit [employer] garment, able to don independently Patient Education Compression Garments patient problem solving sliding down PT-OP-T Assessment and Plan Start: 03/23/23 14:26 Freq: Status: Active Protocol: Document 12/20/23 10:33 [facility] (Rec: 12/20/23 10:49 [facility] [id number]) Physical Therapy Assessment Goals Three Impairment pain and limited ROM and strength neva knees Impairment limits ability to stand and walk in home and community Short Term Goal (STG) Patient to be instructed in lipedema management as well as land and aquatic-based ther ex for improvement of neva knee ROM and strength for improved function in the home and community. 04/26/23: goal met STG Duration goal met Care Home Goal (LTG) Patient to demonstrate neva knee ROM WFL and strength at least 4+/5 and be able to stand and walk at least 30 min . 12/20/23: goal progress, knee ROM 0-105. Pain worst in right knee and in multiple painful nodules throughout her legs. LTG Duration 02/19/24 Two Impairment activity tolerance Impairment Lymphedema Life Impact Scale 56% Short Term Goal (STG) Decrease Lymphedema Life Impact Scale to no greater than 40% as measure of improved activity tolerance and quality of life. 04/26/23: goal met STG Duration goal met Label Designer Goal (LTG) Decrease Lymphedema Life Impact Scale to no greater than 20% as measure of improved activity tolerance and quality of life. 06/10/23: no further progress, feel will achieve once obtains custom compression and receives Flexitouch pump 12/20/23: good goal progress to 26%. LTG Duration 02/19/24 One Impairment lipedema bilateral LE's Short Term Goal (STG) Patient will be instructed in all aspects of lipedema self- care to include skin care, self-massage, self-bandaging/ compression options, and lymphedema exercises. 04/26/23: goal met STG Duration goal met Label Designer Goal (LTG) Decrease patient?s lipedema to a stable level (no increase or decrease greater than 1 cm over the course of 1 week), patient to be independent with all aspects of self care as above for lipedema, and will obtain appropriate compression garment for lipedema management in the home. Consider home pneumatic compression pump for management of lipedema 06/10/23: good goal progress. Receiving custom garments next Wednesday, PT assisting patient in obtaining pneumatic compression pump 12/20/23: has struggled with obtaining well fitting garments but now has. Had anticipated surgery by now but due to insurance challenges hasn't yet. Has some reduction in circumferential measurements most places neva LE's (not right knee), has potential for some further reduction. Struggles with pain right knee greater than left. LTG Duration 09/10/23 Assessment Summary Assessment Patient now has Flexitouch pump and uses consistently, and after much struggle with fitter has been fit with well fitting pantyhose style compression garment. Has not fully met pain, ROM, and strength goals. Recommend further emphasis on this as part of lipedema management. She has potential for further improvement toward fully reaching her goals with physical therapy Physical Therapy Plan Frequency and Duration Frequency of Treatment Every Other Week Duration of treatment (weeks) 8 Plan of Care Start Date 12/20/23 Plan of Care End Date 03/11/24 Therapeutic Interventions Therapeutic Interventions Home Exercise Program, Lymphedema Management,Manual Therapy,Patient/Caregiver Education,Self-Care/Home Management,Therapeutic Activities,Therapeutic Exercises Modalities Vasopneumatic Devices Next Visit Focus/Plan Next Note Type Treatment Note Next Visit Plan Continue complete decongestive therapy, ROM and strengthening to help patient fully achieve her PT goals.
--- NOTE | 2023-12-22 08:11 | PT.OTRE ---
Current Diagnoses Lymphedema, not elsewhere classified (12/20/23) Past Medical History (Last Reviewed 08/03/23 @ 10:54 by Johnny Kim MD) Asthma exacerbation Menopausal symptoms Morbid (severe) obesity due to excess calories Pneumonia Recurrent HSV (herpes simplex virus) Surgical History (Last Reviewed 08/03/23 @ 10:54 by Johnny Kim MD) History of bariatric surgery Visit Care Team Role Provider Type Elina Johnson MD Attending Provider Physician Family Provider Primary Care Provider Referring Provider Specialty: Family [facility] Address: [address] [place] [address], [facility] Fax: Email: [email or web address] Physical Therapy Re-Evaluation PT-OP-A Visit Information Start: 03/23/23 14:26 Freq: Status: Active Protocol: Document 12/20/23 10:33 SAK (Rec: 12/20/23 10:49 SAK [id number]) Out-Patient Physical Therapy Visit Information Visit Information Visit Type Re-Evaluation Visit Start Time 10:33 Visit Stop Time 12:00 Visit Number 12 Evaluation Information Evaluation Date 03/24/23 Precautions Precautions neva knee pain, right hip pain PT-OP-B Current Condition Start: 03/23/23 14:26 Freq: Status: Active Protocol: Document 12/20/23 10:33 SAK (Rec: 12/20/23 10:49 SAK [id number]) Current Condition History of Current Condition Onset Date 19 y/o Current Complaints LE swelling, newly diagnosed lipedema History of Current Condition Reports her physician diagnosed lipedema 3 months ago. States she thinks she has had since 19 y/o, got worse with and with time. Reports pain and easy bruising palpable nodular areas neva LE's. Put on hormone replacement therapy 1 year ago which was wrong hormone combination and has contributed to fatigue and decreased activity level, and some weight gain which has made lipedema worse. Recently stumbled and injured knees resulting in even more swelling, can't bend knees very well. Massage therapist helped her decrease the knee swelling some, but returns after massage session. Patient also reports having some right hip pain with no known cause. Has done some online research about lipidema . Has started walking in the local pool and experiences some pain relief. Hasn't tried any compression garments as not sure what to try. No other treatment for her lipedema. Patient is 4'10, 293 lbs. Prior Treatments and Tests Gastric sleeve surgery 13 years ago, having horrible acid reflux, may be having another procedure. PT-OP-C Subjective Start: 03/23/23 14:26 Freq: Status: Active Protocol: Document 12/20/23 10:33 SAK (Rec: 12/20/23 10:49 [facility] [id number]) OP-PT Subjective Patient Comments Patient Comments Has compression tights (custom [employer] CC1); tried flat knit first, kept falling down, couldn't get them to work. [facility] in [place] initially but not able to get them right fit. 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 Using Flexitouch pump most every day. Did swell more during the heat of summer . Hasn't been able to go to a pool due to working 5 days per week. Now not working as many hours and is going to try to get into the pool. [facility] approved lipedema surgery but then offered less than full fee and Dr. Caba wouldn't accept offer from [employer] (this happened on Wednesday). He is booking out 6 months. Now has put in a request for consult with Dr. Alvarez in [place] but is also going to call Dr. Caba' s office tomorrow when they are open to discuss. PT-OP-F Manual Assessment Start: 03/23/23 14:26 Freq: Status: Active Protocol: Document 03/24/23 10:34 SAK (Rec: 03/24/23 16:55 [facility] [id number]) Manual Assessments Soft Tissue Assessment Soft Tissue Mobility Assessment Palpation of neva LE's reveals tenderness, multiple nodules throughout LE's. No warmth or redness, no pitting PT-OP-G Mobility & Gait Start: 03/23/23 14:26 Freq: Status: Active Protocol: Document 03/24/23 10:34 SAK (Rec: 03/24/23 16:55 [facility] [id number]) OP Gait Assessment Gait Gait Assistance Required: Independent Assistive Devices Assistive Device None Gait Deviations General Gait Pattern Decreased Stride Length, Decreased Feet Clearance Factors Limiting Gait Function Factors Limiting Gait Function Pain PT-OP-H Neuro Start: 03/23/23 14:26 Freq: Status: Active Protocol: Document 03/24/23 10:34 [facility] (Rec: 03/24/23 16:55 [facility] [id number]) Sensation Evaluation Gross Sensation Gross Sensation WNL PT-OP-K Range of Motion Start: 03/23/23 14:26 Freq: Status: Active Protocol: Document 03/24/23 10:34 [facility] (Rec: 03/24/23 16:55 [facility] [id number]) Hip Goniometric Range of Motion Hip Measured in Degrees neva Hip ROM WFL Yes Comments pain on right all motions Hip ROM Limitations Hip ROM Limitations Pain Knee Goniometric Range of Motion Knee Measured in Degrees Left Knee ROM WFL No Flexion Active (degrees) 100 Extension Active (degrees) 0 Right Knee ROM WFL No Flexion Active (degrees) 95 Extension Active (degrees) 0 Knee ROM Limitations Knee ROM Limitations Pain,Swelling Ankle and Foot Goniometric Range of Motion Ankle and Foot Measured in Degrees neva Ankle/Foot ROM WFL Yes PT-OP-M Strength Start: 03/23/23 14:26 Freq: Status: Active Protocol: Document 03/24/23 10:34 [facility] (Rec: 03/24/23 16:55 [facility] [id number]) Hip Strength Hip Manual Muscle Testing Right Flexion (L2) 4- Good- Extension (S1) 3+ Fair+ Abduction 3+ Fair+ Adduction 4- Good- External Rotation 3+ Fair+ Internal Rotation 4- Good- Comments pain all resisted motions Left Flexion (L2) 4+ Good+ Extension (S1) 4- Good- Abduction 4- Good- Adduction 4 Good External Rotation 4- Good- Internal Rotation 4 Good Knee Strength Knee Manual Muscle Testing Right Flexion (S2) 4- Good- Extension (L3) 4- Good- Comments pain right Left Flexion (S2) 4 Good Extension (L3) 4 Good PT-OP-N Lymphedema Start: 03/23/23 14:26 Freq: Status: Active Protocol: Document 12/20/23 10:33 [facility] (Rec: 12/20/23 11:10 [facility] [id number]) Lymphedema Measurements Lower Extremity Circumference Measurements Right Affected MT Heads 23.9 cm Mid-foot 24.3 cm Medial Malleolus 30.7 cm 10 cm From Medial Malleolus 36.7 cm 20 cm From Medial Malleolus 48.9 cm 30 cm From Medial Malleolus 53.3 cm 40 cm From Medial Malleolus 49.8 cm 50 cm From Medial Malleolus 56.6 cm 60 cm From Medial Malleolus 66 cm 70 cm From Medial Malleolus 76 cm 80 cm From Medial Malleolus 91.5 cm Knee Joint 52 cm Left Affected MT Heads 24.8 cm Mid-foot 25.5 cm Medial Malleolus 31.3 cm 10 cm From Medial Malleolus 36.8 cm 20 cm From Medial Malleolus 48.6 cm 30 cm From Medial Malleolus 54.5 cm 40 cm From Medial Malleolus 51 cm 50 cm From Medial Malleolus 60 cm 60 cm From Medial Malleolus 67.4 cm 70 cm From Medial Malleolus 75 cm 80 cm From Medial Malleolus 92 cm Knee Joint 55 cm PT-OP-Q Treatments Start: 03/23/23 14:26 Freq: Status: Active Protocol: Document 12/20/23 10:33 JODY (Rec: 12/20/23 11:10 [facility] [id number]) Lymphedema Treatment Manual Lymphatic Drainage Location bilateral LE's and abdomen Duration 45 Comments review technique during session Lymphedema Wrapping Body Location for neva LE's Materials Patient wearing [employer] garment, good fit observed Sequential Lymphedema Exercises Comments patient continues independently, will start aquatic exercise this week. Compression Garment Assessment Compression Garment Assessment Details good fit [employer] garment, able to don independently Patient Education Compression Garments patient problem solving sliding down PT-OP-T Assessment and Plan Start: 03/23/23 14:26 Freq: Status: Active Protocol: Document 12/20/23 10:33 JODY (Rec: 12/20/23 10:49 [facility] [id number]) Physical Therapy Assessment Goals Three Impairment pain and limited ROM and strength neva knees Impairment limits ability to stand and walk in home and community Short Term Goal (STG) Patient to be instructed in lipedema management as well as land and aquatic-based ther ex for improvement of neva knee ROM and strength for improved function in the home and community. 04/26/23: goal met STG Duration goal met Quality Control Head Goal (LTG) Patient to demonstrate neva knee ROM WFL and strength at least 4+/5 and be able to stand and walk at least 30 min . 12/20/23: goal progress, knee ROM 0-105. Pain worst in right knee and in multiple painful nodules throughout her legs. LTG Duration 02/19/24 Two Impairment activity tolerance Impairment Lymphedema Life Impact Scale 56% Short Term Goal (STG) Decrease Lymphedema Life Impact Scale to no greater than 40% as measure of improved activity tolerance and quality of life. 04/26/23: goal met STG Duration goal met Quality Control Head Goal (LTG) Decrease Lymphedema Life Impact Scale to no greater than 20% as measure of improved activity tolerance and quality of life. 06/10/23: no further progress, feel will achieve once obtains custom compression and receives Flexitouch pump 12/20/23: good goal progress to 26%. LTG Duration 02/19/24 One Impairment lipedema bilateral LE's Short Term Goal (STG) Patient will be instructed in all aspects of lipedema self- care to include skin care, self-massage, self-bandaging/ compression options, and lymphedema exercises. 04/26/23: goal met STG Duration goal met Skilled Nursing Goal (LTG) Decrease patient?s lipedema to a stable level (no increase or decrease greater than 1 cm over the course of 1 week), patient to be independent with all aspects of self care as above for lipedema, and will obtain appropriate compression garment for lipedema management in the home. Consider home pneumatic compression pump for management of lipedema 06/10/23: good goal progress. Receiving custom garments next Wednesday, PT assisting patient in obtaining pneumatic compression pump 12/20/23: has struggled with obtaining well fitting garments but now has. Had anticipated surgery by now but due to insurance challenges hasn't yet. Has some reduction in circumferential measurements most places neva LE's (not right knee), has potential for some further reduction. Struggles with pain right knee greater than left. LTG Duration 09/10/23 Assessment Summary Assessment Patient now has Flexitouch pump and uses consistently, and after much struggle with fitter has been fit with well fitting pantyhose style compression garment. Has not fully met pain, ROM, and strength goals. Recommend further emphasis on this as part of lipedema management. She has potential for further improvement toward fully reaching her goals with physical therapy Physical Therapy Plan Frequency and Duration Frequency of Treatment Every Other Week Duration of treatment (weeks) 8 Plan of Care Start Date 12/20/23 Plan of Care End Date 09/10/23 Therapeutic Interventions Therapeutic Interventions Home Exercise Program, Lymphedema Management,Manual Therapy,Patient/Caregiver Education,Self-Care/Home Management,Therapeutic Activities,Therapeutic Exercises Modalities Vasopneumatic Devices Next Visit Focus/Plan Next Note Type Treatment Note Next Visit Plan Continue complete decongestive therapy, ROM and strengthening to help patient fully achieve her PT goals.
--- NOTE | 2024-01-03 14:24 | PT.OTN ---
Current Diagnoses Lymphedema, not elsewhere classified (01/03/24) Physical Therapy Treatment Note PT-OP-A Visit Information Start: 03/23/23 14:26 Freq: Status: Active Protocol: Document 01/03/24 13:00 [facility] (Rec: 01/03/24 13: [facility] [id number]) Out-Patient Physical Therapy Visit Information Visit Information Visit Type Treatment Note Visit Start Time 13:01 Visit Stop Time 14:16 Visit Number 13 Evaluation Information Evaluation Date 03/24/23 Precautions Precautions neva knee pain, right hip pain PT-OP-B Current Condition Start: 03/23/23 14:26 Freq: Status: Active Protocol: Document 01/03/24 13:00 [facility] (Rec: 01/03/24 13: [facility] [id number]) Current Condition History of Current Condition Onset Date 19 y/o Current Complaints LE swelling, newly diagnosed lipedema History of Current Condition Reports her physician diagnosed lipedema 3 months ago. States she thinks she has had since 19 y/o, got worse with and with time. Reports pain and easy bruising palpable nodular areas neva LE's. Put on hormone replacement therapy 1 year ago which was wrong hormone combination and has contributed to fatigue and decreased activity level, and some weight gain which has made lipedema worse. Recently stumbled and injured knees resulting in even more swelling, can't bend knees very well. Massage therapist helped her decrease the knee swelling some, but returns after massage session. Patient also reports having some right hip pain with no known cause. Has done some online research about lipidema . Has started walking in the local pool and experiences some pain relief. Hasn't tried any compression garments as not sure what to try. No other treatment for her lipedema. Patient is 4'10, 293 lbs. Prior Treatments and Tests Gastric sleeve surgery 13 years ago, having horrible acid reflux, may be having another procedure. PT-OP-C Subjective Start: 03/23/23 14:26 Freq: Status: Active Protocol: Document 01/03/24 13:00 [facility] (Rec: 01/03/24 13:24 [facility] [id number]) OP-PT Subjective Patient Comments Patient Comments If you don't use the compression you feel it, I have to use the compression daily. 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 Now going to see Dr. Schuler in [place] with Dr. Alvarez. Has been approved with her insurance. Consult is Nov online. Feels measurements stable. PT-OP-F Manual Assessment Start: 03/23/23 14:26 Freq: Status: Active Protocol: Document 03/24/23 10:34 SAK (Rec: 03/24/23 16:55 [facility] [id number]) Manual Assessments Soft Tissue Assessment Soft Tissue Mobility Assessment Palpation of neva LE's reveals tenderness, multiple nodules throughout LE's. No warmth or redness, no pitting PT-OP-G Mobility & Gait Start: 03/23/23 14:26 Freq: Status: Active Protocol: Document 03/24/23 10:34 SAK (Rec: 03/24/23 16:55 [facility] [id number]) OP Gait Assessment Gait Gait Assistance Required: Independent Assistive Devices Assistive Device None Gait Deviations General Gait Pattern Decreased Stride Length, Decreased Feet Clearance Factors Limiting Gait Function Factors Limiting Gait Function Pain PT-OP-H Neuro Start: 03/23/23 14:26 Freq: Status: Active Protocol: Document 03/24/23 10:34 SAK (Rec: 03/24/23 16:55 [facility] [id number]) Sensation Evaluation Gross Sensation Gross Sensation WNL PT-OP-K Range of Motion Start: 03/23/23 14:26 Freq: Status: Active Protocol: Document 03/24/23 10:34 SAK (Rec: 03/24/23 16:55 [facility] [id number]) Hip Goniometric Range of Motion Hip neva Hip ROM WFL Yes Comments pain on right all motions Hip ROM Limitations Hip ROM Limitations Pain Knee Goniometric Range of Motion Knee Left Knee ROM WFL No Flexion Active (degrees) 100 Extension Active (degrees) 0 Right Knee ROM WFL No Flexion Active (degrees) 95 Extension Active (degrees) 0 Knee ROM Limitations Knee ROM Limitations Pain,Swelling Ankle and Foot Goniometric Range of Motion Ankle and Foot neva Ankle/Foot ROM WFL Yes PT-OP-M Strength Start: 03/23/23 14:26 Freq: Status: Active Protocol: Document 03/24/23 10:34 SAK (Rec: 03/24/23 16:55 [facility] [id number]) Hip Strength Hip Manual Muscle Testing Right Flexion (L2) 4- Good- Extension (S1) 3+ Fair+ Abduction 3+ Fair+ Adduction 4- Good- External Rotation 3+ Fair+ Internal Rotation 4- Good- Comments pain all resisted motions Left Flexion (L2) 4+ Good+ Extension (S1) 4- Good- Abduction 4- Good- Adduction 4 Good External Rotation 4- Good- Internal Rotation 4 Good Knee Strength Knee Manual Muscle Testing Right Flexion (S2) 4- Good- Extension (L3) 4- Good- Comments pain right Left Flexion (S2) 4 Good Extension (L3) 4 Good PT-OP-N Lymphedema Start: 03/23/23 14:26 Freq: Status: Active Protocol: Document 01/03/24 13:00 [facility] (Rec: 01/03/24 13:24 [facility] [id number]) Lymphedema Measurements Lower Extremity Circumference Measurements Right Affected MT Heads 24.3 cm Mid-foot 24.7 cm Medial Malleolus 30.8 cm 10 cm From Medial Malleolus 38.3 cm 20 cm From Medial Malleolus 49.2 cm 30 cm From Medial Malleolus 53.4 cm 40 cm From Medial Malleolus 51.8 cm 50 cm From Medial Malleolus 55.5 cm 60 cm From Medial Malleolus 65 cm 70 cm From Medial Malleolus 74.8 cm 80 cm From Medial Malleolus 92.8 cm Knee Joint 52.1 cm Left Affected MT Heads 25 cm Mid-foot 25.3 cm Medial Malleolus 32.2 cm 10 cm From Medial Malleolus 38.3 cm 20 cm From Medial Malleolus 48.2 cm 30 cm From Medial Malleolus 54.6 cm 40 cm From Medial Malleolus 50.3 cm 50 cm From Medial Malleolus 58.2 cm 60 cm From Medial Malleolus 67.3 cm 70 cm From Medial Malleolus 73 cm 80 cm From Medial Malleolus 93.8 cm Knee Joint 53 cm PT-OP-Q Treatments Start: 03/23/23 14:26 Freq: Status: Active Protocol: Document 01/03/24 13:00 [facility] (Rec: 01/03/24 14:21 [facility] [id number]) Lymphedema Treatment Manual Lymphatic Drainage Location bilateral LE's, hips, buttocks , and abdomen Duration 60 Comments review technique during session Lymphedema Wrapping Materials Patient wearing [employer] garment, good fit observed Sequential Lymphedema Exercises Comments patient continues independently, still hasn't been able to do aquatic exercise due to work schedule, that will end this week. Compression Garment Assessment Compression Garment Assessment Details good fit [employer] garment, able to don independently Patient Education Other consistent aquatic exercise recommended. PT-OP-T Assessment and Plan Start: 03/23/23 14:26 Freq: Status: Active Protocol: Document 01/03/24 13:00 [facility] (Rec: 01/03/24 13:24 [facility] [id number]) Physical Therapy Assessment Goals Three Impairment pain and limited ROM and strength neva knees Impairment limits ability to stand and walk in home and community Short Term Goal (STG) Patient to be instructed in lipedema management as well as land and aquatic-based ther ex for improvement of neva knee ROM and strength for improved function in the home and community. 04/26/23: goal met STG Duration goal met Skilled Nursing Goal (LTG) Patient to demonstrate neva knee ROM WFL and strength at least 4+/5 and be able to stand and walk at least 30 min . 12/20/23: goal progress, knee ROM 0-105. Pain worst in right knee and in multiple painful nodules throughout her legs. LTG Duration 02/19/24 Two Impairment activity tolerance Impairment Lymphedema Life Impact Scale 56% Short Term Goal (STG) Decrease Lymphedema Life Impact Scale to no greater than 40% as measure of improved activity tolerance and quality of life. 04/26/23: goal met STG Duration goal met Waste Management Engineer Goal (LTG) Decrease Lymphedema Life Impact Scale to no greater than 20% as measure of improved activity tolerance and quality of life. 06/10/23: no further progress, feel will achieve once obtains custom compression and receives Flexitouch pump 12/20/23: good goal progress to 26%. LTG Duration 02/19/24 One Impairment lipedema bilateral LE's Short Term Goal (STG) Patient will be instructed in all aspects of lipedema self- care to include skin care, self-massage, self-bandaging/ compression options, and lymphedema exercises. 04/26/23: goal met STG Duration goal met Skilled Nursing Goal (LTG) Decrease patient?s lipedema to a stable level (no increase or decrease greater than 1 cm over the course of 1 week), patient to be independent with all aspects of self care as above for lipedema, and will obtain appropriate compression garment for lipedema management in the home. Consider home pneumatic compression pump for management of lipedema 06/10/23: good goal progress. Receiving custom garments next Wednesday, PT assisting patient in obtaining pneumatic compression pump 12/20/23: has struggled with obtaining well fitting garments but now has. Had anticipated surgery by now but due to insurance challenges hasn't yet. Has some reduction in circumferential measurements most places neva LE's (not right knee), has potential for some further reduction. Struggles with pain right knee greater than left. LTG Duration 09/10/23 Assessment Summary Assessment some variability in circumferential measurements as above, no consistent pattern except on right distally measurements inc likely due to patient report of twisting right knee a couple days ago, otherwise stable, some decreases. Appears to have good compliance to self management except has not yet started aquatic exercises. Pursuing lipedema surgery with Dr. Schuler in Dr. Alvarez's office in [facility], first consult Jan 20. Physical Therapy Plan Frequency and Duration Frequency of Treatment Every Other Week Duration of treatment (weeks) 8 Plan of Care Start Date 12/20/23 Plan of Care End Date 03/11/24 Therapeutic Interventions Therapeutic Interventions Home Exercise Program, Lymphedema Management,Manual Therapy,Patient/Caregiver Education,Self-Care/Home Management,Therapeutic Activities,Therapeutic Exercises Modalities Vasopneumatic Devices Next Visit Focus/Plan Next Note Type Treatment Note Next Visit Plan Continue complete decongestive therapy with emphasis MLD as patient prepares for lipedema surgery.
--- NOTE | 2024-01-12 13:58 | PT.OTN ---
Current Diagnoses Lymphedema, not elsewhere classified (01/12/24) Physical Therapy Treatment Note PT-OP-A Visit Information Start: 03/23/23 14:26 Freq: Status: Active Protocol: Document 01/12/24 10:46 SAK (Rec: 01/12/24 11:12 [facility] [id number]) Out-Patient Physical Therapy Visit Information Visit Information Visit Type Treatment Note Visit Start Time 10:46 Visit Stop Time 12:11 Visit Number 14 Evaluation Information Evaluation Date 03/24/23 Precautions Precautions neva knee pain, right hip pain PT-OP-B Current Condition Start: 03/23/23 14:26 Freq: Status: Active Protocol: Document 01/12/24 10:46 SAK (Rec: 01/12/24 11:12 [facility] [id number]) Current Condition History of Current Condition Onset Date 19 y/o Current Complaints LE swelling, newly diagnosed lipedema History of Current Condition Reports her physician diagnosed lipedema 3 months ago. States she thinks she has had since 19 y/o, got worse with and with time. Reports pain and easy bruising palpable nodular areas neva LE's. Put on hormone replacement therapy 1 year ago which was wrong hormone combination and has contributed to fatigue and decreased activity level, and some weight gain which has made lipedema worse. Recently stumbled and injured knees resulting in even more swelling, can't bend knees very well. Massage therapist helped her decrease the knee swelling some, but returns after massage session. Patient also reports having some right hip pain with no known cause. Has done some online research about lipidema . Has started walking in the local pool and experiences some pain relief. Hasn't tried any compression garments as not sure what to try. No other treatment for her lipedema. Patient is 4'10, 293 lbs. Prior Treatments and Tests Gastric sleeve surgery 13 years ago, having horrible acid reflux, may be having another procedure. PT-OP-C Subjective Start: 03/23/23 14:26 Freq: Status: Active Protocol: Document 01/12/24 10:46 SAK (Rec: 01/12/24 11:12 [facility] [id number]) OP-PT Subjective Patient Comments Patient Comments Hasnt made it to the pool for aquatic exercise yet, having difficulty with body image. PT-OP-F Manual Assessment Start: 03/23/23 14:26 Freq: Status: Active Protocol: Document 03/24/23 10:34 SAK (Rec: 03/24/23 16:55 [facility] [id number]) Manual Assessments Soft Tissue Assessment Soft Tissue Mobility Assessment Palpation of neva LE's reveals tenderness, multiple nodules throughout LE's. No warmth or redness, no pitting PT-OP-G Mobility & Gait Start: 03/23/23 14:26 Freq: Status: Active Protocol: Document 03/24/23 10:34 SAK (Rec: 03/24/23 16:55 [facility] [id number]) OP Gait Assessment Gait Gait Assistance Required: Independent Assistive Devices Assistive Device None Gait Deviations General Gait Pattern Decreased Stride Length, Decreased Feet Clearance Factors Limiting Gait Function Factors Limiting Gait Function Pain PT-OP-H Neuro Start: 03/23/23 14:26 Freq: Status: Active Protocol: Document 03/24/23 10:34 SAK (Rec: 03/24/23 16:55 [facility] [id number]) Sensation Evaluation Gross Sensation Gross Sensation WNL PT-OP-K Range of Motion Start: 03/23/23 14:26 Freq: Status: Active Protocol: Document 03/24/23 10:34 SAK (Rec: 03/24/23 16:55 [facility] [id number]) Hip Goniometric Range of Motion Hip neva Hip ROM WFL Yes Comments pain on right all motions Hip ROM Limitations Hip ROM Limitations Pain Knee Goniometric Range of Motion Knee Left Knee ROM WFL No Flexion Active (degrees) 100 Extension Active (degrees) 0 Right Knee ROM WFL No Flexion Active (degrees) 95 Extension Active (degrees) 0 Knee ROM Limitations Knee ROM Limitations Pain,Swelling Ankle and Foot Goniometric Range of Motion Ankle and Foot neva Ankle/Foot ROM WFL Yes PT-OP-M Strength Start: 03/23/23 14:26 Freq: Status: Active Protocol: Document 03/24/23 10:34 SAK (Rec: 03/24/23 16:55 [facility] [id number]) Hip Strength Hip Manual Muscle Testing Right Flexion (L2) 4- Good- Extension (S1) 3+ Fair+ Abduction 3+ Fair+ Adduction 4- Good- External Rotation 3+ Fair+ Internal Rotation 4- Good- Comments pain all resisted motions Left Flexion (L2) 4+ Good+ Extension (S1) 4- Good- Abduction 4- Good- Adduction 4 Good External Rotation 4- Good- Internal Rotation 4 Good Knee Strength Knee Manual Muscle Testing Right Flexion (S2) 4- Good- Extension (L3) 4- Good- Comments pain right Left Flexion (S2) 4 Good Extension (L3) 4 Good PT-OP-N Lymphedema Start: 03/23/23 14:26 Freq: Status: Active Protocol: Document 01/12/24 10:46 JODY (Rec: 01/12/24 11:12 [facility] [id number]) Lymphedema Measurements Lower Extremity Circumference Measurements Right Affected MT Heads 24.3 cm Mid-foot 24.3 cm Medial Malleolus 31.1 cm 10 cm From Medial Malleolus 35.3 cm 20 cm From Medial Malleolus 47.4 cm 30 cm From Medial Malleolus 51.9 cm 40 cm From Medial Malleolus 47.5 cm 50 cm From Medial Malleolus 54 cm 60 cm From Medial Malleolus 64.4 cm 70 cm From Medial Malleolus 73.5 cm 80 cm From Medial Malleolus 91.9 cm Knee Joint 50 cm Left Affected MT Heads 25.3 cm Mid-foot 25.3 cm Medial Malleolus 30.7 cm 10 cm From Medial Malleolus 37 cm 20 cm From Medial Malleolus 46.7 cm 30 cm From Medial Malleolus 55.6 cm 40 cm From Medial Malleolus 50 cm 50 cm From Medial Malleolus 60.5 cm 60 cm From Medial Malleolus 68.7 cm 70 cm From Medial Malleolus 76.8 cm 80 cm From Medial Malleolus 91 cm Knee Joint 51.9 cm PT-OP-Q Treatments Start: 03/23/23 14:26 Freq: Status: Active Protocol: Document 01/12/24 10:46 [facility] (Rec: 01/12/24 11:12 [facility] [id number]) Lymphedema Treatment Manual Lymphatic Drainage Location bilateral LE's, hips, buttocks , and abdomen Duration 60 Comments review technique during session Lymphedema Wrapping Materials Patient wearing Jobst Confidence garment, good fit observed Sequential Lymphedema Exercises Location HEP Compression Garment Assessment Compression Garment Assessment Details good fit Jobst Confidence garment, able to don independently Patient Education Other consistent aquatic exercise recommended. PT-OP-T Assessment and Plan Start: 03/23/23 14:26 Freq: Status: Active Protocol: Document 01/12/24 10:46 JODY (Rec: 01/12/24 11:12 [facility] [id number]) Physical Therapy Assessment Goals Three Impairment pain and limited ROM and strength neva knees Impairment limits ability to stand and walk in home and community Short Term Goal (STG) Patient to be instructed in lipedema management as well as land and aquatic-based ther ex for improvement of neva knee ROM and strength for improved function in the home and community. 04/26/23: goal met STG Duration goal met Doughnut Maker Goal (LTG) Patient to demonstrate neva knee ROM WFL and strength at least 4+/5 and be able to stand and walk at least 30 min . 12/20/23: goal progress, knee ROM 0-105. Pain worst in right knee and in multiple painful nodules throughout her legs. LTG Duration 02/19/24 Two Impairment activity tolerance Impairment Lymphedema Life Impact Scale 56% Short Term Goal (STG) Decrease Lymphedema Life Impact Scale to no greater than 40% as measure of improved activity tolerance and quality of life. 04/26/23: goal met STG Duration goal met Penitentiary Goal (LTG) Decrease Lymphedema Life Impact Scale to no greater than 20% as measure of improved activity tolerance and quality of life. 06/10/23: no further progress, feel will achieve once obtains custom compression and receives Flexitouch pump 12/20/23: good goal progress to 26%. LTG Duration 02/19/24 One Impairment lipedema bilateral LE's Short Term Goal (STG) Patient will be instructed in all aspects of lipedema self- care to include skin care, self-massage, self-bandaging/ compression options, and lymphedema exercises. 04/26/23: goal met STG Duration goal met Doughnut Maker Goal (LTG) Decrease patient?s lipedema to a stable level (no increase or decrease greater than 1 cm over the course of 1 week), patient to be independent with all aspects of self care as above for lipedema, and will obtain appropriate compression garment for lipedema management in the home. Consider home pneumatic compression pump for management of lipedema 06/10/23: good goal progress. Receiving custom garments next Wednesday, PT assisting patient in obtaining pneumatic compression pump 12/20/23: has struggled with obtaining well fitting garments but now has. Had anticipated surgery by now but due to insurance challenges hasn't yet. Has some reduction in circumferential measurements most places neva LE's (not right knee), has potential for some further reduction. Struggles with pain right knee greater than left. LTG Duration 09/10/23 Assessment Summary Assessment All circumferential measurements decreased right LE, only decreased distally on left LE. Has been following a strict no carb diet, seeing if that contributing to inflamed state of body. Is compliant to all aspects of lymphedema self management except hasn't gone to pool due to struggling with body image issues. Doing HEP exercises and walking. Physical Therapy Plan Frequency and Duration Frequency of Treatment Every Other Week Duration of treatment (weeks) 8 Plan of Care Start Date 12/20/23 Plan of Care End Date 03/11/24 Therapeutic Interventions Therapeutic Interventions Home Exercise Program, Lymphedema Management,Manual Therapy,Patient/Caregiver Education,Self-Care/Home Management,Therapeutic Activities,Therapeutic Exercises Modalities Vasopneumatic Devices Next Visit Focus/Plan Next Note Type Treatment Note Next Visit Plan Continue complete decongestive therapy with emphasis MLD as patient prepares for lipedema surgery. Encourage aquatic exercise.
--- NOTE | 2024-02-22 10:45 | PT.OTN ---
Current Diagnoses Lymphedema, not elsewhere classified (02/22/24) Physical Therapy Treatment Note PT-OP-A Visit Information Start: 03/23/23 14:26 Freq: Status: Active Protocol: Document 02/22/24 10:46 SAK (Rec: 02/22/24 12:19 [facility] [id number]) Out-Patient Physical Therapy Visit Information Visit Information Visit Type Treatment Note Visit Start Time 10:46 Visit Stop Time 12:13 Visit Number 16 Evaluation Information Evaluation Date 03/24/23 Precautions Precautions neva knee pain, right hip pain PT-OP-B Current Condition Start: 03/23/23 14:26 Freq: Status: Active Protocol: Document 02/22/24 10:46 SAK (Rec: 02/22/24 12:19 [facility] [id number]) Current Condition History of Current Condition Onset Date 19 y/o Current Complaints LE swelling, newly diagnosed lipedema History of Current Condition Reports her physician diagnosed lipedema 3 months ago. States she thinks she has had since 19 y/o, got worse with and with time. Reports pain and easy bruising palpable nodular areas neva LE's. Put on hormone replacement therapy 1 year ago which was wrong hormone combination and has contributed to fatigue and decreased activity level, and some weight gain which has made lipedema worse. Recently stumbled and injured knees resulting in even more swelling, can't bend knees very well. Massage therapist helped her decrease the knee swelling some, but returns after massage session. Patient also reports having some right hip pain with no known cause. Has done some online research about lipidema . Has started walking in the local pool and experiences some pain relief. Hasn't tried any compression garments as not sure what to try. No other treatment for her lipedema. Patient is 4'10, 293 lbs. Prior Treatments and Tests Gastric sleeve surgery 13 years ago, having horrible acid reflux, may be having another procedure. PT-OP-C Subjective Start: 03/23/23 14:26 Freq: Status: Active Protocol: Document 02/22/24 10:46 SAK (Rec: 02/22/24 12:19 [facility] [id number]) OP-PT Subjective Patient Comments Patient Comments Just got a total insurance denial for lipedema with Dr. Fitzgerald, is going to do appeal. Working with catalytic case operator at [facility]. Flew to [employer] to visit family, didn't take pumps, went into Jacuzzi (no pool available), did self massage, wore compression, feels more swollen. Very frustrated by now 3rd denial for lipedema surgery. PT-OP-F Manual Assessment Start: 03/23/23 14:26 Freq: Status: Active Protocol: Document 03/24/23 10:34 SAK (Rec: 03/24/23 16:55 [facility] [id number]) Manual Assessments Soft Tissue Assessment Soft Tissue Mobility Assessment Palpation of neva LE's reveals tenderness, multiple nodules throughout LE's. No warmth or redness, no pitting PT-OP-G Mobility & Gait Start: 03/23/23 14:26 Freq: Status: Active Protocol: Document 03/24/23 10:34 SAK (Rec: 03/24/23 16:55 [facility] [id number]) OP Gait Assessment Gait Gait Assistance Required: Independent Assistive Devices Assistive Device None Gait Deviations General Gait Pattern Decreased Stride Length, Decreased Feet Clearance Factors Limiting Gait Function Factors Limiting Gait Function Pain PT-OP-H Neuro Start: 03/23/23 14:26 Freq: Status: Active Protocol: Document 03/24/23 10:34 SAK (Rec: 03/24/23 16:55 [facility] [id number]) Sensation Evaluation Gross Sensation Gross Sensation WNL PT-OP-K Range of Motion Start: 03/23/23 14:26 Freq: Status: Active Protocol: Document 03/24/23 10:34 SAK (Rec: 03/24/23 16:55 [facility] [id number]) Hip Goniometric Range of Motion Hip neva Hip ROM WFL Yes Comments pain on right all motions Hip ROM Limitations Hip ROM Limitations Pain Knee Goniometric Range of Motion Knee Left Knee ROM WFL No Flexion Active (degrees) 100 Extension Active (degrees) 0 Right Knee ROM WFL No Flexion Active (degrees) 95 Extension Active (degrees) 0 Knee ROM Limitations Knee ROM Limitations Pain,Swelling Ankle and Foot Goniometric Range of Motion Ankle and Foot neva Ankle/Foot ROM WFL Yes PT-OP-M Strength Start: 03/23/23 14:26 Freq: Status: Active Protocol: Document 03/24/23 10:34 SAK (Rec: 03/24/23 16:55 [facility] [id number]) Hip Strength Hip Manual Muscle Testing Right Flexion (L2) 4- Good- Extension (S1) 3+ Fair+ Abduction 3+ Fair+ Adduction 4- Good- External Rotation 3+ Fair+ Internal Rotation 4- Good- Comments pain all resisted motions Left Flexion (L2) 4+ Good+ Extension (S1) 4- Good- Abduction 4- Good- Adduction 4 Good External Rotation 4- Good- Internal Rotation 4 Good Knee Strength Knee Manual Muscle Testing Right Flexion (S2) 4- Good- Extension (L3) 4- Good- Comments pain right Left Flexion (S2) 4 Good Extension (L3) 4 Good PT-OP-N Lymphedema Start: 03/23/23 14:26 Freq: Status: Active Protocol: Document 02/22/24 10:46 JODY (Rec: 02/22/24 12:19 [facility] [id number]) Lymphedema Measurements Lower Extremity Circumference Measurements Right Affected MT Heads 24.2 cm Mid-foot 24.5 cm Medial Malleolus 30.5 cm 10 cm From Medial Malleolus 36.3 cm 20 cm From Medial Malleolus 47.8 cm 30 cm From Medial Malleolus 52.5 cm 40 cm From Medial Malleolus 49.3 cm 50 cm From Medial Malleolus 57 cm 60 cm From Medial Malleolus 65.8 cm 70 cm From Medial Malleolus 81 cm 80 cm From Medial Malleolus 91.5 cm Knee Joint 52 cm Left Affected MT Heads 25.3 cm Mid-foot 25.8 cm Medial Malleolus 30.8 cm 10 cm From Medial Malleolus 37 cm 20 cm From Medial Malleolus 48.5 cm 30 cm From Medial Malleolus 55 cm 40 cm From Medial Malleolus 49.5 cm 50 cm From Medial Malleolus 59.5 cm 60 cm From Medial Malleolus 69.8 cm 70 cm From Medial Malleolus 75.8 cm 80 cm From Medial Malleolus 92 cm Knee Joint 51.7 cm PT-OP-Q Treatments Start: 03/23/23 14:26 Freq: Status: Active Protocol: Document 02/22/24 10:46 JODY (Rec: 02/22/24 12:19 [facility] [id number]) Cardio Equipment Recumbent Stepper (Sci-Fit) Other 20 min prior to treatment Manual Therapy Treatment Taping left lower leg Treatment Focus edema reduction Type of Tape KT Skin Inspection intact Comments 4 fan strips, bases proximal toward popliteal fossa, crossed pattern. Lymphedema Treatment Manual Lymphatic Drainage Location bilateral LE's, hips, buttocks , and abdomen Duration 60 Lymphedema Wrapping Materials Patient wearing Jobst Confidence garment, good fit observed Compression Garment Assessment Compression Garment Assessment Details good fit Jobst Confidence garment, able to don independently Other Other discussion of her plan moving forward with potentially another surgeon who will accept the 80% her insurance pays. PT-OP-T Assessment and Plan Start: 03/23/23 14:26 Freq: Status: Active Protocol: Document 02/22/24 10:46 [facility] (Rec: 02/22/24 12:19 [facility] [id number]) Physical Therapy Assessment Goals Three Impairment pain and limited ROM and strength neva knees Impairment limits ability to stand and walk in home and community Short Term Goal (STG) Patient to be instructed in lipedema management as well as land and aquatic-based ther ex for improvement of neva knee ROM and strength for improved function in the home and community. 04/26/23: goal met STG Duration goal met Geography Instructor Goal (LTG) Patient to demonstrate neva knee ROM WFL and strength at least 4+/5 and be able to stand and walk at least 30 min . 12/20/23: goal progress, knee ROM 0-105. Pain worst in right knee and in multiple painful nodules throughout her legs. LTG Duration 03/11/24 Two Impairment activity tolerance Impairment Lymphedema Life Impact Scale 56% Short Term Goal (STG) Decrease Lymphedema Life Impact Scale to no greater than 40% as measure of improved activity tolerance and quality of life. 04/26/23: goal met STG Duration goal met Jail Goal (LTG) Decrease Lymphedema Life Impact Scale to no greater than 20% as measure of improved activity tolerance and quality of life. 06/10/23: no further progress, feel will achieve once obtains custom compression and receives Flexitouch pump 12/20/23: good goal progress to 26%. LTG Duration 03/11/24 One Impairment lipedema bilateral LE's Short Term Goal (STG) Patient will be instructed in all aspects of lipedema self- care to include skin care, self-massage, self-bandaging/ compression options, and lymphedema exercises. 04/26/23: goal met STG Duration goal met Jail Goal (LTG) Decrease patient?s lipedema to a stable level (no increase or decrease greater than 1 cm over the course of 1 week), patient to be independent with all aspects of self care as above for lipedema, and will obtain appropriate compression garment for lipedema management in the home. Consider home pneumatic compression pump for management of lipedema 06/10/23: good goal progress. Receiving custom garments next Wednesday, PT assisting patient in obtaining pneumatic compression pump 12/20/23: has struggled with obtaining well fitting garments but now has. Had anticipated surgery by now but due to insurance challenges hasn't yet. Has some reduction in circumferential measurements most places neva LE's (not right knee), has potential for some further reduction. Struggles with pain right knee greater than left. LTG Duration 03/11/24 Assessment Summary Assessment Majority of measurements increased after plane flights and no use of pump or pool. Patient frustrated with continued challenges with getting coverage or lipedema surgeon willing to accept assignment from insurance. She continues to look at options. Encouraged aquatic exercise return. Physical Therapy Plan Frequency and Duration Frequency of Treatment Every Other Week Duration of treatment (weeks) 8 Plan of Care Start Date 12/20/23 Plan of Care End Date 03/11/24 Therapeutic Interventions Therapeutic Interventions Home Exercise Program, Lymphedema Management,Manual Therapy,Patient/Caregiver Education,Self-Care/Home Management,Therapeutic Activities,Therapeutic Exercises Modalities Vasopneumatic Devices Next Visit Focus/Plan Next Note Type Treatment Note Next Visit Plan Re-evaluation, discuss POC.
--- NOTE | 2024-03-07 13:58 | PT.OTN ---
Current Diagnoses Lymphedema, not elsewhere classified (03/07/24) Physical Therapy Treatment Note PT-OP-A Visit Information Start: 03/23/23 14:26 Freq: Status: Active Protocol: Document 03/07/24 10:42 SAK (Rec: 03/07/24 11:26 [facility] [id number]) Out-Patient Physical Therapy Visit Information Visit Information Visit Type Treatment Note Visit Start Time 10:45 Visit Stop Time 12:10 Visit Number 17 Evaluation Information Evaluation Date 03/24/23 Precautions Precautions neva knee pain, right hip pain PT-OP-B Current Condition Start: 03/23/23 14:26 Freq: Status: Active Protocol: Document 03/07/24 10:42 SAK (Rec: 03/07/24 11:26 [facility] [id number]) Current Condition History of Current Condition Onset Date 19 y/o Current Complaints LE swelling, newly diagnosed lipedema History of Current Condition Reports her physician diagnosed lipedema 3 months ago. States she thinks she has had since 19 y/o, got worse with and with time. Reports pain and easy bruising palpable nodular areas neva LE's. Put on hormone replacement therapy 1 year ago which was wrong hormone combination and has contributed to fatigue and decreased activity level, and some weight gain which has made lipedema worse. Recently stumbled and injured knees resulting in even more swelling, can't bend knees very well. Massage therapist helped her decrease the knee swelling some, but returns after massage session. Patient also reports having some right hip pain with no known cause. Has done some online research about lipidema . Has started walking in the local pool and experiences some pain relief. Hasn't tried any compression garments as not sure what to try. No other treatment for her lipedema. Patient is 4'10, 293 lbs. Prior Treatments and Tests Gastric sleeve surgery 13 years ago, having horrible acid reflux, may be having another procedure. PT-OP-C Subjective Start: 03/23/23 14:26 Freq: Status: Active Protocol: Document 03/07/24 10:42 SAK (Rec: 03/07/24 11:26 [facility] [id number]) OP-PT Subjective Patient Comments Patient Comments Has appointment with new surgeon in [place], Dr. Kurtis Miguel [facility], will accept S[facility]. Has gotten in the pool 2x since last seen, overdid. Wore Jobst Confidence garment, concerned about fit proximal in back slides down, needs to order new one but wants better fit, asking PT to look at it. Fell last week while hiking, fell onto right side, anticipates increased circumferences due to inflammation. Reports arms and legs both more tender recently. Also experiencing seasonal allergies, asthma, feels inflamed. PT-OP-F Manual Assessment Start: 03/23/23 14:26 Freq: Status: Active Protocol: Document 03/24/23 10:34 SAK (Rec: 03/24/23 16:55 [facility] [id number]) Manual Assessments Soft Tissue Assessment Soft Tissue Mobility Assessment Palpation of neva LE's reveals tenderness, multiple nodules throughout LE's. No warmth or redness, no pitting PT-OP-G Mobility & Gait Start: 03/23/23 14:26 Freq: Status: Active Protocol: Document 03/24/23 10:34 SAK (Rec: 03/24/23 16:55 [facility] [id number]) OP Gait Assessment Gait Gait Assistance Required: Independent Assistive Devices Assistive Device None Gait Deviations General Gait Pattern Decreased Stride Length, Decreased Feet Clearance Factors Limiting Gait Function Factors Limiting Gait Function Pain PT-OP-H Neuro Start: 03/23/23 14:26 Freq: Status: Active Protocol: Document 03/24/23 10:34 SAK (Rec: 03/24/23 16:55 [facility] [id number]) Sensation Evaluation Gross Sensation Gross Sensation WNL PT-OP-K Range of Motion Start: 03/23/23 14:26 Freq: Status: Active Protocol: Document 03/24/23 10:34 SAK (Rec: 03/24/23 16:55 [facility] [id number]) Hip Goniometric Range of Motion Hip neva Hip ROM WFL Yes Comments pain on right all motions Hip ROM Limitations Hip ROM Limitations Pain Knee Goniometric Range of Motion Knee Left Knee ROM WFL No Flexion Active (degrees) 100 Extension Active (degrees) 0 Right Knee ROM WFL No Flexion Active (degrees) 95 Extension Active (degrees) 0 Knee ROM Limitations Knee ROM Limitations Pain,Swelling Ankle and Foot Goniometric Range of Motion Ankle and Foot neva Ankle/Foot ROM WFL Yes PT-OP-M Strength Start: 03/23/23 14:26 Freq: Status: Active Protocol: Document 03/24/23 10:34 SAK (Rec: 03/24/23 16:55 [facility] [id number]) Hip Strength Hip Manual Muscle Testing Right Flexion (L2) 4- Good- Extension (S1) 3+ Fair+ Abduction 3+ Fair+ Adduction 4- Good- External Rotation 3+ Fair+ Internal Rotation 4- Good- Comments pain all resisted motions Left Flexion (L2) 4+ Good+ Extension (S1) 4- Good- Abduction 4- Good- Adduction 4 Good External Rotation 4- Good- Internal Rotation 4 Good Knee Strength Knee Manual Muscle Testing Right Flexion (S2) 4- Good- Extension (L3) 4- Good- Comments pain right Left Flexion (S2) 4 Good Extension (L3) 4 Good PT-OP-N Lymphedema Start: 03/23/23 14:26 Freq: Status: Active Protocol: Document 03/07/24 10:42 [facility] (Rec: 03/07/24 11:26 [facility] [id number]) Lymphedema Measurements Lower Extremity Circumference Measurements Right Affected MT Heads 24.2 cm Mid-foot 23.2 cm Medial Malleolus 30.4 cm 10 cm From Medial Malleolus 37.2 cm 20 cm From Medial Malleolus 49.2 cm 30 cm From Medial Malleolus 53.2 cm 40 cm From Medial Malleolus 50 cm 50 cm From Medial Malleolus 59.3 cm 60 cm From Medial Malleolus 67.8 cm 70 cm From Medial Malleolus 80.7 cm 80 cm From Medial Malleolus 96 cm Knee Joint 50.2 cm - waist 107 cm hips 145 cm Left Affected MT Heads 24.7 cm Mid-foot 24.4 cm Medial Malleolus 30.7 cm 10 cm From Medial Malleolus 36.8 cm 20 cm From Medial Malleolus 48.7 cm 30 cm From Medial Malleolus 54.4 cm 40 cm From Medial Malleolus 50.7 cm 50 cm From Medial Malleolus 60 cm 60 cm From Medial Malleolus 70.2 cm 70 cm From Medial Malleolus 76 cm 80 cm From Medial Malleolus 97 cm Knee Joint 52 cm PT-OP-Q Treatments Start: 03/23/23 14:26 Freq: Status: Active Protocol: Document 03/07/24 10:42 JODY (Rec: 03/07/24 11:26 [facility] [id number]) Cardio Equipment Recumbent Stepper (Sci-Fit) Other 10 min prior to treatment to facilitate lymphatic flow Manual Therapy Treatment Taping left lower leg Comments deferred, didn't feel like it was helpful. Lymphedema Treatment Manual Lymphatic Drainage Location bilateral LE's, hips, buttocks , and abdomen Duration 60 Lymphedema Wrapping Materials Patient wearing Jobst Confidence garment, slides down in back with movement, recommend silicone at [employer] for new one. Compression Garment Assessment Compression Garment Assessment Details mostly good fit, slides down in back with any movement. Other Other New surgeon consult in March as above. Circumferential measurements and took pictures of fit of Jobst Confidence for patient to consult with the [facility] when orders new. PT-OP-T Assessment and Plan Start: 03/23/23 14:26 Freq: Status: Active Protocol: Document 03/07/24 10:42 [facility] (Rec: 03/07/24 11:26 [facility] [id number]) Physical Therapy Assessment Goals Three Impairment pain and limited ROM and strength neva knees Impairment limits ability to stand and walk in home and community Short Term Goal (STG) Patient to be instructed in lipedema management as well as land and aquatic-based ther ex for improvement of neva knee ROM and strength for improved function in the home and community. 04/26/23: goal met STG Duration goal met [facility] Goal (LTG) Patient to demonstrate neva knee ROM WFL and strength at least 4+/5 and be able to stand and walk at least 30 min . 12/20/23: goal progress, knee ROM 0-105. Pain worst in right knee and in multiple painful nodules throughout her legs. 03/07/24: goal met LTG Duration 03/11/24 Two Impairment activity tolerance Impairment Lymphedema Life Impact Scale 56% Short Term Goal (STG) Decrease Lymphedema Life Impact Scale to no greater than 40% as measure of improved activity tolerance and quality of life. 04/26/23: goal met STG Duration goal met Crate Icer Goal (LTG) Decrease Lymphedema Life Impact Scale to no greater than 20% as measure of improved activity tolerance and quality of life. 06/10/23: no further progress, feel will achieve once obtains custom compression and receives Flexitouch pump 12/20/23: good goal progress to 26%. 03/07/24 LTG Duration 03/11/24 One Impairment lipedema bilateral LE's Short Term Goal (STG) Patient will be instructed in all aspects of lipedema self- care to include skin care, self-massage, self-bandaging/ compression options, and lymphedema exercises. 04/26/23: goal met STG Duration goal met Crate Icer Goal (LTG) Decrease patient?s lipedema to a stable level (no increase or decrease greater than 1 cm over the course of 1 week), patient to be independent with all aspects of self care as above for lipedema, and will obtain appropriate compression garment for lipedema management in the home. Consider home pneumatic compression pump for management of lipedema 06/10/23: good goal progress. Receiving custom garments next Wednesday, PT assisting patient in obtaining pneumatic compression pump 12/20/23: has struggled with obtaining well fitting garments but now has. Had anticipated surgery by now but due to insurance challenges hasn't yet. Has some reduction in circumferential measurements most places neva LE's (not right knee), has potential for some further reduction. Struggles with pain right knee greater than left. 03/07/24: goal met LTG Duration 03/11/24 Assessment Summary Assessment Measurements stable except right LE increased likely due to inflammation from fall. Patient going to order new Jobst Confidence garments after discussing issues noted above; PT took pictures and recommended silicone on waistband. At this time no further PT needs, will continue with self care for lipedema. May benefit from further PT pre-op and post-op next year pending physician recommendations. Physical Therapy Plan Discharge Physical Therapy Discharge Reasons Goals Met Discharge Comments May benefit from PT pre and post op next year.
== END 2024-03-17 09:26 | disposition home or self-care (01) ==
LOC: PHYS 10:45
PROVIDERS: Family Provider Family Medicine; PCP Family Medicine; Referring Provider Family Medicine; Visit Provider Family Medicine
DX: I89.0 Lymphedema, not elsewhere classified (principal)
CPT/HCPCS: 29581; 97110; 97112; 97140; 97162; 97530; 97535

== ENCOUNTER → 2024-03-07 13:20 | Outpatient (CLI) | payer OTHER, SELFPAY ==
[2024-03-07 14:54] LABS: Add Manual Diff / Slide Review NO; Basophils Absolute Auto 100 /uL (0-100); Basophils Percent Auto 1.4 % (0-2); Eosinophils Absolute Auto 100 /uL (0-450); Eosinophils Percent Auto 2.2 % (2-4); Hematocrit 39.8 % (36-46); Hemoglobin 13.4 g/dL (12.0-16.0); Lymphocytes Absolute Auto 2200 /uL (1100-4500); Lymphocytes Percent Auto 35.6 % (25-40); Mean Corpuscular HGB Conc 33.7 % (30-36); Mean Corpuscular Hemoglobin 28.4 PG (26-34); Mean Corpuscular Volume 84.2 fL (80-100); Monocytes Absolute Auto 300 /uL (0-900); Monocytes Percent Auto 5.5 % (3-14); Neutrophils Absolute Auto 3500 /uL (1500-7000); Neutrophils Percent Auto 55.3 % (50-75); Platelet Count 231 X10^3/uL (150-400); Red Blood Cell Count 4.73 X10^6/uL (4.0-5.2); Red Cell Distribution Width 14.3 % (11.6-14.8); White Blood Cell Count 6.3 X10^3/uL (4.5-11.0)
[2024-03-07 15:19] LABS: Alanine Aminotransferase 19 IU/L (<35); Albumin 4.1 g/dL (3.5-5.0); Albumin Globulin Ratio 1.6 (1.0-2.8); Alkaline Phosphatase 139 U/L (38-126); Aspartate Aminotransferase 23 IU/L (14-36); BUN Creatinine Ratio 20.2 (6-22); Bilirubin Total 0.4 mg/dL (0.2-1.3); Blood Urea Nitrogen 17 mg/dL (7-17); Calcium 9.2 mg/dL (8.4-10.2); Carbon Dioxide 27 mmol/L (22-32); Chloride 106 mmol/L (98-107); Cholesterol 256 mg/dL (140-199); Estimated Glomerular Filt Rate > 60 mL/min (>60); Globulin 2.6 g/dL (1.7-4.1); Glucose 88 mg/dL (80-110); HDL Cholesterol 55 mg/dL (40-60); HEMOLYSIS < 15 (0-50); Hemoglobin A1C% w Est Avg Glu 5.4 % (4.0-6.0); LDL Cholesterol Calculated 174 mg/dL (<100); Potassium 4.1 mmol/L (3.4-5.1); Sodium 139 mmol/L (137-145); Total Protein 6.7 g/dL (6.3-8.2); Triglycerides 133 mg/dL (35-150)
[2024-03-07 15:46] LABS: Vitamin D 25 Hydroxy (D3) 64.9 ng/mL (30.0-100.0)
== END ==
PROVIDERS: Family Provider Family Medicine; PCP Family Medicine; Referring Provider Family Medicine; Visit Provider Family Medicine
DX: Z13.1 Encounter for screening for diabetes mellitus (principal); Z13.6 Encounter for screening for cardiovascular disorders; E78.2 Mixed hyperlipidemia; E66.813 Obesity, class 3; E66.01 Morbid (severe) obesity due to excess calories; R60.9 Edema, unspecified; E78.1 Pure hyperglyceridemia; R26.89 Other abnormalities of gait and mobility; E55.9 Vitamin D deficiency, unspecified; Z68.41 Body mass index [BMI] 40.0-44.9, adult
CPT/HCPCS: 36415; 80053; 80061; 82306; 83036; 85025

== ENCOUNTER 2024-04-20 14:17 | Outpatient (RCR) | payer OTHER, SELFPAY ==
--- NOTE | 2024-04-20 16:45 | PT.OIE ---
Current Diagnoses Lymphedema, not elsewhere classified (04/20/24) Edema, unspecified (04/20/24) Past Medical History (Last Updated 01/27/24 @ 08:15 by GIANCARLO Rasheed) Asthma exacerbation Menopausal and female climacteric states Morbid (severe) obesity due to excess calories Pneumonia Recurrent HSV (herpes simplex virus) Well woman exam with routine gynecological exam Past Surgical History (Last Reviewed 08/03/23 @ 10:54 by Johnny Kim MD) History of bariatric surgery Visit Care Team Role Provider Type Elina Johnson MD Attending Provider Physician Family Provider Primary Care Provider Referring Provider Specialty: [facility] Address: [address] [place] [address], [facility] Email: [email or web address] Physical Therapy Initial Evaluation PT-OP-A Visit Information Start: 04/19/24 17:02 Freq: Status: Active Protocol: Document 04/20/24 14:35 SAK (Rec: 04/20/24 15:57 SAK [id number]) Out-Patient Physical Therapy Visit Information Visit Information Visit Type Initial Evaluation Visit Start Time 14:35 Visit Stop Time 15:50 Visit Number 1 Precautions Precautions lipedema, pain PT-OP-B Current Condition Start: 04/19/24 17:02 Freq: Status: Active Protocol: Document 04/20/24 14:35 SAK (Rec: 04/20/24 15:57 SAK [id number]) Current Condition History of Current Condition Onset Date 11/2022 Current Complaints lipedema, functional decline History of Current Condition Patient previously seen for lipedema treatment after diagnosis 12/12, though states has had symptoms since she was 19 y/o. Presents today for lipedema physical capacity evaluation as she works toward being approved for lipedema surgery. She remains compliant to all aspects of lipedema self care as instructed by this PT including skin care, elevation , manual lymphatic drainage and use of sequential pneumatic pump, exercise, and compression. 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 Due to the disproportionate deposition of lipedema fat this patient can no longer go see [id number] due to inability to fit. Her lipedema is painful especially in hips, limiting activity tolerance. Prior Treatments and Tests CDT at this clinic, this PT Future Testing and Treatments Planned hopeful for lipedema surgery. 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 PT-OP-Q Treatments Start: 04/19/24 17:02 Freq: Status: Active Protocol: Document 04/20/24 14:35 [facility] (Rec: 04/24/24 16:45 [facility] [id number]) Therapeutic Activity Therapeutic Activity Lipedema physical evaluation Reps/Minutes 40 PT-OP-T Assessment and Plan Start: 04/19/24 17:02 Freq: Status: Active Protocol: Document 04/20/24 14:35 [facility] (Rec: 04/24/24 16:45 [facility] [id number]) Physical Therapy Assessment Assessment Summary Assessment Patient was seen today for a one time visit for a Lipedema Physical Evaluation as she works toward being able to under lipedema surgery to help her with the significant impacts lipedema is having on her activity tolerance and function. Detailed evaluation information is in the PT chart. Patient had moderate to severe challenges completing most testing activities and had a large increase in her pain levels noted at the end. I highly recommend she receive approval for lipedema surgeries to help her decrease her pain and improve her functional activity tolerance and quality of life. Patient previously seen for lipedema and lymphedema management ( lipolymphedem) and she is highly motivated and compliant with her self care program consisting of skin care, elevation, manual lymphatic drainage (supplemented by daily use of sequential pneumatic pump), exercise, and compression. She also uses a vibration plate. Despite all this her lipedema continues to limit her functional activity tolerance and quality of life. Physical Therapy Plan Next Visit Focus/Plan Next Note Type Discharge Summary Next Visit Plan No more further PT is indicated at this time.
--- NOTE | 2024-04-20 16:46 | PT.OPPOC ---
Physical, Occupational & Speech Therapy At [facility] Current Diagnoses Lymphedema, not elsewhere classified (04/20/24) Edema, unspecified (04/20/24) Visit Care Team Role Provider Type Elina Johnson MD Attending Provider Physician Family Provider Primary Care Provider Referring Provider Specialty: Family Practice Address: [address] [place] [address], [facility] Email: [email or web address] Plan Of Care PT-OP-B Current Condition Start: 04/19/24 17:02 Freq: Status: Active Protocol: Document 04/20/24 14:35 SAK (Rec: 04/20/24 15:57 SAK [id number]) Current Condition History of Current Condition Onset Date 11/2022 Current Complaints lipedema, functional decline History of Current Condition Patient previously seen for lipedema treatment after diagnosis 12/12, though states has had symptoms since she was 19 y/o. Presents today for lipedema physical capacity evaluation as she works toward being approved for lipedema surgery. She remains compliant to all aspects of lipedema self care as instructed by this PT including skin care, elevation , manual lymphatic drainage and use of sequential pneumatic pump, exercise, and compression. 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 Due to the disproportionate deposition of lipedema fat this patient can no longer go see kayaking due to inability to fit. Her lipedema is painful especially in hips, limiting activity tolerance. Prior Treatments and Tests CDT at this clinic, this PT Future Testing and Treatments Planned hopeful for lipedema surgery. 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 Detailed evaluation information is in the PT chart. Patient had moderate to severe challenges completing most testing activities and had a large increase in her pain levels noted at the end. I highly recommend she receive approval for lipedema surgeries to help her decrease her pain and improve her functional activity tolerance and quality of life. Patient previously seen for lipedema and lymphedema management ( lipolymphedem) and she is highly motivated and compliant with her self care program consisting of skin care, elevation, manual lymphatic drainage (supplemented by daily use of sequential pneumatic pump), exercise, and compression. She also uses a vibration plate. Despite all this her lipedema continues to limit her functional activity tolerance and quality of life. Physical Therapy Plan Next Visit Focus/Plan Next Note Type Discharge Summary Next Visit Plan No more further PT is indicated at this time. Electronically Signed by: Christelle Martinez, PT 04/24/24 8518 If you are in agreement with this Plan of Care, please return a signed and dated copy. I have reviewed this Plan of Care and certify that the skilled therapy services above are required to meet the patient?s needs. Physician Signature Date Printed Name and Credentials Clinical Instructor Signature Printed Name and Credentials
--- NOTE | 2024-04-24 16:47 | PT.OPDS ---
Current Diagnoses Lymphedema, not elsewhere classified (04/20/24) Edema, unspecified (04/20/24) Visit Care Team Role Provider Type Elina Johnson MD Attending Provider Physician Family Provider Primary Care Provider Referring Provider Specialty: Family Practice Address: [address] [place] [address], [id number] Email: [email or web address] Visit Number Visit Number 1 Discharge Summary PT-OP-B Current Condition Start: 04/19/24 17:02 Freq: Status: Active Protocol: Document 04/20/24 14:35 SAK (Rec: 04/20/24 15:57 SAK [id number]) Current Condition History of Current Condition Onset Date 11/2022 Current Complaints lipedema, functional decline History of Current Condition Patient previously seen for lipedema treatment after diagnosis 12/12, though states has had symptoms since she was 19 y/o. Presents today for lipedema physical capacity evaluation as she works toward being approved for lipedema surgery. She remains compliant to all aspects of lipedema self care as instructed by this PT including skin care, elevation , manual lymphatic drainage and use of sequential pneumatic pump, exercise, and compression. 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 Due to the disproportionate deposition of lipedema fat this patient can no longer go see kayaking due to inability to fit. Her lipedema is painful especially in hips, limiting activity tolerance. Prior Treatments and Tests CDT at this clinic, this PT Future Testing and Treatments Planned hopeful for lipedema surgery. 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 PT-OP-T Assessment and Plan Start: 04/19/24 17:02 Freq: Status: Active Protocol: Document 04/20/24 14:35 [facility] (Rec: 04/24/24 16:45 [facility] [id number]) Physical Therapy Assessment Assessment Summary Assessment Patient was seen today for a one time visit for a Lipedema Physical Evaluation as she works toward being able to under lipedema surgery to help her with the significant impacts lipedema is having on her activity tolerance and function. Detailed evaluation information is in the PT chart. Patient had moderate to severe challenges completing most testing activities and had a large increase in her pain levels noted at the end. I highly recommend she receive approval for lipedema surgeries to help her decrease her pain and improve her functional activity tolerance and quality of life. Patient previously seen for lipedema and lymphedema management ( lipolymphedem) and she is highly motivated and compliant with her self care program consisting of skin care, elevation, manual lymphatic drainage (supplemented by daily use of sequential pneumatic pump), exercise, and compression. She also uses a vibration plate. Despite all this her lipedema continues to limit her functional activity tolerance and quality of life. Physical Therapy Plan Next Visit Focus/Plan Next Note Type Discharge Summary Next Visit Plan No more further PT is indicated at this time.
== END 2024-04-26 13:35 | disposition home or self-care (01) ==
LOC: PHYS 14:17
PROVIDERS: Family Provider Family Medicine; PCP Family Medicine; Referring Provider Family Medicine; Visit Provider Family Medicine
DX: R60.9 Edema, unspecified (principal); I89.0 Lymphedema, not elsewhere classified
CPT/HCPCS: 97162; 97530

== ENCOUNTER → 2024-08-16 08:36 | Outpatient (CLI) | payer OTHER, SELFPAY ==
[2024-08-16 19:31] LABS: Cholesterol 233 mg/dL (140-199); HDL Cholesterol 48 mg/dL (40-60); LDL Cholesterol Calculated 158 mg/dL (<100); Triglycerides 135 mg/dL (35-150)
== END ==
PROVIDERS: Family Provider Family Medicine; PCP Family Medicine; Visit Provider Family Medicine
DX: E78.1 Pure hyperglyceridemia (principal); E78.2 Mixed hyperlipidemia
CPT/HCPCS: 80061

== ENCOUNTER → 2025-02-13 11:03 | Outpatient (CLI) | payer OTHER, SELFPAY ==
--- NOTE | 2025-02-13 11:05 | DI.MG.S_ITS ---
MM screening mammo BI: 02/13/2025. BI-RADS: 1 CLINICAL: 64-year old female for bilateral screening mammogram. Tyrer-Cuzick lifetime risk of 7.5%. No personal or first-degree family history of breast cancer. PRIOR EXAMS 01/25/2024, 08/18/2022. MAMMOGRAPHY TECHNIQUE: 2D and 3D (tomosynthesis) digital mammographic views obtained, with additional images as needed for full coverage. Current study was also evaluated with a Computer Aided Detection (CAD) system. DENSITY B. There are scattered areas of fibroglandular density. MAMMOGRAPHY FINDINGS Bilateral: No suspicious mass, asymmetry, microcalcification, or other abnormality seen. IMPRESSION: * No evidence of malignancy. RECOMMENDATIONS Bilateral * Annual screening mammography. OVERALL ASSESSMENT CATEGORY BI-RADS-1: Negative. The [employer] recommends annual screening mammography beginning at age 40 for women with average risk of breast cancer. ELECTRONICALLY SIGNED: Dot Martinez M.D. on 02/14/2025 at 03:23:04 PM PT Interpreting Station ID: [id number]
== END ==
LOC: MAMMO 11:04
PROVIDERS: Family Provider Family Medicine; PCP Family Medicine; Referring Provider Family Medicine; Visit Provider Family Medicine
DX: Z12.31 Encounter for screening mammogram for malignant neoplasm of breast (principal)
CPT/HCPCS: 77063; 77067

== ENCOUNTER → 2025-03-20 09:17 | Outpatient (CLI) | payer OTHER, SELFPAY ==
[2025-03-20 10:30] LABS: Hematocrit 39.2 % (36-46); Hemoglobin 13.3 g/dL (12.0-16.0); Mean Corpuscular HGB Conc 33.9 % (30-36); Mean Corpuscular Hemoglobin 28.0 PG (26-34); Mean Corpuscular Volume 82.7 fL (80-100); Platelet Count 218 X10^3/uL (150-400)
[2025-03-20 10:39] LABS: Hemoglobin A1C% w Est Avg Glu 5.2 % (4.0-6.0)
[2025-03-20 11:01] LABS: Alanine Aminotransferase 15 IU/L (<35); Albumin 3.9 g/dL (3.5-5.0); Albumin Globulin Ratio 1.4 (1.0-2.8); Alkaline Phosphatase 116 U/L (38-126); Blood Urea Nitrogen 16 mg/dL (7-17); Calcium 9.2 mg/dL (8.4-10.2); Carbon Dioxide 26 mmol/L (22-32); Chloride 105 mmol/L (98-107); Cholesterol 230 mg/dL (140-199); Estimated Glomerular Filt Rate > 60 mL/min (>60); Globulin 2.7 g/dL (1.7-4.1); Glucose 96 mg/dL (70-99); HDL Cholesterol 47 mg/dL (40-60); HEMOLYSIS < 15 (0-50); Potassium 4.3 mmol/L (3.4-5.1); Sodium 138 mmol/L (137-145); Total Protein 6.6 g/dL (6.3-8.2); Triglycerides 227 mg/dL (35-150)
[2025-03-20 11:10] LABS: Vitamin D 25 Hydroxy (D3) 58.6 ng/mL (30.0-100.0)
[2025-03-20 11:35] LABS: Ferritin 18 ng/mL (11-264)
[2025-03-20 12:07] LABS: Folate 14.5 ng/mL (2.76-20.0); Vitamin B12 567 pg/mL (239-931)
== END ==
PROVIDERS: PCP Family Medicine; Referring Provider Family Medicine; Visit Provider Family Medicine
DX: E78.1 Pure hyperglyceridemia (principal); R60.9 Edema, unspecified; E78.2 Mixed hyperlipidemia; E66.01 Morbid (severe) obesity due to excess calories; E55.9 Vitamin D deficiency, unspecified; Z98.84 Bariatric surgery status; E66.813 Obesity, class 3; Z68.41 Body mass index [BMI] 40.0-44.9, adult; R79.89 Other specified abnormal findings of blood chemistry
CPT/HCPCS: 36415; 80053; 80061; 82306; 82607; 82728; 82746; 83036; 85027